=== PATIENT | male | born 1935 | race Caucasian/White ===

== ENCOUNTER 2017-01-08 14:53 | Emergency (ER) | payer MEDICARE, OTHER ==
[~2017-01-08] VITALS: Ht 185.4 cm; Wt 100.0 kg
[~2017-01-08 14:53] MED LIST: ASPI-99 PO; ATOR80TA41; BRIM.2%O EACH EYE; CLOP75 PO; CORE6.25 PO; DORZO2%O EACH EYE; FIORTAB4 PO; LISI-357 PO; MULTTAB23 PO; OMEP20TA PO; SYNT25TA PO; VITA500S3 PO; [UNRECOGNIZED DRUG - OTHER] EACH EYE
[2017-01-08 14:56] VITALS: BP 135/63; PULSE 64; RESP 22; TEMP 98.4; O2SAT 97
--- NOTE | 2017-01-08 15:42 | PD ---
HPI Chief Complaint: Back/ Neck Pain or Injury Time Seen by Provider: 15:42 Travel History International Travel<30 days: No Contact w/Intl Traveler<30days: No Traveled to known affect area: No History of Present Illness HPI 81-year-old male presents to the ED for evaluation of 2 day history of cramping back pain. Gradual onset. Worsened by certain movements. Patient thinks this may be due to sleeping in a friend's bed. States that he flew from [place] 2 days ago and is here to evaluate assisted living facilities. He ambulates with a walker. 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 He denies fever, chills, dysuria, loss of control of his bowels. No treatment at home. PFSH Past Medical History Arthritis: Yes Asthma: No Blood Disorders: No Cancer: Yes (PROSTATE) Cardiovascular Problems: No High Cholesterol: Yes Chemotherapy: No Chest Pain: No Congestive Heart Failure: No COPD: No Cerebrovascular Accident: Yes Endocrine: No Gastrointestinal Disorders: Yes GERD: No Glaucoma: Yes Genitourinary: Yes Headaches: Yes Hepatitis: No Hiatal Hernia: No Hypertension: No Immune Disorder: No Implanted Vascular Access Dvce: No Kidney Stones: Yes Musculoskeletal: No Neurologic: Yes (SDH 07/26/10) Psychiatric: No Reproductive: No Respiratory: Yes Migraines: No Myocardial Infarction: No Radiation Therapy: No Seizures: Yes Sleep Apnea: Yes (WHERES CPAP AT HOME AT NIGHT) Ulcer: Yes (HX OF ESOPHAGEAL ULCERS) Past Surgical History Abdominal Surgery: No AICD: No Appendectomy: No Cardiac Surgery: No Cholecystectomy: No Ear Surgery: No Endocrine Surgery: No Eye Surgery: Yes (RIGHT EYE CATARACT SX) Genitourinary Surgery: Yes (RADICAL PROSTATECTOMY) Gynecologic Surgery: No Joint Replacement: No Neurologic Surgery: Yes (BRAIN SURGERY SHUNT IN 1966 R/T MENINGITITIS PER PT) Oral Surgery: Yes Pacemaker: No Prostatectomy: Yes Thoracic Surgery: No Social History Alcohol Use: No Tobacco Use: No Substance Use: No Allergies-Medications (Allergen,Severity, Reaction): Coded Allergies: Voltaren (Verified Allergy, Severe, Edema, 01/02/13) Reported Meds & Prescriptions Reported Meds & Active Scripts Active Tramadol (Tramadol HCl) 50 Mg Tab 50 Mg PO Q6H PRN Robaxin (Methocarbamol) 500 Mg Tab 1,000 Mg PO TID Reported Lipitor 80 Mg Tab (Atorvastatin) 80 Mg Tab 80 Mg .XX DAILY Coreg (Carvedilol) 6.25 Mg Tab 6.25 Mg PO BID Plavix (Clopidogrel Bisulfate) 75 Mg Tab 75 Mg PO DAILY Aspirin 81 Mg Tab 81 Mg PO DAILY Lisinopril 5 mg (Lisinopril) 5 Mg Tab 5 Mg PO DAILY Esgic Tab (Acetaminophen/Butalbital/Caffeine) 1 Tab Tab 1 Tab PO Q6HPRN FOR PAIN Vitamin B-12 (Cyanocobalamin) 500 Mcg Marcelina 500 Mcg PO DAILY Multi For Him 50+ (Multiple Vitamins W/ Minerals) For Him Tab 1 Tab PO DAILY Omeprazole 20 mg (Omeprazole) 20 Mg Tab 20 Mg PO DAILY Pilocarpine Hcl 1 % Divya 1 Drop EACH EYE BID Trusopt 2% Opht Soln (Dorzolamide HCl) 200 Drop/10 Ml Soln 1 Drop EACH EYE BID Synthroid (Levothyroxine Sodium) 25 Mcg Tab 50 Mcg PO DAILY Alphagan 0.2% (Brimonidine Tartrate) 5 Ml Soln 1 Drop EACH EYE BID Review of Systems Except as stated in HPI: all other systems reviewed are Neg Physical Exam Narrative GENERAL: Well-nourished, well-developed white male in no acute distress. SKIN: Focused skin assessment warm/dry. HEAD: Normocephalic. EYES: No scleral icterus. No injection or drainage. NECK: Supple, trachea midline. No JVD or lymphadenopathy. CARDIOVASCULAR: Regular rate and rhythm without murmurs, gallops, or rubs. RESPIRATORY: Breath sounds clear and equal bilaterally. No accessory muscle use. GASTROINTESTINAL: Abdomen soft, non-tender, nondistended. MUSCULOSKELETAL: No cyanosis, or edema. 5/5 strength in bilateral lower extremities. BACK: No obvious deformity. No CVA tenderness. ++midline TTP in the midlumbar region. Palpable spasm of the paraspinal musculature in the lumbar region. Data Data Last Documented VS Vital Signs Date Time Temp Pulse Resp B/P Pulse Ox O2 Delivery O2 Flow Rate FiO2 01/08/17 14:56 98.4 64 22 135/63 97 Room Air Orders Spine, Lumbar - Ltd (Ap & Lat) (01/08/17 15:57) Methocarbamol Inj (Robaxin Inj) (01/08/17 16:00) Tramadol (Ultram) (01/08/17 16:00) [facility] Medical Decision Making Medical Screen Exam Complete: Yes Emergency Medical Condition: Yes Differential Diagnosis Acute on chronic back pain versus muscle spasm versus low back pain versus muscle strain versus musculoskeletal pain versus other. Narrative Course 81-year-old male presents to the ED for evaluation of 2 day history of cramping back pain. Gradual onset. Worsened by certain movements. Patient thinks this may be due to sleeping in a friend's bed. States that he flew from [place] 2 days ago and is here to evaluate assisted living facilities. He ambulates with a walker. 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 He denies fever, chills, dysuria, loss of control of his bowels. Patient states his narcotic pain medications were taken by the [employer] when he boarded his flight. Unsure of the meds he is prescribed at home. There is mild TTP of the midline and palpable spasms in the lumbar region. X-ray reveals no bony injury. Review of record reveals less than optimal kidney function. I'll avoid NSAIDS. Patient was administered by mouth Tramadol and IM Robaxin. He is prescribed a short course of tramadol and Robaxin, instructed to take medications as prescribed, return to normal, gentle activity as tolerated, follow-up with primary care provider. The patient indicated understanding of instructions and is agreeable to the care plan. He is stable and discharged home. Diagnosis Primary Impression: Muscle spasm Additional Impression: Low back pain Qualified Code: M54.5 - Acute midline low back pain without sciatica Referrals: Primary Care Physician Patient Instructions: Acute Low Back Pain (ED), General Instructions, Muscle Spasm (ED) Additional Instructions: Rest, HYDRATE. Return to normal, gentle activities as tolerated. A mixture of rest and activity is best for back pain. Take Tylenol as directed on the label, as needed for pain. Take muscle relaxants as prescribed for continued muscle spasm. Tramadol as needed for pain greater than 6. [address] while taking tramadol or muscle relaxants. Follow up with your primary care provider. Return to the ED for any urgent or emergent medical condition. Scripts Tramadol 50 Mg Tab50 Mg PO Q6H PRN (PAIN GREATER THAN 6) #6 TAB Ref 0 Prov:Gumaro Fisher MD 01/08/17 Methocarbamol (Robaxin)500 Mg Tab1,000 Mg PO TID #12 TAB Ref 0 Prov:Gumaro Fisher MD 01/08/17 Disposition: 01 DISCHARGE HOME Condition: Stable Maria Luisa Fry Jan 08, 2017 15:42
[2017-01-08] MEDS ORDERED: METHOCARBAMOL 1000 MG/10 ML VIAL IM ONE (16:00)
[2017-01-08] MEDS ORDERED: traMADol HCL 50 MG TAB PO ONE (16:00)
[2017-01-08] MEDS ORDERED: TRAM50TA PO (16:16)
[2017-01-08] MEDS ORDERED: ROBA500T PO (16:16)
--- NOTE | 2017-01-08 17:01 | RADRPT ---
EXAM DATE/TIME: 01/08/2017 16:31 [facility] COMPARISON: No previous studies available for comparison. INDICATIONS : Lumbar spine pain, stiffness, and muscle spasms. MEDICAL HISTORY : None. SURGICAL HISTORY : Prostate. ENCOUNTER: Initial ACUITY: 1 day PAIN SCORE: 10/10 LOCATION: lumbar FINDINGS: Two view examination was performed. There are five non-rib bearing vertebral bodies. The vertebral bodies are in normal alignment without evidence of subluxation or scoliosis. Degenerative disease ran ging from mild to mass is noted. There is evidence of disc space narrowing with endplate sclerosis. T he most advanced changes are identified at L2-3 and L5-S1. Significant facet arthropathy is identifie d in the lower lumbar spine at L4-5 and L5-S1.. The pedicles are intact. Bony mineralization is nor mal. No fracture is identified. CONCLUSION: Degenerative disc disease and facet arthropathy. No evidence of acute bony abnormality. Gabriel Guerrero MD on January 08, 2017 at 16:57 Board Certified Radiologist. This report was verified electronically.
--- NOTE | 2017-01-08 17:04 | PD ---
Data Data Last Documented VS Vital Signs Date Time Temp Pulse Resp B/P Pulse Ox O2 Delivery O2 Flow Rate FiO2 01/08/17 14:56 98.4 64 22 135/63 97 Room Air Orders Spine, Lumbar - Ltd (Ap & Lat) (01/08/17 15:57) Methocarbamol Inj (Robaxin Inj) (01/08/17 16:00) Tramadol (Ultram) (01/08/17 16:00) MDM Supervised Visit with COLEMAN: Yes Narrative Course The history, exam, and medical decision-making in the associated mid-level provider note were completed with my assistance. I reviewed and agree with the findings presented. I attest that I had a [id number] encounter with the patient on the same day, and personally performed and documented my assessment and findings in the medical record. *My assessment and Findings: 81-year-old man, low back pain, nontraumatic. Somebody give a history of same. He recently flew down here. He relates to the 1 number his medicines on the airplane. He looks overall well. He has some chronic kidney disease and shouldn't take NSAIDs. We'll recommend outpatient follow-up. Diagnosis Primary Impression: Muscle spasm Additional Impression: Low back pain Qualified Code: M54.5 - Acute midline low back pain without sciatica Referrals: Primary Care Physician Patient Instructions: General Instructions, Acute Low Back Pain (ED), Muscle Spasm (ED) Additional Instruction: Rest, HYDRATE. Return to normal, gentle activities as tolerated. A mixture of rest and activity is best for back pain. Take Tylenol as directed on the label, as needed for pain. Take muscle relaxants as prescribed for continued muscle spasm. Tramadol as needed for pain greater than 6. [address] while taking tramadol or muscle relaxants. Follow up with your primary care provider. Return to the ED for any urgent or emergent medical condition. Scripts Tramadol 50 Mg Tab50 Mg PO Q6H PRN (PAIN GREATER THAN 6) #6 TAB Ref 0 Prov:Gumaro Fisher MD 01/08/17 Methocarbamol (Robaxin)500 Mg Tab1,000 Mg PO TID #12 TAB Ref 0 Prov:Gumaro Fisher MD 01/08/17 Disposition: 01 DISCHARGE HOME Condition: Stable Gumaro Fisher MD Jan 08, 2017 17:04
== END 2017-01-08 19:48 | disposition home or self-care (01) ==
LOC: NEPD 14:53
DX: M62.838 Other muscle spasm (principal); M54.5 Low back pain; N18.9 Chronic kidney disease, unspecified; M13.80 Other specified arthritis, unspecified site; E78.00 Pure hypercholesterolemia, unspecified; H40.9 Unspecified glaucoma; Z87.442 Personal history of urinary calculi; Z79.02 Long term (current) use of antithrombotics/antiplatelets; Z86.73 Personal history of transient ischemic attack (TIA), and cerebral infarction without residual deficits; Z79.82 Long term (current) use of aspirin
CPT/HCPCS: 72100; 96372; 99284; J2800

== ENCOUNTER 2017-03-08 19:16 | Inpatient (IN) | payer OTHER, MEDICARE ==
[~2017-03-08] VITALS: Ht 175.3 cm; Wt 94.6 kg
[~2017-03-08 19:16] MED LIST changes: +ROBA500T PO; +TRAM50TA PO
[2017-03-08 19:35] VITALS: BP 156/67; PULSE 57; RESP 18; TEMP 98.3; O2SAT 100
[2017-03-08] MEDS ORDERED: SODIUM CHLORIDE 0.9% FLUSH 10 ML FLUSH IV FLUSH PRN ×2 (19:45→22:45)
[2017-03-08] MEDS ORDERED: SODIUM CHLORID 0.9% 500 ML INJ 500 ML IV ONE (19:45)
[2017-03-08] MEDS ORDERED: ONDANSETRON HCL 4 MG/2 ML VIAL IVP ONE (19:45)
[2017-03-08] MEDS ORDERED: MORPHINE SULFATE 8 MG/ML INJ IV PUSH ONE (19:45)
[2017-03-08 20:04] LABS: BASOPHIL # 0.1 TH/MM3 (0-0.2); BASOPHIL % 0.5 % (0.0-2.0); EOSINOPHIL # 0.1 TH/MM3 (0-0.4); EOSINOPHIL % 1.1 % (0.0-4.0); HEMATOCRIT 35.9 % (39.0-51.0); HEMO FLAGS DIFF FINAL; LYMPH % 13.3 % (9.0-44.0); LYMPHOCYTE # 1.7 TH/MM3 (1.0-4.8); MEAN CELL VOLUME 87.4 FL (80.0-100.0); MEAN CORPUSCULAR HEMOGLOBIN 30.4 PG (27.0-34.0); MEAN CORPUSCULAR HGB CONC 34.8 % (32.0-36.0); NEUT % 77.1 % (16.0-70.0); PLATELET COUNT 208 TH/MM3 (150-450); RED CELL DISTRIBUTION WIDTH 14.5 % (11.6-17.2); WHITE BLOOD COUNT 12.9 TH/MM3 (4.0-11.0)
[2017-03-08 20:05] LABS: BLOOD, URINE TRACE (NEG); COMMENT (UR) CULT NOT INDICATED; CULTURE IF INDICATED CULT NOT INDICATED; GLUCOSE,URINE NEG (NEG); HYALINE CAST, URINE 19 /lpf (RARE); KETONE, URINE NEG (NEG); MUCUS URINE FEW /lpf (OCC); NITRITE,URINE NEG (NEG); PH, URINE 5.5 (5.0-8.5); SQUAMOUS EPITHELIAL CELL URINE 1 /hpf (0-5); URINE COLOR YELLOW (YELLW/STRAW)
[2017-03-08 20:10] VITALS: O2SAT 98
[2017-03-08] MEDS ORDERED: BACL10TA PO (20:35)
[2017-03-08] MEDS ORDERED: PLAV75TA29 PO (20:35)
[2017-03-08] MEDS ORDERED: GABA100C4 PO (20:35)
[2017-03-08] MEDS ORDERED: ASPI81TA11 PO (20:35)
[2017-03-08] MEDS ORDERED: OMEP20TA PO (20:35)
[2017-03-08] MEDS ORDERED: DONE5TAB7 PO (20:35)
[2017-03-08] MEDS ORDERED: CARV3.12 PO (20:35)
[2017-03-08] MEDS ORDERED: EFFE25TA PO (20:35)
[2017-03-08] MEDS ORDERED: FURO40TA PO (20:35)
[2017-03-08] MEDS ORDERED: SERT-129 PO (20:35)
[2017-03-08 20:37] LABS: ALKALINE PHOSPHATASE 83 U/L (45-117); ALT (GPT) 31 U/L (12-78); ANION GAP 15 MEQ/L (5-15); AST (GOT) 73 U/L (15-37); BICARBONATE 28.3 MEQ/L (21.0-32.0); BLOOD UREA NITROGEN 69 MG/DL (7-18); CHLORIDE 89 MEQ/L (98-107); GLOMERULAR FILTRATION RATE 20 ML/MIN (>89); SODIUM (NA) 132 MEQ/L (136-145)
[2017-03-08 20:39] LABS: POTASSIUM 2.8 MEQ/L (3.5-5.1)
[2017-03-08] MEDS ORDERED: POTASSIUM CHLORIDE 20 MEQ CONTROLLED RELEASE TAB PO ONE (20:45)
--- NOTE | 2017-03-08 21:59 | PD ---
HPI Chief Complaint: Flank/Kidney Pain Time Seen by Provider: 19:41 Travel History International Travel<30 days: No Contact w/Intl Traveler<30days: No Traveled to known affect area: No History of Present Illness HPI 81-year-old male came to the emergency room with history of severe back pain radiating to the anterior abdominal area that's been going on since yesterday. Patient was brought in by the EMS and as per the paramedics patient had gone to the [facility] yesterday with similar complaint and was told that he had kidney stones. Patient appeared to be in significant discomfort. He was hyperventilating and unable to give any good history because of the pain. Vital signs were stable. Patient had the discharge instructions from [facility] which said mostly back pain and patient seemed to have been discharged home on baclofen. [facility] Past Medical History Narrative Medical List of his past medical, surgical, social and family history is reviewed from the nursing note. Arthritis: Yes Asthma: No Blood Disorders: No Cancer: Yes (PROSTATE) Cardiovascular Problems: No High Cholesterol: Yes Chemotherapy: No Chest Pain: No Congestive Heart Failure: No COPD: No Cerebrovascular Accident: Yes Endocrine: No Gastrointestinal Disorders: Yes GERD: No Glaucoma: Yes Genitourinary: Yes Headaches: Yes Hepatitis: No Hiatal Hernia: No Hypertension: No Immune Disorder: No Implanted Vascular Access Dvce: No Kidney Stones: Yes Musculoskeletal: No Neurologic: Yes (SDH 07/26/10) Psychiatric: No Reproductive: No Respiratory: Yes Migraines: No Myocardial Infarction: No Radiation Therapy: No Seizures: Yes Sleep Apnea: Yes (WHERES CPAP AT HOME AT NIGHT) Ulcer: Yes (HX OF ESOPHAGEAL ULCERS) Tetanus Vaccination: < 5 Years Influenza Vaccination: Yes Past Surgical History Abdominal Surgery: No AICD: No Appendectomy: No Cardiac Surgery: No Cholecystectomy: No Ear Surgery: No Endocrine Surgery: No Eye Surgery: Yes (RIGHT EYE CATARACT SX) Genitourinary Surgery: Yes (RADICAL PROSTATECTOMY) Gynecologic Surgery: No Joint Replacement: No Neurologic Surgery: Yes (BRAIN SURGERY SHUNT IN 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 Reported Meds & Prescriptions Reported Meds & Active Scripts Active Reported Allopurinol 100 Mg Tab 100 Mg PO DAILY Isosorbide Mononitrate ER (Isosorbide Mononitrate) 60 Mg Tab 60 Mg PO DAILY Levothyroxine (Levothyroxine Sodium) 75 Mcg Tab 75 Mcg PO DAILY Atorvastatin (Atorvastatin Calcium) 80 Mg Tab 80 Mg PO HS Pilocarpine Opth 4% (Pilocarpine HCl) 4 % Soln 1 Drop EACH EYE BID Dorzolamide Opth Drops (Dorzolamide HCl) 2% Soln 1 Drop EACH EYE TID Omeprazole 20 Mg Tab 20 Mg PO DAILY Donepezil 5 Mg Tab 5 Mg PO HS Gabapentin 100 Mg Cap 100 Mg PO BID Baclofen 10 Mg Tab 10 Mg PO TID Furosemide 40 Mg Tab 40 Mg PO BID TAKE 40 MG AM AND 20 MG PM Carvedilol 3.125 Mg Tab 3.125 Mg PO BID Plavix (Clopidogrel Bisulfate) 75 Mg Tab 75 Mg PO DAILY Aspirin EC (Aspirin) 81 Mg Tabdr 81 Mg PO DAILY Effer-K (Potassium Bicarbonate) 25 Meq Tab 1 Tab PO BID TAKE FOR 5 DAYS STARTING 03/02/17 Sertraline (Sertraline HCl) 100 Mg Tab 100 Mg PO DAILY Narrative Medication List of his home medications reviewed from the nursing note. Review of Systems Except as stated in HPI: all other systems reviewed are Neg Physical Exam Narrative GENERAL: Awake, alert, elderly, anxious and significant distress SKIN: Focused skin assessment warm/dry. HEAD: Atraumatic. Normocephalic. EYES: Pupils equal and round. No scleral icterus. No injection or drainage. ENT: No nasal bleeding or discharge. Mucous membranes pink and moist. NECK: Trachea midline. No JVD. CARDIOVASCULAR: Regular rate and rhythm. No murmur appreciated. RESPIRATORY: No accessory muscle use. Clear to auscultation. Breath sounds equal bilaterally. GASTROINTESTINAL: Abdomen soft, generalized tenderness, distended. Hepatic and splenic margins not palpable. MUSCULOSKELETAL: No obvious deformities. No clubbing. No cyanosis. No edema. NEUROLOGICAL: Awake and alert. No obvious cranial nerve deficits. Motor grossly within normal limits. Normal speech. PSYCHIATRIC: Appropriate mood and affect; insight and judgment normal. Data Data Last Documented VS Vital Signs Date Time Temp Pulse Resp B/P (MAP) Pulse Ox O2 Delivery O2 Flow Rate FiO2 03/08/17 20:10 98 Room Air 03/08/17 19:39 91 18 03/08/17 19:35 98.3 156/67 (96) Orders Orders Complete Blood Count With Diff (03/08/17 19:41) Comprehensive Metabolic Panel (03/08/17 19:41) Lipase (03/08/17 19:41) Urinalysis - C+S If Indicated (03/08/17 19:41) Iv Access Insert/Monitor (03/08/17 19:41) Ecg Monitoring (03/08/17 19:41) Oximetry (03/08/17 19:41) Ondansetron Inj (Zofran Inj) (03/08/17 19:45) Sodium Chloride 0.9% Flush (Ns Flush) (03/08/17 19:45) Morphine Inj (Morphine Inj) (03/08/17 19:45) Sodium Chlorid 0.9% 500 Ml Inj (Ns 500 M (03/08/17 19:45) Potassium Chloride (Kcl) (03/08/17 20:45) Urinary Catheter Insert/Apply (03/08/17 21:24) Ct Abd/Pel W/O Iv Contrast (03/08/17 19:41) Admit To Inpatient (03/08/17 ) Vital Signs (Adult) Q4H (03/08/17 22:32) Activity Oob With Assistance (03/08/17 22:32) Intake + Output DIANE.QSHIFT (03/08/17 22:32) Diet Regular Basic (03/09/17 Breakfast) Sodium Chlor 0.9% 1000 Ml Inj (Ns 1000 M (03/08/17 22:32) Sodium Chloride 0.9% Flush (Ns Flush) (03/08/17 22:45) Sodium Chloride 0.9% Flush (Ns Flush) (03/09/17 09:00) Ondansetron Inj (Zofran Inj) (03/08/17 22:45) Comprehensive Metabolic Panel (03/09/17 06:00) Complete Blood Count With Diff (03/09/17 06:00) Acetaminophen (Tylenol) (03/08/17 22:45) Acetamin-Hydrocod 325-5 Mg ([place] 5-325 (03/08/17 22:45) Hydromorphone Pf Inj (Dilaudid Pf Inj) (03/08/17 22:45) Docusate Sodium-Senna (Jojo-Colace) (03/09/17 09:00) Magnesium Hydroxide Liq (Milk Of Magnesi (03/08/17 22:45) Sennosides (Senokot) (03/08/17 22:45) Bisacodyl Supp (Dulcolax Supp) (03/08/17 22:45) Lactulose Liq (Lactulose Liq) (03/08/17 22:45) Inpatient Certification (03/08/17 ) Scd&Teds Bilateral/Knee High DIANE.QSHIFT (03/08/17 22:32) Baclofen (Lioresal) (03/09/17 09:00) Carvedilol (Coreg) (03/09/17 09:00) Donepezil (Aricept) (03/09/17 21:00) Sertraline (Zoloft) (03/09/17 09:00) Us Kidney/Renal/Bladder (03/08/17 ) Admit Order (Ed Use Only) (03/08/17 23:06) Labs Laboratory Tests Test 03/08/17 19:52 White Blood Count 12.9 TH/MM3 Red Blood Count 4.10 MIL/MM3 Hemoglobin 12.5 GM/DL Hematocrit 35.9 % Mean Corpuscular Volume 87.4 FL Mean Corpuscular Hemoglobin 30.4 PG Mean Corpuscular Hemoglobin Concent 34.8 % Red Cell Distribution Width 14.5 % Platelet Count 208 TH/MM3 Mean Platelet Volume 7.8 FL Neutrophils (%) (Auto) 77.1 % Lymphocytes (%) (Auto) 13.3 % Monocytes (%) (Auto) 8.0 % Eosinophils (%) (Auto) 1.1 % Basophils (%) (Auto) 0.5 % Neutrophils # (Auto) 10.0 TH/MM3 Lymphocytes # (Auto) 1.7 TH/MM3 Monocytes # (Auto) 1.0 TH/MM3 Eosinophils # (Auto) 0.1 TH/MM3 Basophils # (Auto) 0.1 TH/MM3 CBC Comment DIFF FINAL Differential Comment Urine Color YELLOW Urine Turbidity HAZY Urine pH 5.5 Urine Specific [place] 1.019 Urine Protein 30 mg/dL Urine Glucose (UA) NEG mg/dL Urine Ketones NEG mg/dL Urine Occult Blood TRACE Urine Nitrite NEG Urine Bilirubin NEG Urine Urobilinogen 2.0 MG/DL Urine Leukocyte Esterase NEG Urine RBC 1 /hpf Urine WBC 6 /hpf Urine Squamous Epithelial Cells 1 /hpf Urine Hyaline Casts 19 /lpf Urine Mucus FEW /lpf Microscopic Urinalysis Comment CULT NOT INDICATED Blood Urea Nitrogen 69 MG/DL Creatinine 3.03 MG/DL Random Glucose 153 MG/DL Total Protein 8.5 GM/DL Albumin 3.0 GM/DL Calcium Level 8.4 MG/DL Alkaline Phosphatase 83 U/L Aspartate Amino Transf (AST/SGOT) 73 U/L Alanine Aminotransferase (ALT/SGPT) 31 U/L Total Bilirubin 1.0 MG/DL Sodium Level 132 MEQ/L Potassium Level 2.8 MEQ/L Chloride Level 89 MEQ/L Carbon Dioxide Level 28.3 MEQ/L Anion Gap 15 MEQ/L Estimat Glomerular Filtration Rate 20 ML/MIN Lipase 167 U/L [facility] Medical Decision Making Medical Screen Exam Complete: Yes Emergency Medical Condition: Yes Medical Record Reviewed: Yes Differential Diagnosis AAA rupture, ureteral colic, peritonitis, perforated viscus Narrative Course 11:15 PM blood test results are back. Patient has hyperkalemia as well as acute renal failure. Compared to his blood test from 2013 from here these are new findings. All the test results were faxed from [facility]. Patient's last blood test there was January 22 of this year. His creatinine was 1.68 at that time. Also based on their report patient has had persistent hypokalemia probably from being on Lasix 40 mg twice a day. He does have potassium supplementation in his list of medications. I ordered Nelson catheter just to make sure there is no outlet obstruction. He had a CT scan of his abdomen and pelvis done yesterday which showed nephrolithiasis, gallstones without any acute disease and scoliosis with DJD. I've given the patient 1 L of IV fluid bolus. He was given morphine initially when he came in which has caused the pain to subside. The CT scan report came back and it was essentially negative for any acute changes. I have admitted the patient to the hospitalist for acute renal failure and intractable pain. Procedures EKG Prior to Arrival: No Diagnosis Primary Impression: Acute renal failure Qualified Codes: N17.9 - Acute kidney failure, unspecified Additional Impressions: Dehydration Intractable back pain Hypokalemia Admitting Information Admitting Physician Requests: Admit Aria Rainey MD Mar 08, 2017 21:59
--- NOTE | 2017-03-08 22:38 | HHI.HP ---
[facility] No Primary Care Physician Admission Diagnosis Diagnoses: (1) Intractable back pain Diagnosis: Principal (2) Renal stone Diagnosis: Principal (3) Hypokalemia Diagnosis: Principal (4) EVANGELISTA (acute kidney injury) Diagnosis: Principal Travel History International Travel<30 Days: No Contact w/Intl Traveler <30 Da: No Traveled to Known Affected Are: No History of Present Illness This is an 81-year-old male with a PMH of Prostate CA, h/o CVA, HTN, Renal Stones and Sleep Apnea who was brought to the ER by EMS secondary to complaints of severe back pain. Difficult to obtain history from patient secondary to severity of symptoms. Denies recent injury/trauma. No fever, chills, weakness or incontinence. Seen at [facility] for similar complaints on 03/08/17, s/p CT Abd/Pelvis w/ nonobstructing right renal calculous w/o hydronephrosis, large partially calcified gallstone w/ no evidence of cholecystitis and lumbar spondylosis w/ multilevel disk disease worse at L5-S1 w/ severe leftward neural foraminal narrowing. Was Rx Baclofen and d/c'd home. States pain became unbearable tonight. No h/o similar symptoms. Reports back pain bilateral flank , no radicular pain. On arrival, BP 156/67, HR 57, O2 sat 100% on RA, Afebrile. WBC 12.9. K+ 2.8, creatinine 3.03, previously 1.35 on 01/06/13. UA negative. CT Abd/Pelvis w/ 3cm calcified gallstone, 2.5cm low density lesion left lobe liver, recommendation for outpatient MRI, non-obstructing right renal calculi, multi-level spinal stenosis. S/p Morphine/Zofran in ER w/ minimal improvement in pain complaints. Review of Systems Except as stated in HPI: all other systems reviewed are Neg ROS: 14 point review of systems otherwise negative. Past Family Social History Past Medical History PMH: Prostate CA, h/o CVA, HTN, Renal Stones and Sleep Apnea Past Surgical History PAST SURGICAL HISTORY: Cataract Surgery, Radical Prostatectomy, Brain Surgery Allergies: Coded Allergies: diclofenac (Unverified Allergy, Severe, Edema, 03/08/17) povidone-iodine (Verified Allergy, Severe, 03/08/17) soap (Verified Allergy, Severe, 03/08/17) Family History PAST FAMILY HISTORY: Reviewed. No h/o DM or CAD Social History PAST SOCIAL HISTORY: Negative for alcohol, tobacco or drugs. Physical Exam Vital Signs Vital Signs Date Time Temp Pulse Resp B/P (MAP) Pulse Ox O2 Delivery O2 Flow Rate FiO2 03/08/17 20:10 98 Room Air 03/08/17 19:39 91 18 03/08/17 19:35 98.3 57 18 156/67 (96) 100 Physical Exam PE: GENERAL: Elderly white male in significant distress secondary to pain HEENT: PERRLA, EOMI. No scleral icterus or conjunctival pallor. No lid lag or facial droop. CARDIOVASCULAR: Regular rate and rhythm. No obvious murmurs to auscultation. No chest tenderness to palpation. RESPIRATORY: No obvious rhonchi or wheezing. Clear to auscultation. Breath sounds equal bilaterally. GASTROINTESTINAL: Abdomen soft, non-tender, +mild distention. BS normal. Nelson in place MUSCULOSKELETAL: Extremities without clubbing, cyanosis, or edema. No obvious deformities. Bilateral flank tenderness to palpation, worse on right. NEUROLOGICAL: Awake, alert and oriented x4. No focal neurologic deficits. Moving both upper and lower extremities spontaneously. Laboratory Laboratory Tests Test 03/08/17 19:52 White Blood Count 12.9 Red Blood Count 4.10 Hemoglobin 12.5 Hematocrit 35.9 Mean Corpuscular Volume 87.4 Mean Corpuscular Hemoglobin 30.4 Mean Corpuscular Hemoglobin Concent 34.8 Red Cell Distribution Width 14.5 Platelet Count 208 Mean Platelet Volume 7.8 Neutrophils (%) (Auto) 77.1 Lymphocytes (%) (Auto) 13.3 Monocytes (%) (Auto) 8.0 Eosinophils (%) (Auto) 1.1 Basophils (%) (Auto) 0.5 Neutrophils # (Auto) 10.0 Lymphocytes # (Auto) 1.7 Monocytes # (Auto) 1.0 Eosinophils # (Auto) 0.1 Basophils # (Auto) 0.1 CBC Comment DIFF FINAL Differential Comment Urine Color YELLOW Urine Turbidity HAZY Urine pH 5.5 Urine Specific [place] 1.019 Urine Protein 30 Urine Glucose (UA) NEG Urine Ketones NEG Urine Occult Blood TRACE Urine Nitrite NEG Urine Bilirubin NEG Urine Urobilinogen 2.0 Urine Leukocyte Esterase NEG Urine RBC 1 Urine WBC 6 Urine Squamous Epithelial Cells 1 Urine Hyaline Casts 19 Urine Mucus FEW Microscopic Urinalysis Comment CULT NOT INDICATED Blood Urea Nitrogen 69 Creatinine 3.03 Random Glucose 153 Total Protein 8.5 Albumin 3.0 Calcium Level 8.4 Alkaline Phosphatase 83 Aspartate Amino Transf (AST/SGOT) 73 Alanine Aminotransferase (ALT/SGPT) 31 Total Bilirubin 1.0 Sodium Level 132 Potassium Level 2.8 Chloride Level 89 Carbon Dioxide Level 28.3 Anion Gap 15 Estimat Glomerular Filtration Rate 20 Lipase 167 Result Diagram: 03/08/17195103/08/171951 Caprini VTE Risk Assessment Darini VTE Risk Assessment: Mod/High Risk (score >= 2) Caprini Risk Assessment Model Point Value = 1 Point Value = 2 Point Value = 3 Point Value = 5 Age 41-60 Minor surgery BMI > 25 kg/m2 Swollen legs Varicose veins or History of unexplained or recurrent spontaneous Oral contraceptives or hormone replacement Sepsis (< 1 month) Serious lung disease, including pneumonia (< 1 month) Abnormal pulmonary function Acute myocardial infarction Congestive heart failure (< 1 month) History of inflammatory bowel disease Medical patient at bed rest Age 61-74 Arthroscopic surgery Major open surgery (> 45 min) Laparoscopic surgery (> 45 min) Malignancy Confined to bed (> 72 hours) Immobilizing plaster cast Central venous access Age >= 75 History of VTE Family history of VTE Factor V Leiden Prothrombin [id number] Lupus anticoagulant Anticardiolipin antibodies Elevated serum homocysteine Heparin-induced thrombocytopenia Other congenital or acquired thrombophilia Stroke (< 1 month) Elective arthroplasty Hip, pelvis, or leg fracture Acute spinal cord injury (< 1 month) Prophylaxis Regimen Total Risk Factor Score Risk Level Prophylaxis Regimen 0-1 Low Early ambulation 2 Moderate Order ONE of the following: *Sequential Compression Device (SCD) *Heparin 5000 units SQ BID 3-4 Higher Order ONE of the following medications: *Heparin 5000 units SQ TID *Enoxaparin/Lovenox 40 mg SQ daily (WT < 150 kg, CrCl > 30 mL/min) *Enoxaparin/Lovenox 30 mg SQ daily (WT < 150 kg, CrCl > 10-29 mL/min) *Enoxaparin/Lovenox 30 mg SQ BID (WT < 150 kg, CrCl > 30 mL/min) AND/OR *Sequential Compression Device (SCD) 5 or more Highest Order ONE of the following medications: *Heparin 5000 units SQ TID (Preferred with Epidurals) *Enoxaparin/Lovenox 40 mg SQ daily (WT < 150 kg, CrCl > 30 mL/min) *Enoxaparin/Lovenox 30 mg SQ daily (WT < 150 kg, CrCl > 10-29 mL/min) *Enoxaparin/Lovenox 30 mg SQ BID (WT < 150 kg, CrCl > 30 mL/min) AND *Sequential Compression Device (SCD) Assessment and Plan Problem List: (1) Intractable back pain ICD Code: M54.9 - Dorsalgia, unspecified (2) Hypokalemia ICD Code: E87.6 - Hypokalemia (3) EVANGELISTA (acute kidney injury) ICD Code: N17.9 - Acute kidney failure, unspecified (4) Renal stone ICD Code: N20.0 - Calculus of kidney (5) Dehydration ICD Code: E86.0 - Dehydration Status: Acute Assessment and Plan A/P: 1. Intractable Back Pain: severe back pain, bilateral, no injury/trauma reported. CT Abd/Pelvis w/ multi-level degenerative disease w/ spinal stenosis , no incontinence/weakness. Presented to [facility] 03/08/17 for similar complaints, CT Abd/Pelvis w/ similar findings, report in chart, s/p Baclofen w/ no improvement. Continue analgesics/antiemetics. S/p Morphine in ER w/ little improvement, pt reports ALLERGY to Dilaudid, however cannot recall reaction, will continue w/ Morphine, Valium prn, Solu-Medrol. Pt for eval/tx. 2. Hypokalemia: K+ 2.8, on Lasix at home, s/p replacement in ER, will recheck and replace as needed. 3. EVANGELISTA: Acute on Chronic. Creatinine 3.03, previously 1.35 on 01/06/13, U/a negative, Nelson inserted in ER, monitor I/O closely. IVF for hydration. Check Renal US. Repeat labs in am. 4. Renal Stone: CT Abd/Pelvis w/ non-obstructing 3mm right renal stone, no evidence of hydronephrosis, images reviewed by me. 5. Dehydration: GFR 20, BUN/Creat elevated as above, IVF for hydration, repeat labs in am. 6. DVT Prophylaxis: Heparin sq 7. Social work for d/c planning as needed. 8. Case discussed w/ ER physician at length Physician Certification 2 Midnight Certification Type: Admission for Inpatient Services Order for Inpatient Services The services are ordered in accordance with Medicare regulations or non- Medicare payer requirements, as applicable. In the case of services not specified as inpatient-only, they are appropriately provided as inpatient services in accordance with the 2-midnight benchmark. Estimated LOS (days): 2 days is the estimated time the patient will need to remain in the hospital, assuming treatment plan goals are met and no additional complications. Post-Hospital Plan: Not yet determined Arlen Ordonez MD Mar 08, 2017 22:38
[2017-03-08] MEDS ORDERED: LACTULOSE SYRUP 20 GM/30 ML CUP PO PRN (22:45)
[2017-03-08] MEDS ORDERED: HYDROmorphone HCL PF 1 MG/ML VIAL IV PRN (22:45)
[2017-03-08] MEDS ORDERED: MAGNESIUM HYDROXIDE SUSP 30 ML CUP PO PRN (22:45)
[2017-03-08] MEDS ORDERED: ONDANSETRON HCL 4 MG/2 ML VIAL IVP PRN (22:45)
[2017-03-08] MEDS ORDERED: ACETAMINOPHEN 325 MG TAB PO PRN (22:45)
[2017-03-08] MEDS ORDERED: SENNOSIDES 8.6 MG TAB PO PRN (22:45)
[2017-03-08] MEDS ORDERED: BISACODYL 10 MG SUPP RECTAL PRN (22:45)
[2017-03-08] MEDS ORDERED: PILO4SOL EACH EYE (22:48)
[2017-03-08] MEDS ORDERED: DORZ2SOL EACH EYE (22:48)
[2017-03-08] MEDS ORDERED: ATOR1TAB18 PO (22:48)
[2017-03-08] MEDS ORDERED: ISOS60TA PO (22:48)
[2017-03-08] MEDS ORDERED: LEVO75TA3 PO (22:48)
[2017-03-08] MEDS ORDERED: ALLO100T PO (22:48)
--- NOTE | 2017-03-08 22:52 | RADRPT ---
EXAM DATE/TIME: 03/08/2017 22:08 [facility] COMPARISON: No previous studies available for comparison. INDICATIONS : Severe lower abdomen/back pain. ORAL CONTRAST: No oral contrast ingested. RADIATION DOSE: 16.97 CTDIvol (mGy) MEDICAL HISTORY : Carcinoma, prostate. Cerebrovascular disease. SURGICAL HISTORY : Prostatectomy. ENCOUNTER: Initial ACUITY: 1 day PAIN SCALE: 9/10 LOCATION: Bilateral lower back TECHNIQUE: Volumetric scanning of the abdomen and pelvis was performed. Using automated exposure control and ad justment of the mA and/or kV according to patient size, radiation dose was kept as low as reasonably achievable to obtain optimal diagnostic quality images. DICOM format image data is available electro nically for review and comparison. FINDINGS: There is a large calcified gallstone within the gallbladder lumen measuring 3 cm. The gallbladder is distended but it demonstrates no wall thickening or pericholecystic fluid. There is 2.5 cm low dens ity lesion within the left lobe of the liver in the dome which is indeterminate on this unenhanced ex amination. No biliary ductal dilatation is noted. The spleen is normal. There are two tiny calcifi ed non-obstructing right renal calculi with the larger of the two measuring 3 mm. No acute obstructi ve uropathy is noted. The abdominal aorta is calcified but is not aneurysmally dilated. The inferio r vena cava is normal.. There is no paraaortic hemorrhage or mesenteric lymphadenopathy. The pancrea s is normal. The adrenal glands are normal. The urinary bladder is unremarkable. Uncomplicated sig moid diverticulosis is noted. There is no acute diverticulitis. Calcified granulomas are noted with in the lung bases bilaterally. Degenerative changes and multi-level spinal stenoses are noted within the lumbar spine. CONCLUSION: 1. 3 cm calcified gallstone. 2. 2.5 cm low density lesion within the left lobe of the liver near the dome which is indeterminate o n this unenhanced examination. MRI of the abdomen with contrast as an outpatient could be performed for further evaluation of this finding if clinically indicated. 3. Uncomplicated sigmoid diverticulosis. 4. Calcified non-obstructing right renal calculi with the larger of the two measuring 3 mm. 5. 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 Jason Spencer MD on March 08, 2017 at 22:32 Board Certified Radiologist. This report was verified electronically.
[2017-03-08] MEDS ORDERED: methylPREDNISolone SOD SUCC 125 MG/2 ML VIAL IV PUSH ONE (23:15)
--- NOTE | 2017-03-08 23:24 | RADRPT ---
EXAM DATE/TIME: 03/08/2017 22:47 [facility] COMPARISON: CT ABDOMEN & PELVIS W/O CONTRAST, March 08, 2017, 22:08. INDICATIONS : Increased BUN and Creatinine. MEDICAL HISTORY : Hypercholesterolemia. Carcinoma, prostate. Glaucoma. Cerebrovascular accident. Seizures. Head traum a. Sleep apnea. Esophageal ulcer. Renal calculi. Arthritis. Meningitis. Subdural hematoma. SURGICAL HISTORY : Prostatectomy. Cataract and shunt surgery. ENCOUNTER: Initial ACUITY: 1 day PAIN SCORE: 9/10 LOCATION: Bilateral flank MEASUREMENTS: RIGHT KIDNEY: 9.8 x 5.4 x 5.0 cm LEFT KIDNEY: 11.5 x 4.7 x 5.4 cm FINDINGS: RIGHT KIDNEY: Renal cortex is normal in thickness and echotexture. No hydronephrosis, stone, or mass. LEFT KIDNEY: Renal cortex is normal in thickness and echotexture. No hydronephrosis, stone, or mass. BLADDER: Decompressed with Nelson catheter present. CONCLUSION: 1. Right kidney is slightly smaller than the left but otherwise no significant abnormality is identif ied. There is no hydronephrosis. 2. There is a single stone within the gallbladder. Juanito Le MD on March 08, 2017 at 23:19 Board Certified Radiologist. This report was verified electronically.
[2017-03-08] MEDS: MORPHINE SULFATE 4 MG/ML INJ IV PUSH PRN (23:44)
[2017-03-08] MEDS: SODIUM CHLOR 0.9% 1000 ML INJ 1,000 ML IV SCH (23:44)
[2017-03-09] VITALS (10 sets, daily range): BP systolic 113–140; BP diastolic 56–64; PULSE 49–58; RESP 16–20; TEMP 95.2–98.7; O2SAT 98–100
[2017-03-09] MEDS: DIAZEPAM 10 MG TAB PO PRN (01:02)
[2017-03-09 07:39] LABS: AUTOMATED NEUTROPHIL # 10.1 TH/MM3 (1.8-7.7); EOSINOPHIL % 0.1 % (0.0-4.0); HEMATOCRIT 36.9 % (39.0-51.0); HEMO FLAGS DIFF FINAL; LYMPH % 4.2 % (9.0-44.0); LYMPHOCYTE # 0.5 TH/MM3 (1.0-4.8); MEAN CELL VOLUME 88.7 FL (80.0-100.0); MEAN CORPUSCULAR HEMOGLOBIN 30.7 PG (27.0-34.0); MEAN CORPUSCULAR HGB CONC 34.6 % (32.0-36.0); MONO % 1.2 % (0.0-8.0); NEUT % 94.5 % (16.0-70.0); PLATELET COUNT 174 TH/MM3 (150-450); RED BLOOD COUNT 4.16 MIL/MM3 (4.50-5.90); RED CELL DISTRIBUTION WIDTH 14.2 % (11.6-17.2); WHITE BLOOD COUNT 10.7 TH/MM3 (4.0-11.0)
[2017-03-09 08:15] LABS: ALKALINE PHOSPHATASE 83 U/L (45-117); ALT (GPT) 31 U/L (12-78); ANION GAP 11 MEQ/L (5-15); AST (GOT) 53 U/L (15-37); BICARBONATE 29.4 MEQ/L (21.0-32.0); BLOOD UREA NITROGEN 62 MG/DL (7-18); CHLORIDE 94 MEQ/L (98-107); GLOMERULAR FILTRATION RATE 26 ML/MIN (>89); SODIUM (NA) 134 MEQ/L (136-145); TOTAL BILIRUBIN ADULT 0.6 MG/DL (0.2-1.0)
[2017-03-09] MEDS: SODIUM CHLOR 0.9% 1000 ML INJ 1,000 ML IV SCH ×2 (08:32→18:25)
[2017-03-09] MEDS: DOCUSATE SODIUM 50 MG/SENNA 8.6 MG TAB PO SCH ×2 (09:00→22:57)
[2017-03-09] MEDS: SODIUM CHLORIDE 0.9% FLUSH 10 ML FLUSH IV FLUSH SCH ×2 (09:00→21:00)
[2017-03-09] MEDS ORDERED: POTASSIUM CHLORIDE 10 MEQ CONTROLLED RELEASE TAB PO ONE ×2 (09:30→18:15)
[2017-03-09] MEDS: BACLOFEN 10 MG TAB PO SCH ×3 (09:50→18:00)
[2017-03-09] MEDS: HEPARIN SODIUM - SQ 10,000 UNITS/ML VIAL SQ SCH ×2 (09:50→22:57)
[2017-03-09] MEDS: DORZOLAMIDE 2% OPTH SOLN 200 DROP/10 ML BTLO EACH EYE SCH ×3 (09:50→18:00)
[2017-03-09] MEDS: CARVEDILOL 3.125 MG TAB PO SCH ×2 (09:50→22:57)
[2017-03-09] MEDS: SERTRALINE HCL 100 MG TAB PO SCH (09:50)
[2017-03-09] MEDS: ACETAMINOPHEN/HYDROcodone 325 MG/5 MG TAB PO PRN ×2 (09:50→22:57)
[2017-03-09] MEDS: PILOCARPINE HCL 4% EACH EYE SCH ×2 (09:51→22:58)
--- NOTE | 2017-03-09 14:06 | HHI.PR ---
Subjective Remarks Back pain is improved. Potassium levels are not improved. His potassium actually dropped to 2.0 from 2.8 previous day. Replacements have been provided and a afternoon lab draw is pending. Objective Vital Signs Date Time Temp Pulse Resp B/P (MAP) Pulse Ox O2 Delivery O2 Flow Rate FiO2 03/09/17 11:48 95.4 50 18 114/56 (75) 100 03/09/17 07:15 95.3 52 18 120/59 (79) 100 03/09/17 04:15 97.0 58 17 116/56 (76) 98 03/09/17 00:50 100 Nasal Cannula 2.00 03/09/17 00:39 96.9 52 17 130/62 (84) 100 03/09/17 00:04 16 03/09/17 00:02 98.1 49 16 140/64 (89) 98 Nasal Cannula 2.00 03/08/17 20:10 98 Room Air 03/08/17 19:39 91 18 03/08/17 19:35 98.3 57 18 156/67 (96) 100 I/O 03/08/17 03/08/17 03/08/17 03/09/17 03/09/17 03/09/17 07:00 15:00 23:00 07:00 15:00 23:00 Intake Total 500 ml 535 ml Output Total 300 ml Balance 500 ml 235 ml Intake Oral 0 ml IV Total 500 ml 535 ml Output Urine Total 300 ml # Bowel Movements 0 Result Diagram: 03/09/17 0649 03/09/17 0649 Objective Remarks GENERAL: NAD, A&Ox3 HEAD: Normocephalic. NECK: Supple, trachea midline. No lymphadenopathy. EYES: No scleral icterus. No injection or drainage. CARDIOVASCULAR: Regular rate and rhythm without murmurs, gallops, or rubs. RESPIRATORY: Breath sounds equal bilaterally. No accessory muscle use. GASTROINTESTINAL: Abdomen soft, non-tender, nondistended. MUSCULOSKELETAL: No cyanosis, or edema. SKIN: Warm and dry. NEURO: No focal neurological deficitis. A/P Problem List: (1) EVANGELISTA (acute kidney injury) ICD Code: N17.9 - Acute kidney failure, unspecified (2) Renal stone ICD Code: N20.0 - Calculus of kidney (3) Intractable back pain ICD Code: M54.9 - Dorsalgia, unspecified (4) Hypokalemia ICD Code: E87.6 - Hypokalemia Assessment and Plan Assessment and Plan 81-year-old male admitted secondary to hypokalemia and back pain Severe Hypokalemia Worsened compared to time of admit Replacement provided Follow potassium level closely Replace potassium as needed Telemetry Irretractable back pain Improved today Likely secondary to hypokalemia When necessary pain treatments As needed Valium Solu-Medrol Acute kidney injury Dehydration Interval improvement Follow renal function Renal ultrasound pending IV hydration Nephrolith Asymptomatic and nonobstructing Follow clinically DVT prophylaxis Jarret Manley MD Mar 09, 2017 14:06
[2017-03-09 15:05] LABS: POTASSIUM 2.5 MEQ/L (3.5-5.1)
[2017-03-09] MEDS: levETIRAcetam INJ 500 MG in SODIUM CHLORIDE 0.9% INJ 100 ML IV SCH (18:00)
[2017-03-09] MEDS ORDERED: LORazepam 2 MG/ML VIAL IV PUSH ONE ×2 (18:15)
[2017-03-09 18:20] LABS: BICARBONATE 24.1 MEQ/L (21.0-32.0)
[2017-03-09 18:26] LABS: POTASSIUM 2.5 MEQ/L (3.5-5.1)
--- NOTE | 2017-03-09 18:42 | PD.CONS ---
HPI Service Critical Care Medicine Consult Requested By Primary Care Physician No Primary Care Physician History of Present Illness 81-year-old male with a history of Prostate cancer, history of CVA, hypertension , Renal Stones and Sleep Apnea who was admitted secondary to complaints of severe back pain. The patient denies recent injury/trauma. No fever, chills, weakness or incontinence. Seen at [facility] for similar complaints on 03/08/17, he completed CT Abd/Pelvis with finding of nonobstructing right renal calculous without hydronephrosis, large partially calcified gallstone and no evidence of cholecystitis and lumbar spondylosis w/ multilevel disk disease worse at L5-S1 w/ severe leftward neural foraminal narrowing. Was Rx Baclofen and d/c'd home. States pain became unbearable tonight. No h/o similar symptoms. Reports back pain bilateral flank, no radicular pain. On arrival, BP 156/67, HR 57, O2 sat 100% on RA, Afebrile. WBC 12.9. K+ 2.8, creatinine 3.03, previously 1.35 on 01/06/13. UA negative. CT Abd/Pelvis w/ 3cm calcified gallstone, 2.5cm low density lesion left lobe liver, recommendation for outpatient MRI, non-obstructing right renal calculi, multi-level spinal stenosis. S/p Morphine/Zofran in ER w/ minimal improvement in pain complaints. Patient sent to the Critical Care unit this afternoon secondary to seizure vs. seizure-like activity. Recurrent episodes of bilateral full body shakes/tremors. Patient is not loosing consciousness during these episodes, but can not voluntarily stop shaking. Review of Systems Constitutional: DENIES: Diaphoretic episodes, Fatigue, Fever, Weight gain, Weight loss, Chills, Dizziness, Change in appetite, Night Sweats Endocrine: DENIES: Heat/cold intolerance, Polydipsia, Polyuria, Polyphagia Eyes: DENIES: Blurred vision, Diplopia, Eye inflammation, Eye pain, Vision loss , Photosensitivity, Double Vision Ears, nose, mouth, throat: DENIES: Tinnitus, Hearing loss, Vertigo, Nasal discharge, Oral lesions, Throat pain, Hoarseness, Ear Pain, Running Nose, Epistaxis, Sinus Pain, Toothache, Odynophagia Respiratory: DENIES: Apneas, Cough, Snoring, Wheezing, Hemoptysis, Sputum production, Shortness of breath Cardiovascular: DENIES: Chest pain, Palpitations, Syncope, Dyspnea on Exertion , PND, Lower Extremity Edema, Orthopnea, Claudication Gastrointestinal: DENIES: Abdominal pain, Black stools, Bloody stools, Constipation, Diarrhea, Nausea, Vomiting, Difficulty Swallowing, Anorexia Genitourinary: DENIES: Sexual dysfunction, Urinary frequency, Urinary incontinence, Urgency, Hematuria, Dysuria, Nocturia, Penile Discharge, Testicular Pain, Testicular Swelling Musculoskeletal: DENIES: Joint pain, Muscle aches, Stiffness, Joint Swelling, Back pain, Neck pain Integumentary: DENIES: Abnormal pigmentation, Nail changes, Pruritus, Rash Hematologic/lymphatic: DENIES: Bruising, Lymphadenopathy Immunologic/allergic: DENIES: Eczema, Urticaria Neurologic: DENIES: Abnormal gait, Headache, Localized weakness, Paresthesias, Seizures, Speech Problems, Tremor, Poor Balance Psychiatric: DENIES: Anxiety, Confusion, Mood changes, Depression, Hallucinations, Agitation, Suicidal Ideation, Homicidal Ideation, Delusions Past Family Social History Allergies: Coded Allergies: diclofenac (Unverified Allergy, Severe, Edema, 03/08/17) povidone-iodine (Verified Allergy, Severe, 03/08/17) soap (Verified Allergy, Severe, 03/08/17) hydromorphone (Verified Allergy, Unknown, 03/09/17) Past Medical History Prostate cancer History of CVA Hypertension Sleep apnea Renal stones Past Surgical History Cataract Surgery Radical Prostatectomy Brain Surgery Reported Medications Reported Meds & Active Scripts Active Reported Allopurinol 100 Mg Tab 100 Mg PO DAILY Isosorbide Mononitrate ER (Isosorbide Mononitrate) 60 Mg Tab 60 Mg PO DAILY Levothyroxine (Levothyroxine Sodium) 75 Mcg Tab 75 Mcg PO DAILY Atorvastatin (Atorvastatin Calcium) 80 Mg Tab 80 Mg PO HS Pilocarpine Opth 4% (Pilocarpine HCl) 4 % Soln 1 Drop EACH EYE BID Dorzolamide Opth Drops (Dorzolamide HCl) 2% Soln 1 Drop EACH EYE TID Omeprazole 20 Mg Tab 20 Mg PO DAILY Donepezil 5 Mg Tab 5 Mg PO HS Gabapentin 100 Mg Cap 100 Mg PO BID Baclofen 10 Mg Tab 10 Mg PO TID Furosemide 40 Mg Tab 40 Mg PO BID TAKE 40 MG AM AND 20 MG PM Carvedilol 3.125 Mg Tab 3.125 Mg PO BID Plavix (Clopidogrel Bisulfate) 75 Mg Tab 75 Mg PO DAILY Aspirin EC (Aspirin) 81 Mg Tabdr 81 Mg PO DAILY Effer-K (Potassium Bicarbonate) 25 Meq Tab 1 Tab PO BID TAKE FOR 5 DAYS STARTING 03/02/17 Sertraline (Sertraline HCl) 100 Mg Tab 100 Mg PO DAILY Active Ordered Medications Current Medications Medications (Trade) Dose Ordered Sig/Severino Route PRN Reason Start Time Stop Time Status Last Admin Dose Admin Sodium Chloride (NS Flush) 2 ml UNSCH PRN IV FLUSH FLUSH AFTER USING IV ACCESS 03/08/17 19:45 03/08/17 21:37 Sodium Chloride 1,000 ml @ 100 mls/hr Q10H IV 03/08/17 22:32 03/09/17 08:32 Sodium Chloride (NS Flush) 2 ml UNSCH PRN IV FLUSH FLUSH AFTER USING IV ACCESS 03/08/17 22:45 Sodium Chloride (NS Flush) 2 ml BID IV FLUSH 03/09/17 09:00 Ondansetron HCl (Zofran Inj) 4 mg Q6H PRN IVP NAUSEA OR VOMITING 03/08/17 22:45 Acetaminophen (Tylenol) 650 mg Q6H PRN PO FEVER/PAIN SCALE 1 TO 2 03/08/17 22:45 Acetaminophen/ Hydrocodone Bitart ([place] 5-325 Mg) 1 tab Q4H PRN PO PAIN SCALE 3 TO 5 03/08/17 22:45 03/09/17 09:50 Senna/Docusate Sodium (Jojo-Colace) 1 tab BID PO 03/09/17 09:00 03/09/17 09:00 Magnesium Hydroxide (Milk Of Magnesia Liq) 30 ml Q12H PRN PO MILD - MODERATE CONSTIPATION 03/08/17 22:45 Sennosides (Senokot) 17.2 mg Q12H PRN PO MODERATE - SEVERE CONSTIPATION 03/08/17 22:45 Bisacodyl (Dulcolax Supp) 10 mg DAILY PRN RECTAL SEVERE CONSITIPATION 03/08/17 22:45 Lactulose (Lactulose Liq) 30 ml DAILY PRN PO SEVERE CONSITIPATION 03/08/17 22:45 Baclofen (Lioresal) 10 mg TID PO 03/09/17 09:00 03/09/17 18:00 Carvedilol (Coreg) 3.125 mg BID PO 03/09/17 09:00 03/09/17 09:50 Donepezil HCl (Aricept) 5 mg HS PO 03/09/17 21:00 Sertraline HCl (Zoloft) 100 mg DAILY PO 03/09/17 09:00 03/09/17 09:50 Morphine Sulfate (Morphine Inj) 2 mg Q3H PRN IV PUSH PAIN 6-10 03/08/17 23:15 03/08/17 23:44 Diazepam (Valium) 10 mg Q8H PRN PO MUSCLE SPASM 03/08/17 23:15 03/09/17 01:02 Heparin Sodium (Porcine) (Heparin Inj) 5,000 units Q12HR SQ 03/09/17 09:00 03/09/17 09:50 Atorvastatin Calcium (Lipitor) 80 mg HS PO 03/09/17 21:00 Dorzolamide HCl (Trusopt 2% Opth Soln) 1 drop TID EACH EYE 03/09/17 09:00 03/09/17 09:50 Pilocarpine HCl (Pilocar 4% Opth Soln) 1 drop BID EACH EYE 03/09/17 09:00 03/09/17 09:51 Levetriacetam 500 mg/Sodium Chloride 105 ml @ 420 mls/hr Q12H IV 03/09/17 18:00 03/09/17 18:00 Family History No family history of early coronary artery disease or malignancy Social History Negative for tobacco or alcohol or illicit drug abuse Physical Exam Vital Signs Vital Signs Date Time Temp Pulse Resp B/P (MAP) Pulse Ox O2 Delivery O2 Flow Rate FiO2 03/09/17 15:50 95.2 50 17 122/58 (79) 100 03/09/17 11:48 95.4 50 18 114/56 (75) 100 03/09/17 07:15 95.3 52 18 120/59 (79) 100 03/09/17 04:15 97.0 58 17 116/56 (76) 98 03/09/17 00:50 100 Nasal Cannula 2.00 03/09/17 00:39 96.9 52 17 130/62 (84) 100 03/09/17 00:04 16 03/09/17 00:02 98.1 49 16 140/64 (89) 98 Nasal Cannula 2.00 03/08/17 20:10 98 Room Air 03/08/17 19:39 91 18 03/08/17 19:35 98.3 57 18 156/67 (96) 100 Laboratory Laboratory Tests Test 03/08/17 19:52 03/09/17 06:49 03/09/17 14:16 03/09/17 17:38 White Blood Count 12.9 10.7 Red Blood Count 4.10 4.16 Hemoglobin 12.5 12.8 Hematocrit 35.9 36.9 Mean Corpuscular Volume 87.4 88.7 Mean Corpuscular Hemoglobin 30.4 30.7 Mean Corpuscular Hemoglobin Concent 34.8 34.6 Red Cell Distribution Width 14.5 14.2 Platelet Count 208 174 Mean Platelet Volume 7.8 7.6 Neutrophils (%) (Auto) 77.1 94.5 Lymphocytes (%) (Auto) 13.3 4.2 Monocytes (%) (Auto) 8.0 1.2 Eosinophils (%) (Auto) 1.1 0.1 Basophils (%) (Auto) 0.5 0.0 Neutrophils # (Auto) 10.0 10.1 Lymphocytes # (Auto) 1.7 0.5 Monocytes # (Auto) 1.0 0.1 Eosinophils # (Auto) 0.1 0.0 Basophils # (Auto) 0.1 0.0 CBC Comment DIFF FINAL DIFF FINAL Differential Comment Urine Color YELLOW Urine Turbidity HAZY Urine pH 5.5 Urine Specific [place] 1.019 Urine Protein 30 Urine Glucose (UA) NEG Urine Ketones NEG Urine Occult Blood TRACE Urine Nitrite NEG Urine Bilirubin NEG Urine Urobilinogen 2.0 Urine Leukocyte Esterase NEG Urine RBC 1 Urine WBC 6 Urine Squamous Epithelial Cells 1 Urine Hyaline Casts 19 Urine Mucus FEW Microscopic Urinalysis Comment CULT NOT INDICATED Blood Urea Nitrogen 69 62 59 Creatinine 3.03 2.39 2.19 Random Glucose 153 209 207 Total Protein 8.5 7.4 Albumin 3.0 2.6 Calcium Level 8.4 8.1 8.0 Alkaline Phosphatase 83 83 Aspartate Amino Transf (AST/SGOT) 73 53 Alanine Aminotransferase (ALT/SGPT) 31 31 Total Bilirubin 1.0 0.6 Sodium Level 132 134 136 Potassium Level 2.8 2.0 2.5 2.5 Chloride Level 89 94 98 Carbon Dioxide Level 28.3 29.4 24.1 Anion Gap 15 11 14 Estimat Glomerular Filtration Rate 20 26 29 Lipase 167 Magnesium Level 2.0 Result Diagram: 03/09/17 0649 03/09/17 1738 Assessment and Plan Assessment and Plan Seizure/pseudoseizure/tremor - Keppra - EEG pending - Management per neurology Hypokalemia - IV and by mouth replacement - Monitor trend Irretractable back pain - Improving - Pain management when necessary Acute kidney injury - Due to Dehydration - Strict I's and O - Monitor trend of creatinine - Electrolytes - IV hydration DVT GI prophylaxis - Teds SCDs, subcutaneous heparin, early aggressive mobilizations - Pepcid Critical Care: The total critical care time was 35 minutes. Time to perform other separately billable procedures was not included in the critical care time. Az Watson MD Mar 09, 2017 18:42
[2017-03-09] MEDS ORDERED: POTASSIUM CHLORIDE 20 MEQ CONTROLLED RELEASE TAB PO ONE (19:00)
[2017-03-09] MEDS: DONEPEZIL HCL 5 MG TAB PO SCH (22:57)
[2017-03-09] MEDS: ATORVASTATIN 80 MG TAB PO SCH (22:57)
[2017-03-09] MEDS ORDERED: CHLORHEXIDINE GLUCONATE 2 % 1 PACK (2 CLOTHS)(extra cloths) TOPICAL PRN (23:45)
[2017-03-10] VITALS (8 sets, daily range): BP systolic 113–158; BP diastolic 56–96; PULSE 48–92; RESP 15–22; TEMP 97.5–98.3; O2SAT 93–100
[2017-03-10] MEDS: CHLORHEXIDINE GLUCONATE 2 % 1 PACK (2 CLOTHS)(taper/protocol) TOPICAL SCH (04:00)
[2017-03-10] MEDS: SODIUM CHLOR 0.9% 1000 ML INJ 1,000 ML IV SCH ×2 (04:32→09:01)
[2017-03-10] MEDS: levETIRAcetam INJ 500 MG in SODIUM CHLORIDE 0.9% INJ 100 ML IV SCH ×2 (05:30→16:34)
--- NOTE | 2017-03-10 08:43 | PD.CONS ---
History of Present Illness Service Neurology Consult Requested By [facility] Reason for Consult shaking Primary Care Physician No Primary Care Physician History of Present Illness 81-year-old male admitted secondary to complaints of severe back pain. The patient denies recent injury/trauma. No fever, chills, weakness or incontinence. S/p Morphine/Zofran in ER w/ minimal improvement in pain complaints. Recurrent episodes of bilateral full body shakes/tremors without loc, tx'd to icu. noted to have severe hypokalemia and worsening renal failure. pt poor hx; obtained from medical chart. denies any hx of sz. denies current villalta. Review of Systems limited 2/2 pt's mental status Past Family Social History Allergies: Coded Allergies: diclofenac (Unverified Allergy, Severe, Edema, 03/08/17) povidone-iodine (Verified Allergy, Severe, 03/08/17) soap (Verified Allergy, Severe, 03/08/17) hydromorphone (Verified Allergy, Unknown, 03/09/17) Past Medical History Prostate cancer History of CVA Hypertension Sleep apnea Renal stones Past Surgical History Cataract Surgery Radical Prostatectomy Brain Surgery Reported Medications Reported Allopurinol 100 Mg Tab 100 Mg PO DAILY Isosorbide Mononitrate ER (Isosorbide Mononitrate) 60 Mg Tab 60 Mg PO DAILY Levothyroxine (Levothyroxine Sodium) 75 Mcg Tab 75 Mcg PO DAILY Atorvastatin (Atorvastatin Calcium) 80 Mg Tab 80 Mg PO HS Pilocarpine Opth 4% (Pilocarpine HCl) 4 % Soln 1 Drop EACH EYE BID Dorzolamide Opth Drops (Dorzolamide HCl) 2% Soln 1 Drop EACH EYE TID Omeprazole 20 Mg Tab 20 Mg PO DAILY Donepezil 5 Mg Tab 5 Mg PO HS Gabapentin 100 Mg Cap 100 Mg PO BID Baclofen 10 Mg Tab 10 Mg PO TID Furosemide 40 Mg Tab 40 Mg PO BID TAKE 40 MG AM AND 20 MG PM Carvedilol 3.125 Mg Tab 3.125 Mg PO BID Plavix (Clopidogrel Bisulfate) 75 Mg Tab 75 Mg PO DAILY Aspirin EC (Aspirin) 81 Mg Tabdr 81 Mg PO DAILY Effer-K (Potassium Bicarbonate) 25 Meq Tab 1 Tab PO BID TAKE FOR 5 DAYS STARTING 03/02/17 Sertraline (Sertraline HCl) 100 Mg Tab 100 Mg PO DAILY Family History n/c Social History Negative for tobacco or alcohol or illicit drug abuse Review of Systems All other ROS: ROS reviewed as documented in chart Past Family Social History Allergies: Coded Allergies: diclofenac (Unverified Allergy, Severe, Edema, 03/08/17) povidone-iodine (Verified Allergy, Severe, 03/08/17) soap (Verified Allergy, Severe, 03/08/17) hydromorphone (Verified Allergy, Unknown, 03/09/17) Active Ordered Medications Current Medications Medications (Trade) Dose Ordered Sig/Severino Route Start Time Stop Time Status Last Admin (NS Flush) 2 ml UNSCH PRN IV FLUSH 03/08/17 19:45 03/08/17 21:37 Sodium Chloride 1,000 ml @ 100 mls/hr Q10H IV 03/08/17 22:32 03/10/17 04:32 (NS Flush) 2 ml UNSCH PRN IV FLUSH 03/08/17 22:45 (NS Flush) 2 ml BID IV FLUSH 03/09/17 09:00 03/09/17 21:00 (Zofran Inj) 4 mg Q6H PRN IVP 03/08/17 22:45 (Tylenol) 650 mg Q6H PRN PO 03/08/17 22:45 ([place] 5-325 Mg) 1 tab Q4H PRN PO 03/08/17 22:45 03/09/17 22:57 (Jojo-Colace) 1 tab BID PO 03/09/17 09:00 03/09/17 22:57 (Milk Of Magnesia Liq) 30 ml Q12H PRN PO 03/08/17 22:45 (Senokot) 17.2 mg Q12H PRN PO 03/08/17 22:45 (Dulcolax Supp) 10 mg DAILY PRN RECTAL 03/08/17 22:45 (Lactulose Liq) 30 ml DAILY PRN PO 03/08/17 22:45 (Lioresal) 10 mg TID PO 03/09/17 09:00 03/09/17 18:00 (Coreg) 3.125 mg BID PO 03/09/17 09:00 03/09/17 22:57 (Aricept) 5 mg HS PO 03/09/17 21:00 03/09/17 22:57 (Zoloft) 100 mg DAILY PO 03/09/17 09:00 03/09/17 09:50 (Morphine Inj) 2 mg Q3H PRN IV PUSH 03/08/17 23:15 03/08/17 23:44 (Valium) 10 mg Q8H PRN PO 03/08/17 23:15 03/09/17 01:02 (Heparin Inj) 5,000 units Q12HR SQ 03/09/17 09:00 03/09/17 22:57 (Lipitor) 80 mg HS PO 03/09/17 21:00 03/09/17 22:57 (Trusopt 2% Opth Soln) 1 drop TID EACH EYE 03/09/17 09:00 03/09/17 09:50 (Pilocar 4% Opth Soln) 1 drop BID EACH EYE 03/09/17 09:00 03/09/17 22:58 Levetriacetam 500 mg/Sodium Chloride 105 ml @ 420 mls/hr Q12H IV 03/09/17 18:00 03/10/17 05:30 Miscellaneous Information Patient in critical care unit? Ass... [id number] .XX 03/09/17 23:45 (Chlorhexidine 2% Cloth) 3 pack DAILY@04 TOPICAL 03/10/17 04:00 03/14/17 04:01 03/10/17 04:00 (Chlorhexidine 2% Cloth) 3 pack UNSCH PRN TOPICAL 03/09/17 23:45 03/14/17 23:44 Exam I&O / VS Vital Signs Date Time Temp Pulse Resp B/P (MAP) Pulse Ox O2 Delivery O2 Flow Rate FiO2 03/10/17 08:00 48 03/10/17 08:00 97.9 48 20 134/96 (109) 99 03/10/17 08:00 99 Nasal Cannula 4.00 03/10/17 04:00 99 Nasal Cannula 4.00 03/10/17 04:00 92 03/10/17 04:00 98.2 79 22 113/58 (76) 100 03/10/17 00:00 71 03/10/17 00:00 99 Nasal Cannula 4.00 03/10/17 00:00 98.1 50 22 119/56 (77) 99 03/09/17 20:00 98.7 50 20 131/59 (83) 99 03/09/17 20:00 97 Nasal Cannula 4.00 03/09/17 20:00 50 03/09/17 19:33 100 Nasal Cannula 4.00 03/09/17 18:00 97.7 50 18 113/56 (75) 100 03/09/17 18:00 100 Nasal Cannula 4.00 03/09/17 18:00 50 03/09/17 15:50 95.2 50 17 122/58 (79) 100 03/09/17 14:57 53 03/09/17 11:48 95.4 50 18 114/56 (75) 100 Exam Comments drowsy, ox 1-2, not to exact place or date. follows intermittently drifts back to sleep and inattentive, eomi, able to name objects, resists pupillary exam, che to gravity + asterixis in daisha ue, withdraws to pin, cerebellar/gait testing limited 2/2 drowsy state Review/Management Diagnosis/Plan: (1) Acute encephalopathy ICD Codes: G93.40 - Encephalopathy, unspecified Status: Acute Plan: confusion and myoclonus etiology: uremia, hypokalemia vs serotonin syndrome recs reduce baclofen replace K eeg benzo prn severe tremors d/c zofran for now follow exam (2) Dementia ICD Codes: F03.90 - Unspecified dementia without behavioral disturbance Status: Chronic Plan: ? mci/dementia on aricept also on aspirin/plavix (3) Acute renal failure ICD Codes: N17.9 - Acute kidney failure, unspecified Status: Acute (4) Dehydration ICD Codes: E86.0 - Dehydration Status: Acute (5) Renal stone ICD Codes: N20.0 - Calculus of kidney Problem Qualifiers (1) Acute renal failure: Qualified Codes: N17.9 - Acute kidney failure, unspecified Javed Carr MD Mar 10, 2017 08:43
[2017-03-10] MEDS: HEPARIN SODIUM - SQ 10,000 UNITS/ML VIAL SQ SCH ×2 (08:48→21:54)
[2017-03-10] MEDS: DOCUSATE SODIUM 50 MG/SENNA 8.6 MG TAB PO SCH ×2 (08:48→21:00)
[2017-03-10] MEDS: SERTRALINE HCL 100 MG TAB PO SCH (08:48)
[2017-03-10] MEDS: DORZOLAMIDE 2% OPTH SOLN 200 DROP/10 ML BTLO EACH EYE SCH ×3 (08:49→16:36)
[2017-03-10] MEDS: CARVEDILOL 3.125 MG TAB PO SCH ×2 (08:49→21:56)
[2017-03-10] MEDS: SODIUM CHLORIDE 0.9% FLUSH 10 ML FLUSH IV FLUSH SCH ×2 (08:49→21:00)
[2017-03-10] MEDS: PILOCARPINE HCL 4% EACH EYE SCH ×2 (08:49→21:58)
[2017-03-10] MEDS: BACLOFEN 10 MG TAB PO SCH ×3 (08:59→16:34)
[2017-03-10] MEDS ORDERED: PILL SPLITTER OTHER PRN (09:00)
[2017-03-10 10:14] LABS: ALKALINE PHOSPHATASE 74 U/L (45-117); ALT (GPT) 28 U/L (12-78); ANION GAP 7 MEQ/L (5-15); AST (GOT) 46 U/L (15-37); BICARBONATE 30.9 MEQ/L (21.0-32.0); BLOOD UREA NITROGEN 48 MG/DL (7-18); CHLORIDE 106 MEQ/L (98-107); GLOMERULAR FILTRATION RATE 47 ML/MIN (>89); MAGNESIUM 2.1 MG/DL (1.5-2.5); SODIUM (NA) 144 MEQ/L (136-145); TOTAL BILIRUBIN ADULT 0.3 MG/DL (0.2-1.0)
[2017-03-10 10:21] LABS: POTASSIUM 2.4 MEQ/L (3.5-5.1)
[2017-03-10] MEDS ORDERED: POTASSIUM CHLORIDE 20 MEQ CONTROLLED RELEASE TAB PO ONE (11:00)
[2017-03-10 11:18] LABS: AUTOMATED NEUTROPHIL # 14.6 TH/MM3 (1.8-7.7); BASOPHIL % 0.3 % (0.0-2.0); EOSINOPHIL % 0.1 % (0.0-4.0); HEMATOCRIT 34.1 % (39.0-51.0); HEMO FLAGS DIFF FINAL; LYMPH % 4.6 % (9.0-44.0); LYMPHOCYTE # 0.7 TH/MM3 (1.0-4.8); MEAN CELL VOLUME 89.1 FL (80.0-100.0); MEAN CORPUSCULAR HEMOGLOBIN 29.8 PG (27.0-34.0); MEAN CORPUSCULAR HGB CONC 33.4 % (32.0-36.0); MONO % 4.9 % (0.0-8.0); NEUT % 90.1 % (16.0-70.0); PLATELET COUNT 195 TH/MM3 (150-450); RED BLOOD COUNT 3.83 MIL/MM3 (4.50-5.90); RED CELL DISTRIBUTION WIDTH 14.4 % (11.6-17.2); WHITE BLOOD COUNT 16.2 TH/MM3 (4.0-11.0)
--- NOTE | 2017-03-10 12:29 | HHI.CCPN ---
Subjective Remarks/Hospital Course 81-year-old male with a history of Prostate cancer, history of CVA, hypertension , Renal Stones and Sleep Apnea who was admitted secondary to complaints of severe back pain. The patient denies recent injury/trauma. No fever, chills, weakness or incontinence. Seen at [facility] for similar complaints on 03/08/17, he completed CT Abd/Pelvis with finding of nonobstructing right renal calculous without hydronephrosis, large partially calcified gallstone and no evidence of cholecystitis and lumbar spondylosis w/ multilevel disk disease worse at L5-S1 w/ severe leftward neural foraminal narrowing. Was Rx Baclofen and d/c'd home. States pain became unbearable tonight. No h/o similar symptoms. Reports back pain bilateral flank, no radicular pain. On arrival, BP 156/67, HR 57, O2 sat 100% on RA, Afebrile. WBC 12.9. K+ 2.8, creatinine 3.03, previously 1.35 on 01/06/13. UA negative. CT Abd/Pelvis w/ 3cm calcified gallstone, 2.5cm low density lesion left lobe liver, recommendation for outpatient MRI, non-obstructing right renal calculi, multi-level spinal stenosis. S/p Morphine/Zofran in ER w/ minimal improvement in pain complaints. Patient sent to the Critical Care unit this afternoon secondary to seizure vs. seizure-like activity. Recurrent episodes of bilateral full body shakes/tremors. Patient is not loosing consciousness during these episodes, but can not voluntarily stop shaking. Subjective 03/10: Awake and oriented to person only. Intermittent episodes of tremulousness possibly pain related. Patient does have his consciousness. Agree with neurology medication versus electrolyte related. Potassium currently been replaced. Objective Vital Signs Date Time Temp Pulse Resp B/P (MAP) Pulse Ox O2 Delivery O2 Flow Rate FiO2 03/10/17 08:00 48 03/10/17 08:00 97.9 20 134/96 (109) 99 03/10/17 08:00 Nasal Cannula 4.00 Intake and Output 03/10/17 03/10/17 03/11/17 08:00 16:00 00:00 Intake Total 1000 ml Balance 1000 ml Result Diagram: 03/10/17 1040 03/10/17 0925 Imaging Last Impressions Abdomen/Pelvis CT 03/08/17 1941 Signed Impressions: Service Date/Time: Wednesday, March 08, 2017 22:08 - CONCLUSION: 1. 3 cm calcified gallstone. 2. 2.5 cm low density lesion within the left lobe of the liver near the dome which is indeterminate on this unenhanced examination. MRI of the abdomen with contrast as an outpatient could be performed for further evaluation of this finding if clinically indicated. 3. Uncomplicated sigmoid diverticulosis. 4. Calcified non-obstructing right renal calculi with the larger of the two measuring 3 mm. 5. 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 Jason Spencer MD Renal Ultrasound 03/08/17 0000 Signed Impressions: Service Date/Time: Wednesday, March 08, 2017 22:47 - CONCLUSION: 1. Right kidney is slightly smaller than the left but otherwise no significant abnormality is identified. There is no hydronephrosis. 2. There is a single stone within the gallbladder. Juanito Le MD Objective Remarks GENERAL: SKIN: Warm and dry. HEAD: Atraumatic. Normocephalic. EYES: Pupils equal and round. No scleral icterus. No injection or drainage. ENT: No nasal bleeding or discharge. Mucous membranes pink and moist. NECK: Trachea midline. No JVD. CARDIOVASCULAR: Regular rate and rhythm. RESPIRATORY: No accessory muscle use. Clear to auscultation. Breath sounds equal bilaterally. GASTROINTESTINAL: Abdomen soft, non-tender, nondistended. Hepatic and splenic margins not palpable. MUSCULOSKELETAL: Extremities without clubbing, cyanosis, or edema. No obvious deformities. NEUROLOGICAL: Awake and alert. No obvious cranial nerve deficits. Motor grossly within normal limits. Five out of 5 muscle strength in the arms and legs. Normal speech. PSYCHIATRIC: Appropriate mood and affect; insight and judgment normal. A/P Assessment and Plan Neuro/Psych: 2010 History of subdural hematoma Dementia disorder NOS Tremors - medication induced morphine/Zofran rule out serotonin syndrome Right eye cataract - Keppra 500 mg IV twice a day/as needed benzodiazepine - EEG results pending. No obvious epileptiform activity. Awake official read - Management per neurology Continue pilocarpine and dorzolamide 2% eye drops Currently Flexeril 5 mg 3 times a day. Continue for now. As needed morphine for pain management Continues Zoloft 100 mg by mouth daily Continue Aricept 5 mg daily CV: Coronary disease status post stents Hypertension Dyslipidemia Chronic systolic heart failure ejection fraction 40-45% Moderate TR Pulmonary hypertension Continue Plavix 75 mg by mouth daily as indicated Continue Lipitor 80 mg by mouth daily Continue Coreg 3.2 mg by mouth twice a day Resp: ARMAND Nasal cannula to maintain saturations greater than equal to 90% Incentive spirometry while awake CPAP at night GI: Cholelithiasis Sigmoid diverticulosis : Nelson catheter if indicated Endo: Hypothyroidism Continue Levoxyl 75 mg by mouth daily Renal: Right renal calculus Acute kidney injury Creatinine 3.0 admission. Currently 1.4. Continue gentle hydration Heme: History of prostate cancer Currently stable. ID: Monitor for infection FEN: Hypokalemia Persistent hypokalemia. Check urine pH, electrolyte. Possible RTA? Nephrology consultation MSK: Spinal stenosis PT evaluate and treat Access - Utilize peripheral IV. Central line if indicated Prophylaxis - GI - famotidine - DVT - heparin subcutaneous Level II follow-up Dave Elizabeth MD Mar 10, 2017 12:29
[2017-03-10 14:23] LABS: BLOOD GAS CARBOXYHEMOGLOBIN 1.5 % (0-4); BLOOD GAS HCO3 27 mmol/L (22-26); BLOOD GAS METHEMOGLOBIN 1.1 % (0-2); BLOOD GAS O2 HGB SATURATION 96 % (90-100); BLOOD GAS OXYGEN CONTENT 17.5 Vol % (12.0-20.0); BLOOD GAS PCO2 50 mmHg (38-42); BLOOD GAS PO2 116 mmHg (61-120); BLOOD GAS TOTAL HGB 12.9 G/DL (12.0-16.0); TEMP CORR TO 98.6
[2017-03-10 14:24] LABS: CRITICAL VALUE NO; LITER FLOW 2 L/M; OXYGEN DEVICE NASAL CANNULA
[2017-03-10 14:25] LABS: DRAW SITE RT RADIAL; NUMBER OF ARTERIAL PUNCTURES 1; STAT NO; ULNAR PULSE PRESENT
--- NOTE | 2017-03-10 15:14 | EKG ---
Date Performed: 03/09/2017 Time Performed: 17:15:03 PTAGE: 81 years EKG: Sinus bradycardia, possibly with a wandering atrial pacemaker SEPTAL MYOCARDIAL INFARCTION , OF INDETERMINATE AGE Poor quality tracing that should be repeated ABNORMAL ECG PREVIOUS TRACING : 01/03/2013 03.54 Since the prior tracing, the patient has continued evolutio n of the anterior wall myocardial infarction but now appears old. The minimal lateral T-wave changes are new. The heart rate has slowed. Clinical correlation advised. DOCTOR: Allie Espinosa Interpretating Date/Time 03/10/2017 15:13:22
--- NOTE | 2017-03-10 16:28 | PD.WCN.NOT ---
Wound Consult Description: Received consult for pressure ulcer to coccyx ordered by Doctor Elizabeth Communicated with: CHINA Angeles RN [facility] and Doctor Elizabeth Recommendation: Please cleanse buttock, sacral and coccyx areas with soap and water, pat dry, and apply Calazime barrier cream BID and PRN. Please obtain [place] [employer] bed or if not available place order for K 4 rental bed from [facility]. Continue to turn and reposition patient every 2 hours and PRN for comfort Additional Information: Patient seen on 5th floor IMC for evaluation of possible pressure injury to coccyx. Patient turned to L side with moderate assistance of insurance underwriter and CHINA Whitaker [facility] . Patient does complain of pain with turning. Light purple Non blanchable area of of intact skin is noted to sacrococcygeal area and bilateral buttocks measured as one, indicating deep tissue injury. Area measures ~8 cm x ~7 cm. Small area of partial thickness skin loss is noted in center of Deep tissue injury.CHINA whitaker applied moisture barrier cream. Patient is laying on regular [facility] and being repositioned every 2 hours with pillows. CHINA whitaker to apply thick layer of calazime barrier cream when available Cassidy Drew [facility] Mar 10, 2017 16:28
[2017-03-10] MEDS ORDERED: POTASSIUM CHLORIDE 10 MEQ CONTROLLED RELEASE TAB PO ONE (17:00)
--- NOTE | 2017-03-10 17:12 | PD.CONS ---
[facility] Service Nephrology. Consult Requested By Reason for Consult EVANGELISTA and hypokalemia. Primary Care Physician No Primary Care Physician History of Present Illness patient was seen and examined in the ER. He apparently went to [facility] for back pain. CT abdomen/pelvis was obtained, he was discharged on Baclofen. He later came to this facility with similar complaints. He was noted to be in renal failure with creatinine of 3.03 and serum potassium of 2. Patient is on Lasix 40 mg PO BID at home. Blood gas analysis suggests presence of respiratory acidosis with secondary metabolic compensation. If the respiratory acidosis is acute, he may have some degree of metabolic alkalosis. If the respiratory acidosis is chronic, the compensation may be appropriate. Patient has developed frequent tremors of the extremities that appear to be involuntary. He also has become confused. He has been seen by neurology, placed on Kera. Review of Systems ROS Limitations: Altered Mental Status Past Family Social History Allergies: Coded Allergies: diclofenac (Unverified Allergy, Severe, Edema, 03/08/17) povidone-iodine (Verified Allergy, Severe, 03/08/17) soap (Verified Allergy, Severe, 03/08/17) hydromorphone (Verified Allergy, Unknown, 03/09/17) Past Medical History Prostate cancer History of CVA Hypertension Sleep apnea Renal stones Past Surgical History Cataract Surgery Radical Prostatectomy Brain Surgery Reported Medications Allopurinol 100 Mg Tab 100 Mg PO DAILY Isosorbide Mononitrate ER (Isosorbide Mononitrate) 60 Mg Tab 60 Mg PO DAILY Levothyroxine (Levothyroxine Sodium) 75 Mcg Tab 75 Mcg PO DAILY Atorvastatin (Atorvastatin Calcium) 80 Mg Tab 80 Mg PO HS Pilocarpine Opth 4% (Pilocarpine HCl) 4 % Soln 1 Drop EACH EYE BID Dorzolamide Opth Drops (Dorzolamide HCl) 2% Soln 1 Drop EACH EYE TID Omeprazole 20 Mg Tab 20 Mg PO DAILY Donepezil 5 Mg Tab 5 Mg PO HS Gabapentin 100 Mg Cap 100 Mg PO BID Baclofen 10 Mg Tab 10 Mg PO TID Furosemide 40 Mg Tab 40 Mg PO BID TAKE 40 MG AM AND 20 MG PM Carvedilol 3.125 Mg Tab 3.125 Mg PO BID Plavix (Clopidogrel Bisulfate) 75 Mg Tab 75 Mg PO DAILY Aspirin EC (Aspirin) 81 Mg Tabdr 81 Mg PO DAILY Effer-K (Potassium Bicarbonate) 25 Meq Tab 1 Tab PO BID TAKE FOR 5 DAYS STARTING 03/02/17 Sertraline (Sertraline HCl) 100 Mg Tab 100 Mg PO DAILY Active Ordered Medications Current Medications Medications (Trade) Dose Ordered Sig/Severino Route Start Time Stop Time Status Last Admin (NS Flush) 2 ml UNSCH PRN IV FLUSH 03/08/17 22:45 (NS Flush) 2 ml BID IV FLUSH 03/09/17 09:00 03/10/17 08:49 (Tylenol) 650 mg Q6H PRN PO 03/08/17 22:45 (Duncan 5-325 Mg) 1 tab Q4H PRN PO 03/08/17 22:45 03/09/17 22:57 (Jojo-Colace) 1 tab BID PO 03/09/17 09:00 03/10/17 08:48 (Milk Of Magnesia Liq) 30 ml Q12H PRN PO 03/08/17 22:45 (Senokot) 17.2 mg Q12H PRN PO 03/08/17 22:45 (Dulcolax Supp) 10 mg DAILY PRN RECTAL 03/08/17 22:45 (Lactulose Liq) 30 ml DAILY PRN PO 03/08/17 22:45 (Coreg) 3.125 mg BID PO 03/09/17 09:00 03/09/17 22:57 (Aricept) 5 mg HS PO 03/09/17 21:00 03/09/17 22:57 (Zoloft) 100 mg DAILY PO 03/09/17 09:00 03/10/17 08:48 (Morphine Inj) 2 mg Q3H PRN IV PUSH 03/08/17 23:15 03/08/17 23:44 (Valium) 10 mg Q8H PRN PO 03/08/17 23:15 03/09/17 01:02 (Heparin Inj) 5,000 units Q12HR SQ 03/09/17 09:00 03/10/17 08:48 (Lipitor) 80 mg HS PO 03/09/17 21:00 03/09/17 22:57 (Trusopt 2% Opth Soln) 1 drop TID EACH EYE 03/09/17 09:00 03/10/17 14:55 (Pilocar 4% Opth Soln) 1 drop BID EACH EYE 03/09/17 09:00 03/10/17 08:49 Levetriacetam 500 mg/Sodium Chloride 105 ml @ 420 mls/hr Q12H IV 03/09/17 18:00 03/10/17 05:30 Miscellaneous Information Patient in critical care unit? Ass... Q361D .XX 03/09/17 23:45 (Chlorhexidine 2% Cloth) 3 pack DAILY@04 TOPICAL 03/10/17 04:00 03/14/17 04:01 03/10/17 04:00 (Chlorhexidine 2% Cloth) 3 pack UNSCH PRN TOPICAL 03/09/17 23:45 03/14/17 23:44 (Lioresal) 5 mg TID PO 03/10/17 09:00 03/10/17 14:55 (Pill Splitter) 1 ea UNSCH PRN OTHER 03/10/17 09:00 (KCl) 100 meq ONCE ONCE PO 03/10/17 17:00 03/10/17 17:01 Family History unavailable. Social History Former smoker, no ETOH. Not a reliable historian. Physical Exam Vital Signs Vital Signs Date Time Temp Pulse Resp B/P (MAP) Pulse Ox O2 Delivery O2 Flow Rate FiO2 03/10/17 12:00 97.5 48 18 158/69 (98) 98 03/10/17 12:00 48 03/10/17 12:00 98 Nasal Cannula 4.00 03/10/17 08:00 48 03/10/17 08:00 97.9 48 20 134/96 (109) 99 03/10/17 08:00 99 Nasal Cannula 4.00 03/10/17 04:00 99 Nasal Cannula 4.00 03/10/17 04:00 92 03/10/17 04:00 98.2 79 22 113/58 (76) 100 03/10/17 00:00 71 03/10/17 00:00 99 Nasal Cannula 4.00 03/10/17 00:00 98.1 50 22 119/56 (77) 99 03/09/17 20:00 98.7 50 20 131/59 (83) 99 03/09/17 20:00 97 Nasal Cannula 4.00 03/09/17 20:00 50 03/09/17 19:33 100 Nasal Cannula 4.00 03/09/17 18:00 97.7 50 18 113/56 (75) 100 03/09/17 18:00 100 Nasal Cannula 4.00 03/09/17 18:00 50 Physical Exam GENERAL: he is confused, disoriented. Frequent tremors of the upper extremities. Patient is able to move his extremities. SKIN: Warm and dry. HEAD: Normocephalic. EYES: No scleral icterus. No injection or drainage. NECK: Supple, trachea midline. No JVD or lymphadenopathy. CARDIOVASCULAR: Regular rate and rhythm without murmurs, gallops, or rubs. RESPIRATORY: Breath sounds equal bilaterally. No accessory muscle use. GASTROINTESTINAL: Abdomen soft, non-tender, nondistended. MUSCULOSKELETAL: No cyanosis, or edema. BACK: Nontender without obvious deformity. Laboratory Laboratory Tests Test 03/09/17 17:38 03/09/17 18:15 03/10/17 09:25 03/10/17 10:40 Blood Urea Nitrogen 59 48 Creatinine 2.19 1.43 Random Glucose 207 158 Calcium Level 8.0 8.4 Sodium Level 136 144 Potassium Level 2.5 2.4 Chloride Level 98 106 Carbon Dioxide Level 24.1 30.9 Anion Gap 14 7 Estimat Glomerular Filtration Rate 29 47 Nasal Screen MRSA (PCR) MRSA NOT DETECTED Total Protein 7.0 Albumin 2.5 Phosphorus Level 2.5 Magnesium Level 2.1 Alkaline Phosphatase 74 Aspartate Amino Transf (AST/SGOT) 46 Alanine Aminotransferase (ALT/SGPT) 28 Total Bilirubin 0.3 White Blood Count 16.2 Red Blood Count 3.83 Hemoglobin 11.4 Hematocrit 34.1 Mean Corpuscular Volume 89.1 Mean Corpuscular Hemoglobin 29.8 Mean Corpuscular Hemoglobin Concent 33.4 Red Cell Distribution Width 14.4 Platelet Count 195 Mean Platelet Volume 7.8 Neutrophils (%) (Auto) 90.1 Lymphocytes (%) (Auto) 4.6 Monocytes (%) (Auto) 4.9 Eosinophils (%) (Auto) 0.1 Basophils (%) (Auto) 0.3 Neutrophils # (Auto) 14.6 Lymphocytes # (Auto) 0.7 Monocytes # (Auto) 0.8 Eosinophils # (Auto) 0.0 Basophils # (Auto) 0.0 CBC Comment DIFF FINAL Differential Comment Test 03/10/17 14:06 03/10/17 14:49 Blood Gas Puncture Site RT RADIAL Blood Gas Patient Temperature 98.6 Blood Gas HCO3 27 Blood Gas Base Excess 2.0 Blood Gas Oxygen Saturation 96 Arterial Blood pH 7.35 Arterial Blood Partial Pressure CO2 50 Arterial Blood Partial Pressure O2 116 Arterial Blood Oxygen Content 17.5 Arterial Blood Carboxyhemoglobin 1.5 Arterial Blood Methemoglobin 1.1 Blood Gas Hemoglobin 12.9 Oxygen Delivery Device NASAL CANNULA Blood Gas Liter Flow 2 Potassium Level 2.8 Result Diagram: 03/10/17 1040 03/10/17 1449 Assessment and Plan Problem List: (1) EVANGELISTA (acute kidney injury) ICD Codes: N17.9 - Acute kidney failure, unspecified Plan: likely due to pre-renal azotemia, it has improved with hydration. Avoid nephrotoxic agents. Continue IVF. Add potassium to IVF. Monitor urine output and renal function. (2) Hypokalemia ICD Codes: E87.6 - Hypokalemia Plan: patient was on Lasix at home, it is possible hypokalemia is due to renal losses due to diuretic use. However, it has persisted in spite of about 130 mEq of potassium given. Question of RTA is raised. It is unlikely as the patient does not appear to have metabolic acidosis. He may have Gitelman's or Bartter's , but these are less likely than diuretic induced hypokalemia. After improvement in renal function, it is possible that continued use of IVF resulted in increased distal potassium secretion, resulting in persistent hypokalemia. I will obtain 24 hour urine collection for potassium. Replace potassium and Magnesium. (3) Dehydration ICD Codes: E86.0 - Dehydration Status: Acute Plan: Improved. (4) Muscle spasm ICD Codes: M62.838 - Other muscle spasm Status: Acute Plan: Unclear etiology. (5) Acute encephalopathy ICD Codes: G93.40 - Encephalopathy, unspecified Status: Acute Plan: Neurology following. Etiology is unclear at this time. Assessment and Plan Thanks for the consult. I will follow. Timoteo Kelly MD Mar 10, 2017 17:12
[2017-03-10] MEDS: POTASSIUM CHLORIDE INJ 30 MEQ in SODIUM CHLOR 0.45% 1000 ML INJ 1,000 ML IV SCH (17:42)
--- NOTE | 2017-03-10 20:25 | MG ---
cc: SUSAN CHISHOLM MD Lab No: [id number] Date: 03/09/17 Age: 81 Sex: M Race: REFERRING PHYSICIAN Dr. Russo Awake, drowsy, asleep with photic stimulation. EEG 06/11/2007 was normal. An 81 year old man admitted with severe back pain anterior abdominal area radiation with seizure-like activity, shaking of the body, talking during the episode, history of stroke, head trauma, prostate cancer, hyperlipidemia. MEDICATIONS Current, Aricept Keppra Coreg Baclofen . Overall background shows quite a bit of talking and muscle artifact. EKG is artifactual. Some upper body shaking causing quite a bit of artifact but no epileptic activity. There is some mild slowing predominately at the 5 Hz - 6 Hz, theta frequency. Overall, mild slowing seen. Continues to talk throughout the recording, unfortunately, with movement artifact. At times, there seems to be a near 8 Hz alpha but then back to 5 Hz suggestive of upper body shaking again at epoch 51. No epileptic correlation. Photic stimulation - there is a mild driving response. IMPRESSION Abnormal EEG due to some mild background slowing, may be related to a mild encephalopathic process. Shaking episodes that are seen during the recording do not correlate with any epileptiform features. Clinical correlation. MD MILY Curry/ /8:06 PM /8:17 PM
[2017-03-10] MEDS: DONEPEZIL HCL 5 MG TAB PO SCH (21:54)
[2017-03-10] MEDS: DIAZEPAM 10 MG TAB PO PRN (21:55)
[2017-03-10] MEDS: ACETAMINOPHEN/HYDROcodone 325 MG/5 MG TAB PO PRN (21:55)
[2017-03-10] MEDS: ATORVASTATIN 80 MG TAB PO SCH (21:56)
[2017-03-11] VITALS (9 sets, daily range): BP systolic 144–188; BP diastolic 61–90; PULSE 55–70; RESP 16–23; TEMP 98–99.2; O2SAT 92–98
[2017-03-11] MEDS: ACETAMINOPHEN/HYDROcodone 325 MG/5 MG TAB PO PRN ×2 (01:43→19:55)
[2017-03-11 03:27] LABS: HEMATOCRIT 34.5 % (39.0-51.0); MEAN CELL VOLUME 89.3 FL (80.0-100.0); MEAN CORPUSCULAR HEMOGLOBIN 30.3 PG (27.0-34.0); MEAN CORPUSCULAR HGB CONC 33.9 % (32.0-36.0); PLATELET COUNT 200 TH/MM3 (150-450); RED BLOOD COUNT 3.87 MIL/MM3 (4.50-5.90); RED CELL DISTRIBUTION WIDTH 14.5 % (11.6-17.2); REVIEW FLAG FINAL; WHITE BLOOD COUNT 11.6 TH/MM3 (4.0-11.0)
[2017-03-11] MEDS: CHLORHEXIDINE GLUCONATE 2 % 1 PACK (2 CLOTHS)(taper/protocol) TOPICAL SCH (04:00)
--- NOTE | 2017-03-11 06:55 | HHI.PR ---
Review/Management Diagnosis/Plan: (1) Acute encephalopathy ICD Codes: G93.40 - Encephalopathy, unspecified Status: Acute Plan: confusion and myoclonus etiology: uremia, hypokalemia vs serotonin syndrome recs neuro improved eeg- no sz activity mri brain- pending d/c keppra ok to tx to 5th floor [facility] with tele benzo prn severe tremors d/w pt/rn/ccm follow exam (2) Dementia ICD Codes: F03.90 - Unspecified dementia without behavioral disturbance Status: Chronic Plan: ? mci/dementia on aricept also on aspirin/plavix (3) Acute renal failure ICD Codes: N17.9 - Acute kidney failure, unspecified Status: Acute Plan: renal team following (4) Dehydration ICD Codes: E86.0 - Dehydration Status: Acute Plan: hydration (5) Renal stone ICD Codes: N20.0 - Calculus of kidney Subjective Subjective Comments No acute events reported No headache No chest pain No dyspnea Active Medications Current Medications Medications (Trade) Dose Ordered Sig/Severino Route Start Time Stop Time Status Last Admin (NS Flush) 2 ml UNSCH PRN IV FLUSH 03/08/17 22:45 (NS Flush) 2 ml BID IV FLUSH 03/09/17 09:00 03/10/17 08:49 (Tylenol) 650 mg Q6H PRN PO 03/08/17 22:45 ([place] 5-325 Mg) 1 tab Q4H PRN PO 03/08/17 22:45 03/11/17 01:43 (Jojo-Colace) 1 tab BID PO 03/09/17 09:00 03/10/17 21:00 (Milk Of Magnesia Liq) 30 ml Q12H PRN PO 03/08/17 22:45 (Senokot) 17.2 mg Q12H PRN PO 03/08/17 22:45 (Dulcolax Supp) 10 mg DAILY PRN RECTAL 03/08/17 22:45 (Lactulose Liq) 30 ml DAILY PRN PO 03/08/17 22:45 (Coreg) 3.125 mg BID PO 03/09/17 09:00 03/10/17 21:56 (Aricept) 5 mg HS PO 03/09/17 21:00 03/10/17 21:54 (Zoloft) 100 mg DAILY PO 03/09/17 09:00 03/10/17 08:48 (Morphine Inj) 2 mg Q3H PRN IV PUSH 03/08/17 23:15 03/08/17 23:44 (Valium) 10 mg Q8H PRN PO 03/08/17 23:15 03/10/17 21:55 (Heparin Inj) 5,000 units Q12HR SQ 03/09/17 09:00 03/10/17 21:54 (Lipitor) 80 mg HS PO 03/09/17 21:00 03/10/17 21:56 (Trusopt 2% Opth Soln) 1 drop TID EACH EYE 03/09/17 09:00 03/10/17 16:36 (Pilocar 4% Opth Soln) 1 drop BID EACH EYE 03/09/17 09:00 03/10/17 21:58 Levetriacetam 500 mg/Sodium Chloride 105 ml @ 420 mls/hr Q12H IV 03/09/17 18:00 03/10/17 16:34 Miscellaneous Information Patient in critical care unit? Ass... Q361D .XX 03/09/17 23:45 (Chlorhexidine 2% Cloth) 3 pack DAILY@04 TOPICAL 03/10/17 04:00 03/14/17 04:01 03/10/17 04:00 (Chlorhexidine 2% Cloth) 3 pack UNSCH PRN TOPICAL 03/09/17 23:45 03/14/17 23:44 (Lioresal) 5 mg TID PO 03/10/17 09:00 03/10/17 16:34 (Pill Splitter) 1 ea UNSCH PRN OTHER 03/10/17 09:00 Potassium Chloride 30 meq/ Sodium Chloride 1,015 ml @ 75 mls/hr [id number] IV 03/10/17 18:00 03/10/17 17:42 Allergies Allergies Coded Allergies diclofenac (Unverified Allergy, Severe, Edema, 03/08/17) povidone-iodine (Verified Allergy, Severe, 03/08/17) soap (Verified Allergy, Severe, 03/08/17) hydromorphone (Verified Allergy, Unknown, 03/09/17) Review of Systems All other ROS: ROS reviewed as documented in chart Exam I&O / VS Vital Signs Date Time Temp Pulse Resp B/P (MAP) Pulse Ox O2 Delivery O2 Flow Rate FiO2 03/11/17 04:00 94 Nasal Cannula 4.00 03/11/17 04:00 98.4 59 22 148/61 (90) 92 03/11/17 04:00 66 03/11/17 02:00 58 03/11/17 00:00 94 Nasal Cannula 4.00 03/11/17 00:00 98.0 57 16 144/62 (89) 92 03/11/17 00:00 57 03/10/17 22:00 53 03/10/17 21:16 93 21 03/10/17 20:00 73 03/10/17 20:00 98.3 63 15 144/63 (90) 95 03/10/17 20:00 95 Nasal Cannula 4.00 03/10/17 16:00 51 03/10/17 16:00 98.0 51 20 142/64 (90) 100 03/10/17 16:00 100 03/10/17 12:00 97.5 48 18 158/69 (98) 98 03/10/17 12:00 48 03/10/17 12:00 98 Nasal Cannula 4.00 03/10/17 08:00 48 03/10/17 08:00 97.9 48 20 134/96 (109) 99 03/10/17 08:00 99 Nasal Cannula 4.00 Exam Comments alert, speech more clear, mild inattention, ox 2, not to exact date, follows, eomi, able to name objects, resists pupillary exam, che to gravity, no asterixis in daisha ue, withdraws to pin, cerebellar/gait testing limited 2/2fall risk Objective Micro and Labs Laboratory Tests Test 03/10/17 09:25 03/10/17 10:40 03/10/17 12:45 03/10/17 14:06 Blood Urea Nitrogen 48 Creatinine 1.43 Random Glucose 158 Total Protein 7.0 Albumin 2.5 Calcium Level 8.4 Phosphorus Level 2.5 Magnesium Level 2.1 Alkaline Phosphatase 74 Aspartate Amino Transf (AST/SGOT) 46 Alanine Aminotransferase (ALT/SGPT) 28 Total Bilirubin 0.3 Sodium Level 144 Potassium Level 2.4 Chloride Level 106 Carbon Dioxide Level 30.9 Anion Gap 7 Estimat Glomerular Filtration Rate 47 White Blood Count 16.2 Red Blood Count 3.83 Hemoglobin 11.4 Hematocrit 34.1 Mean Corpuscular Volume 89.1 Mean Corpuscular Hemoglobin 29.8 Mean Corpuscular Hemoglobin Concent 33.4 Red Cell Distribution Width 14.4 Platelet Count 195 Mean Platelet Volume 7.8 Neutrophils (%) (Auto) 90.1 Lymphocytes (%) (Auto) 4.6 Monocytes (%) (Auto) 4.9 Eosinophils (%) (Auto) 0.1 Basophils (%) (Auto) 0.3 Neutrophils # (Auto) 14.6 Lymphocytes # (Auto) 0.7 Monocytes # (Auto) 0.8 Eosinophils # (Auto) 0.0 Basophils # (Auto) 0.0 CBC Comment DIFF FINAL Differential Comment Urine pH 6.0 Urine Random Sodium 46 Urine Random Potassium 6 Urine Random Chloride 56 Blood Gas Puncture Site RT RADIAL Blood Gas Patient Temperature 98.6 Blood Gas HCO3 27 Blood Gas Base Excess 2.0 Blood Gas Oxygen Saturation 96 Arterial Blood pH 7.35 Arterial Blood Partial Pressure CO2 50 Arterial Blood Partial Pressure O2 116 Arterial Blood Oxygen Content 17.5 Arterial Blood Carboxyhemoglobin 1.5 Arterial Blood Methemoglobin 1.1 Blood Gas Hemoglobin 12.9 Oxygen Delivery Device NASAL CANNULA Blood Gas Liter Flow 2 Test 03/10/17 14:49 03/11/17 02:36 Potassium Level 2.8 3.4 White Blood Count 11.6 Red Blood Count 3.87 Hemoglobin 11.7 Hematocrit 34.5 Mean Corpuscular Volume 89.3 Mean Corpuscular Hemoglobin 30.3 Mean Corpuscular Hemoglobin Concent 33.9 Red Cell Distribution Width 14.5 Platelet Count 200 Mean Platelet Volume 7.8 Problem Qualifiers (1) Acute renal failure: Qualified Codes: N17.9 - Acute kidney failure, unspecified Javed Carr MD Mar 11, 2017 06:55
[2017-03-11] MEDS: POTASSIUM CHLORIDE INJ 30 MEQ in SODIUM CHLOR 0.45% 1000 ML INJ 1,000 ML IV SCH ×2 (07:32→19:57)
[2017-03-11] MEDS: SERTRALINE HCL 100 MG TAB PO SCH (08:24)
[2017-03-11] MEDS: DOCUSATE SODIUM 50 MG/SENNA 8.6 MG TAB PO SCH ×2 (08:24→19:56)
[2017-03-11] MEDS: HEPARIN SODIUM - SQ 10,000 UNITS/ML VIAL SQ SCH ×2 (08:24→19:56)
[2017-03-11] MEDS: CARVEDILOL 3.125 MG TAB PO SCH ×2 (08:24→19:56)
[2017-03-11] MEDS: BACLOFEN 10 MG TAB PO SCH ×3 (08:24→16:58)
[2017-03-11] MEDS: SODIUM CHLORIDE 0.9% FLUSH 10 ML FLUSH IV FLUSH SCH ×2 (08:25→19:57)
[2017-03-11] MEDS: DORZOLAMIDE 2% OPTH SOLN 200 DROP/10 ML BTLO EACH EYE SCH ×3 (08:25→16:58)
[2017-03-11] MEDS: PILOCARPINE HCL 4% EACH EYE SCH ×2 (08:26→15:00)
--- NOTE | 2017-03-11 11:30 | HHI.NPPN ---
Subjective Renal Failure: Acute Interval History He remains confused. Potassium has improved. Awaiting BMP results. (Alexandria Alvarado) Review of Systems General General Remarks difficult to obtain, appears uncomfortable (Alexandria Alvarado) Objective Data Data Vital Signs Date Time Temp Pulse Resp B/P (MAP) Pulse Ox O2 Delivery O2 Flow Rate FiO2 03/11/17 08:56 96 03/11/17 08:00 55 03/11/17 08:00 100 Room Air 03/11/17 08:00 99.2 55 20 185/80 (115) 98 03/11/17 04:00 94 Nasal Cannula 4.00 03/11/17 04:00 98.4 59 22 148/61 (90) 92 03/11/17 04:00 66 03/11/17 02:00 58 03/11/17 00:00 94 Nasal Cannula 4.00 03/11/17 00:00 98.0 57 16 144/62 (89) 92 03/11/17 00:00 57 03/10/17 22:00 53 03/10/17 21:16 93 21 03/10/17 20:00 73 03/10/17 20:00 98.3 63 15 144/63 (90) 95 03/10/17 20:00 95 Nasal Cannula 4.00 03/10/17 16:00 51 03/10/17 16:00 98.0 51 20 142/64 (90) 100 03/10/17 16:00 100 03/10/17 12:00 97.5 48 18 158/69 (98) 98 03/10/17 12:00 48 03/10/17 12:00 98 Nasal Cannula 4.00 (Alexandria Alvarado) -: 03/11/17 0236 03/11/17 0236 Imaging Last 72 hours Impressions Abdomen/Pelvis CT 03/08/17 194 Signed Impressions: Service Date/Time: Wednesday, March 08, 2017 22:08 - CONCLUSION: 1. 3 cm calcified gallstone. 2. 2.5 cm low density lesion within the left lobe of the liver near the dome which is indeterminate on this unenhanced examination. MRI of the abdomen with contrast as an outpatient could be performed for further evaluation of this finding if clinically indicated. 3. Uncomplicated sigmoid diverticulosis. 4. Calcified non-obstructing right renal calculi with the larger of the two measuring 3 mm. 5. 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 Jason Spencer MD Tubes & Lines: Gastelum (Christiano,Alexandria B. LVN) Physical Exam General Appearance: Well Developed, Malnourished Appearance Remarks disheveled, anxious (Christiano,Alexandria B. LVN) Eyes Eye Exam: Pupils Equal (Christiano,Alexandria B. LVN) Throat Throat Exam: Oral Mucosa [place] & Moist (Christiano,Alexandria B. LVN) Pulmonary Resp Exam: Clear Bilaterally, Breath Sounds Equal (Christiano,Alexandria B. LVN) Cardiology CV Exam: Regular, Good Perfusion (Christiano,Alexandria B. LVN) Gastrointestinal/Abdomen GI Exam: Soft, Non-Tender (Christiano,Alexandria B. LVN) Genitourinary Exam: Flank Non-Tender (Christiano,Alexandria B. LVN) Musculoskeletal MS Exam: Joints Intact, Normal Tone, Unable to Ambulate (Christiano,Alexandria B. LVN) Integumentary Skin Exam: Warm, Dry (Christiano,Alexandria B. LVN) Extremeties Extremities Exam: No Edema, Pedal Pulses Palpable (Christiano,Alexandria B. LVN) Neurologic Neuro Exam: Awake, Moving All Extremities, Combative (Christiano,Alexandria B. LVN) Assessment/Plan Assessment Summary: EVANGELISTA/Acute Renal Failure Electrolyte Assessment: Hypokalemia Problem List: (1) EVANGELISTA (acute kidney injury) ICD Codes: N17.9 - Acute kidney failure, unspecified Plan: EVANGELISTA from pre-renal azotemia, was improving, awaiting repeat labs continue IVF replace potassium avoid nephrotoxic substances monitor urine output, has gastelum, is non oliguric (2) Hypokalemia ICD Codes: E87.6 - Hypokalemia Plan: Possibly from renal losses due to diuretic use. currently improving continue to replace awaiting 24 hour urine collection for potassium. (3) Dehydration ICD Codes: E86.0 - Dehydration Status: Acute Plan: Improved. (4) Muscle spasm ICD Codes: M62.838 - Other muscle spasm Status: Acute Plan: Unclear etiology. Not seizure activity per EEG (5) Acute encephalopathy ICD Codes: G93.40 - Encephalopathy, unspecified Status: Acute Plan: Neurology following. EEG negative for seizures; Etiology is unclear at this time. (Alexandria Alvarado) Plan patient was seen and examined. Agree with above assessment and plan. Serum potassium has improved. Potassium added to IVF. (Timoteo Kelly MD) Alexandria Alvarado Mar 11, 2017 11:30 Timoteo Kelly MD Mar 11, 2017 17:15
--- NOTE | 2017-03-11 17:04 | HHI.CCPN ---
Subjective Remarks/Hospital Course 81-year-old male with a history of Prostate cancer, history of CVA, hypertension , Renal Stones and Sleep Apnea who was admitted secondary to complaints of severe back pain. The patient denies recent injury/trauma. No fever, chills, weakness or incontinence. Seen at [facility] for similar complaints on 03/08/17, he completed CT Abd/Pelvis with finding of nonobstructing right renal calculous without hydronephrosis, large partially calcified gallstone and no evidence of cholecystitis and lumbar spondylosis w/ multilevel disk disease worse at L5-S1 w/ severe leftward neural foraminal narrowing. Was Rx Baclofen and d/c'd home. States pain became unbearable tonight. No h/o similar symptoms. Reports back pain bilateral flank, no radicular pain. On arrival, BP 156/67, HR 57, O2 sat 100% on RA, Afebrile. WBC 12.9. K+ 2.8, creatinine 3.03, previously 1.35 on 01/06/13. UA negative. CT Abd/Pelvis w/ 3cm calcified gallstone, 2.5cm low density lesion left lobe liver, recommendation for outpatient MRI, non-obstructing right renal calculi, multi-level spinal stenosis. S/p Morphine/Zofran in ER w/ minimal improvement in pain complaints. Patient sent to the Critical Care unit this afternoon secondary to seizure vs. seizure-like activity. Recurrent episodes of bilateral full body shakes/tremors. Patient is not loosing consciousness during these episodes, but can not voluntarily stop shaking. 03/10: Awake and oriented to person only. Intermittent episodes of tremulousness possibly pain related. Patient does have his consciousness. Agree with neurology medication versus electrolyte related. Potassium currently been replaced. Subjective 03/11: Tmax 99.2. Currently afebrile. 6 bowel movements. Potassium is normalized. Plan for MRI brain. EEG revealed no seizure activity. Objective Vital Signs Date Time Temp Pulse Resp B/P (MAP) Pulse Ox O2 Delivery O2 Flow Rate FiO2 03/11/17 16:00 94 Room Air 03/11/17 16:00 63 03/11/17 12:00 98.0 22 150/67 (94) 03/11/17 04:00 4.00 03/10/17 21:16 21 Intake and Output 03/11/17 03/11/17 03/12/17 08:00 16:00 00:00 Output Total 1100 ml Balance -1100 ml Result Diagram: 03/11/17 0236 03/11/17 1140 Imaging Last Impressions Abdomen/Pelvis CT 03/08/17 1941 Signed Impressions: Service Date/Time: Wednesday, March 08, 2017 22:08 - CONCLUSION: 1. 3 cm calcified gallstone. 2. 2.5 cm low density lesion within the left lobe of the liver near the dome which is indeterminate on this unenhanced examination. MRI of the abdomen with contrast as an outpatient could be performed for further evaluation of this finding if clinically indicated. 3. Uncomplicated sigmoid diverticulosis. 4. Calcified non-obstructing right renal calculi with the larger of the two measuring 3 mm. 5. 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 Jason Spencer MD Renal Ultrasound 03/08/17 0000 Signed Impressions: Service Date/Time: Wednesday, March 08, 2017 22:47 - CONCLUSION: 1. Right kidney is slightly smaller than the left but otherwise no significant abnormality is identified. There is no hydronephrosis. 2. There is a single stone within the gallbladder. Juanito Le MD Objective Remarks GENERAL: 81 year old male, resting in bed in no acute distress SKIN: Warm and dry. HEAD: Atraumatic. Normocephalic. EYES: Pupils equal and round. No scleral icterus. No injection or drainage. ENT: No nasal bleeding or discharge. Mucous membranes pink and moist. NECK: Trachea midline. No JVD. CARDIOVASCULAR: Regular rate and rhythm. S1, S2 no S4. RESPIRATORY: No accessory muscle use. Clear to auscultation. Breath sounds equal bilaterally. GASTROINTESTINAL: Abdomen soft, non-tender, nondistended. Hepatic and splenic margins not palpable. MUSCULOSKELETAL: Extremities without clubbing, cyanosis, or edema. No obvious deformities. NEUROLOGICAL: Awake and alert. More focal and awake today. Fine tremor/ asterixis. No pronator drift. Strength appears equal symmetric. A/P Assessment and Plan Neuro/Psych: 2010 History of subdural hematoma Dementia disorder NOS Tremors - medication induced morphine/Zofran rule out serotonin syndrome Right eye cataract - Keppra 500 mg IV twice a day/as needed benzodiazepine - EEG results revealed no obvious epileptiform activity. - Management per neurology Continue pilocarpine and dorzolamide 2% eye drops Currently Flexeril 5 mg 3 times a day. Continue for now. As needed morphine for pain management Continues Zoloft 100 mg by mouth daily Continue Aricept 5 mg daily MRI brain ordered CV: Coronary disease status post stents Hypertension Dyslipidemia Chronic systolic heart failure ejection fraction 40-45% Moderate TR Pulmonary hypertension Continue Plavix 75 mg by mouth daily as indicated Continue Lipitor 80 mg by mouth daily Continue Coreg 3.2 mg by mouth twice a day Resp: ARMAND Nasal cannula to maintain saturations greater than equal to 90% Incentive spirometry while awake CPAP at night GI: Cholelithiasis Sigmoid diverticulosis Diarrhea Advance diet as tolerated : Nelson catheter if indicated Endo: Hypothyroidism Continue Levoxyl 75 mg by mouth daily Renal: Right renal calculus Acute kidney injury Creatinine 3.0 admission. Currently 1.4. Continue gentle hydration Appreciate nephrology consult Heme: History of prostate cancer Currently stable. ID: Monitor for infection FEN: Hypokalemia Persistent hypokalemia. Check urine pH, electrolyte. Possible RTA? Nephrology consultation MSK: Spinal stenosis PT evaluate and treat Access - Utilize peripheral IV. Central line if indicated Prophylaxis - GI - famotidine - DVT - heparin subcutaneous Level II follow-up. Stable from my standpoint. Assign care to hospitalist in a.m. 03/12 Dave Elizabeth MD Mar 11, 2017 17:04
[2017-03-11 19:46] LABS: BICARBONATE 30.2 MEQ/L (21.0-32.0); MAGNESIUM 1.8 MG/DL (1.5-2.5); POTASSIUM 3.4 MEQ/L (3.5-5.1)
[2017-03-11] MEDS: ATORVASTATIN 80 MG TAB PO SCH (19:54)
[2017-03-11] MEDS: DIAZEPAM 10 MG TAB PO PRN (19:56)
[2017-03-11] MEDS: DONEPEZIL HCL 5 MG TAB PO SCH (19:56)
[2017-03-11 23:19] LABS: BICARBONATE 27.6 MEQ/L (21.0-32.0); MAGNESIUM 1.7 MG/DL (1.5-2.5); POTASSIUM 3.1 MEQ/L (3.5-5.1)
[2017-03-12] VITALS (13 sets, daily range): BP systolic 134–165; BP diastolic 59–81; PULSE 50–90; RESP 18–20; TEMP 97.7–99.2; O2SAT 93–99
[2017-03-12] MEDS ORDERED: POTASSIUM CHLORIDE 20 MEQ CONTROLLED RELEASE TAB PO ONE (00:45)
[2017-03-12] MEDS: CHLORHEXIDINE GLUCONATE 2 % 1 PACK (2 CLOTHS)(taper/protocol) TOPICAL SCH (04:00)
[2017-03-12] MEDS: DIAZEPAM 10 MG TAB PO PRN (05:45)
[2017-03-12] MEDS: ACETAMINOPHEN/HYDROcodone 325 MG/5 MG TAB PO PRN (05:46)
[2017-03-12 06:23] LABS: HEMATOCRIT 37.8 % (39.0-51.0); MEAN CELL VOLUME 90.7 FL (80.0-100.0); MEAN CORPUSCULAR HEMOGLOBIN 29.8 PG (27.0-34.0); MEAN CORPUSCULAR HGB CONC 32.9 % (32.0-36.0); PLATELET COUNT 212 TH/MM3 (150-450); RED BLOOD COUNT 4.17 MIL/MM3 (4.50-5.90); RED CELL DISTRIBUTION WIDTH 14.7 % (11.6-17.2); REVIEW FLAG FINAL; WHITE BLOOD COUNT 11.9 TH/MM3 (4.0-11.0)
[2017-03-12 06:45] LABS: POTASSIUM 3.3 MEQ/L (3.5-5.1)
[2017-03-12 06:50] LABS: CHLORIDE - TIMED URINE 96 MEQ/L; POTASSIUM 24 HOUR URINE 35 MEQ/24HR (40-80); POTASSIUM TIMED URINE 15 MEQ/L; SODIUM - TIMED URINE 73 MEQ/L; SODIUM 24 HOUR URINE 170 MEQ/24HR (80-180)
[2017-03-12] MEDS: CARVEDILOL 3.125 MG TAB PO SCH ×3 (09:00→20:31)
[2017-03-12] MEDS: SODIUM CHLORIDE 0.9% FLUSH 10 ML FLUSH IV FLUSH SCH ×2 (09:00→20:31)
[2017-03-12] MEDS: DORZOLAMIDE 2% OPTH SOLN 200 DROP/10 ML BTLO EACH EYE SCH ×3 (09:13→17:24)
--- NOTE | 2017-03-12 09:13 | HHI.PR ---
Review/Management Diagnosis/Plan: (1) Acute encephalopathy ICD Codes: G93.40 - Encephalopathy, unspecified Status: Acute Plan: confusion and myoclonus etiology: uremia, hypokalemia vs serotonin syndrome myoclonus resolved recs neuro continues to improve mri brain- pending ok to tx to 5th floor michelle calebcheyanne with tele/ d/c planning outpatient f/u with me in 2-3 weeks no driving follow exam (2) Dementia ICD Codes: F03.90 - Unspecified dementia without behavioral disturbance Status: Chronic Plan: ? mci/dementia on aricept also on aspirin/plavix (3) Acute renal failure ICD Codes: N17.9 - Acute kidney failure, unspecified Status: Acute Plan: renal team following (4) Dehydration ICD Codes: E86.0 - Dehydration Status: Acute Plan: hydration (5) Renal stone ICD Codes: N20.0 - Calculus of kidney Subjective Subjective Comments No acute events reported No headache No chest pain No dyspnea Active Medications Current Medications Medications (Trade) Dose Ordered Sig/Severino Route Start Time Stop Time Status Last Admin (NS Flush) 2 ml UNSCH PRN IV FLUSH 03/08/17 22:45 (NS Flush) 2 ml BID IV FLUSH 03/09/17 09:00 03/11/17 19:57 (Tylenol) 650 mg Q6H PRN PO 03/08/17 22:45 ([place] 5-325 Mg) 1 tab Q4H PRN PO 03/08/17 22:45 03/12/17 05:46 (Jojo-Colace) 1 tab BID PO 03/09/17 09:00 03/11/17 08:24 (Milk Of Magnesia Liq) 30 ml Q12H PRN PO 03/08/17 22:45 (Senokot) 17.2 mg Q12H PRN PO 03/08/17 22:45 (Dulcolax Supp) 10 mg DAILY PRN RECTAL 03/08/17 22:45 (Lactulose Liq) 30 ml DAILY PRN PO 03/08/17 22:45 (Coreg) 3.125 mg BID PO 03/09/17 09:00 03/11/17 19:56 (Aricept) 5 mg HS PO 03/09/17 21:00 03/11/17 19:56 (Zoloft) 100 mg DAILY PO 03/09/17 09:00 03/11/17 08:24 (Morphine Inj) 2 mg Q3H PRN IV PUSH 03/08/17 23:15 03/08/17 23:44 (Valium) 10 mg Q8H PRN PO 03/08/17 23:15 03/12/17 05:45 (Heparin Inj) 5,000 units Q12HR SQ 03/09/17 09:00 03/11/17 19:56 (Lipitor) 80 mg HS PO 03/09/17 21:00 03/11/17 19:54 (Trusopt 2% Opth Soln) 1 drop TID EACH EYE 03/09/17 09:00 03/11/17 15:00 (Pilocar 4% Opth Soln) 1 drop BID EACH EYE 03/09/17 09:00 03/11/17 15:00 Miscellaneous Information Patient in critical care unit? Ass... [id number] .XX 03/09/17 23:45 (Chlorhexidine 2% Cloth) 3 pack DAILY@04 TOPICAL 03/10/17 04:00 03/14/17 04:01 03/12/17 04:00 (Chlorhexidine 2% Cloth) 3 pack UNSCH PRN TOPICAL 03/09/17 23:45 03/14/17 23:44 (Lioresal) 5 mg TID PO 03/10/17 09:00 03/11/17 14:59 (Pill Splitter) 1 ea UNSCH PRN OTHER 03/10/17 09:00 Potassium Chloride 30 meq/ Sodium Chloride 1,015 ml @ 75 mls/hr [id number] IV 03/10/17 18:00 03/11/17 19:57 Allergies Allergies Coded Allergies diclofenac (Unverified Allergy, Severe, Edema, 03/08/17) povidone-iodine (Verified Allergy, Severe, 03/08/17) soap (Verified Allergy, Severe, 03/08/17) hydromorphone (Verified Allergy, Unknown, 03/09/17) Review of Systems All other ROS: ROS reviewed as documented in chart Exam I&O / VS Vital Signs Date Time Temp Pulse Resp B/P (MAP) Pulse Ox O2 Delivery O2 Flow Rate FiO2 03/12/17 04:00 99.2 58 20 148/67 (94) 94 03/12/17 04:00 60 03/12/17 04:00 94 Room Air 03/12/17 00:00 55 03/12/17 00:00 96 Nasal Cannula 4.00 03/12/17 00:00 99.2 55 137/59 (85) 94 03/11/17 20:00 95 Nasal Cannula 4.00 03/11/17 20:00 98.3 70 160/90 (113) 93 03/11/17 20:00 70 03/11/17 19:16 94 03/11/17 16:00 94 Room Air 03/11/17 16:00 63 03/11/17 16:00 99.0 63 23 188/74 (112) 94 03/11/17 12:00 62 03/11/17 12:00 100 Room Air 03/11/17 12:00 98.0 62 22 150/67 (94) 95 Exam Comments alert, speech more clear, better attention, ox 2, not to exact date, follows, eomi, vff, che to gravity, no asterixis in daisha ue, withdraws to pin, cerebellar/ gait testing limited 2/2 fall risk Objective Micro and Labs Laboratory Tests Test 03/11/17 10:50 03/11/17 11:40 03/11/17 17:42 03/11/17 19:00 Potassium Level 3.8 3.5 3.4 Blood Urea Nitrogen 25 Creatinine 1.12 Random Glucose 151 Calcium Level 8.8 Magnesium Level 1.8 Sodium Level 147 Chloride Level 111 Carbon Dioxide Level 30.2 Anion Gap 6 Estimat Glomerular Filtration Rate 63 Urine Total Volume 24 Hours 2325 Urine Creatinine 24 Hour 1.32 Urine Sodium 24 Hour 170 Urine Potassium 24 Hour 35 Urine Chloride 24 Hour 223 Test 03/11/17 22:38 03/12/17 05:55 Blood Urea Nitrogen 22 18 Creatinine 1.07 1.04 Random Glucose 173 133 Albumin 2.2 Calcium Level 8.4 8.9 Phosphorus Level 1.0 1.2 Magnesium Level 1.7 Sodium Level 146 146 Potassium Level 3.1 3.3 Chloride Level 111 110 Carbon Dioxide Level 27.6 29.0 Anion Gap 7 7 Estimat Glomerular Filtration Rate 66 68 White Blood Count 11.9 Red Blood Count 4.17 Hemoglobin 12.4 Hematocrit 37.8 Mean Corpuscular Volume 90.7 Mean Corpuscular Hemoglobin 29.8 Mean Corpuscular Hemoglobin Concent 32.9 Red Cell Distribution Width 14.7 Platelet Count 212 Mean Platelet Volume 7.4 Problem Qualifiers (1) Acute renal failure: Qualified Codes: N17.9 - Acute kidney failure, unspecified Javed Carr MD Mar 12, 2017 09:13
[2017-03-12] MEDS: PILOCARPINE HCL 4% EACH EYE SCH ×2 (09:14→20:30)
[2017-03-12] MEDS: BACLOFEN 10 MG TAB PO SCH ×3 (09:14→17:24)
[2017-03-12] MEDS: SERTRALINE HCL 100 MG TAB PO SCH (09:14)
[2017-03-12] MEDS: DOCUSATE SODIUM 50 MG/SENNA 8.6 MG TAB PO SCH ×2 (09:14→20:31)
[2017-03-12] MEDS: MORPHINE SULFATE 4 MG/ML INJ IV PUSH PRN (09:15)
[2017-03-12] MEDS: HEPARIN SODIUM - SQ 10,000 UNITS/ML VIAL SQ SCH ×2 (09:16→20:31)
--- NOTE | 2017-03-12 10:27 | HHI.PR ---
Subjective Remarks No seizures reported overnight by nursing. Patient has been stable overnight. MRI has been delayed due to being understaffed. RN also reports multiple small BMs that are liquid. When asked about his abdominal pain, he says eating does not worsen it Objective Vital Signs Date Time Temp Pulse Resp B/P (MAP) Pulse Ox O2 Delivery O2 Flow Rate FiO2 03/12/17 09:20 96 21 03/12/17 09:01 60 165/69 (101) 96 03/12/17 09:00 63 96 03/12/17 08:00 Room Air 03/12/17 08:00 50 134/81 (98) 93 03/12/17 08:00 97.7 03/12/17 04:00 99.2 58 20 148/67 (94) 94 03/12/17 04:00 60 03/12/17 04:00 94 Room Air 03/12/17 00:00 55 03/12/17 00:00 96 Nasal Cannula 4.00 03/12/17 00:00 99.2 55 137/59 (85) 94 03/11/17 20:00 95 Nasal Cannula 4.00 03/11/17 20:00 98.3 70 160/90 (113) 93 03/11/17 20:00 70 03/11/17 19:16 94 03/11/17 16:00 94 Room Air 03/11/17 16:00 63 03/11/17 16:00 99.0 63 23 188/74 (112) 94 03/11/17 12:00 62 03/11/17 12:00 100 Room Air 03/11/17 12:00 98.0 62 22 150/67 (94) 95 I/O 03/11/17 03/11/17 03/11/17 03/12/17 03/12/17 03/12/17 07:00 15:00 23:00 07:00 15:00 23:00 Intake Total 2057 ml 433 ml Output Total 1100 ml 950 ml 650 ml Balance -1100 ml 1107 ml -217 ml Intake Oral 1500 ml IV Total 557 ml 433 ml Output Urine Total 1100 ml 950 ml 650 ml # Bowel Movements 1 3 0 Result Diagram: 03/12/17 0555 03/12/17 0555 Imaging Last Impressions Abdomen/Pelvis CT 03/08/171940 Signed Impressions: Service Date/Time: Wednesday, March 08, 2017 22:08 - CONCLUSION: 1. 3 cm calcified gallstone. 2. 2.5 cm low density lesion within the left lobe of the liver near the dome which is indeterminate on this unenhanced examination. MRI of the abdomen with contrast as an outpatient could be performed for further evaluation of this finding if clinically indicated. 3. Uncomplicated sigmoid diverticulosis. 4. Calcified non-obstructing right renal calculi with the larger of the two measuring 3 mm. 5. 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 Jason Spencer MD Renal Ultrasound 03/08/17 0000 Signed Impressions: Service Date/Time: Wednesday, March 08, 2017 22:47 - CONCLUSION: 1. Right kidney is slightly smaller than the left but otherwise no significant abnormality is identified. There is no hydronephrosis. 2. There is a single stone within the gallbladder. Juanito Le MD Objective Remarks GENERAL: Lying in bed, no acute distress CARDIOVASCULAR: Muffled heart sounds RESPIRATORY: Coarse scattered breath sounds bilaterally, unlabored breathing GASTROINTESTINAL: Moderate tenderness to palpation in epigastrium, no palpable masses otherwise in context of obese abdomen Neuro: No facial droop noted, alert and oriented 3 A/P Problem List: (1) Low back pain ICD Code: M54.5 - Low back pain Status: Acute (2) Hypokalemia ICD Code: E87.6 - Hypokalemia (3) Intractable back pain ICD Code: M54.9 - Dorsalgia, unspecified (4) Renal stone ICD Code: N20.0 - Calculus of kidney (5) Acute encephalopathy ICD Code: G93.40 - Encephalopathy, unspecified Status: Acute (6) Muscle spasm ICD Code: M62.838 - Other muscle spasm Status: Acute Assessment and Plan 2010 History of subdural hematoma Tremors - medication induced morphine/Zofran rule out serotonin syndrome New onset seizures - Keppra 500 mg IV twice a day/as needed benzodiazepine - EEG results revealed no obvious epileptiform activity. - Management per neurology, awaiting brain MRI to be performed Back pain and muscle spasms -Currently Flexeril 5 mg 3 times a day. Continue for now. -As needed morphine for pain management Abd tenderness - ordering Hepatic and GB US and CMP, may need CT w/ contrast given indeterminate lesion - given diarrhea, will order C.diff - possibly 2/2 chronic diverticulosis Dementia -Continues Zoloft 100 mg by mouth daily -Continue Aricept 5 mg daily CV: CAD/Dyslipidemia -Continue Plavix 75 mg by mouth daily as indicated -Continue Lipitor 80 mg by mouth daily CHFrEF 40-45%/HTN -Continue Coreg 3.2 mg by mouth twice a day -starting lisinopril ARMAND CPAP at night : Nelson catheter if indicated Endo: Hypothyroidism Continue Levoxyl 75 mg by mouth daily History of prostate cancer Hypokalemia will recheck in AM, replace Spinal stenosis PT treating Prophylaxis - GI - famotidine - DVT - heparin subcutaneous Berlin Luna MD Mar 12, 2017 10:27
--- NOTE | 2017-03-12 11:01 | RADRPT ---
EXAM DATE/TIME: 03/12/2017 10:26 [facility] COMPARISON: No previous studies available for comparison. INDICATIONS : CVA. Tremors. Altered mental status. MEDICAL HISTORY : Carcinoma, prostate. Cerebrovascular disease. Hypertension. Renal calculi. SURGICAL HISTORY : Prostatectomy. Coronary artery stent. Evacuation of subdural hematoma. ENCOUNTER: Subsequent ACUITY: 4-6 days PAIN SCORE: 0/10 LOCATION: head. TECHNIQUE: Multiplanar, multisequence MRI of the brain was performed without contrast. FINDINGS: CEREBRUM: Atrophy. The ventricles are prominent and slightly out of proportion to the sulcal pattern. No evide nce of midline shift, mass lesion, hemorrhage or acute infarction. No extraaxial fluid collections a re seen. The pituitary gland and suprasellar cistern are normal in configuration. WHITE MATTER: Mild scattered high flair signal involving the periventricular white matter post renal hemispheres. N o involvement of the corpus callosum or michael. POSTERIOR FOSSA: The cerebellum and brainstem are intact. The 4th ventricle is midline. The cerebellopontine angle is unremarkable. The cerebellar tonsils are normal in position. DIFFUSION IMAGING: No focal areas of restricted diffusion are seen. No evidence of acute infarction. EXTRACRANIAL: The visualized portions of the orbits and paranasal sinuses are unremarkable. CONCLUSION: 1. No acute intracranial abnormality. 2. Atrophy. 3. Ventriculomegaly. This could relate to more centralized forms of atrophy but normal pressure hydro cephaly can have a similar appearance. Ramsey Guzman Jr., MD on March 12, 2017 at 10:54 Board Certified Radiologist. This report was verified electronically.
[2017-03-12 12:49] LABS: TOTAL BILIRUBIN ADULT 0.4 MG/DL (0.2-1.0)
[2017-03-12 13:04] LABS: INDIRECT BILIRUBIN 0.3 MG/DL (0.0-0.8)
[2017-03-12] MEDS: POTASSIUM CHLORIDE INJ 30 MEQ in SODIUM CHLOR 0.45% 1000 ML INJ 1,000 ML IV SCH (13:09)
[2017-03-12] MEDS: POTASSIUM CHLORIDE INJ 20 MEQ, SODIUM CHLORIDE 23.4% INJ 38.5 MEQ in WATER STERILE FOR ... IV SCH (14:11)
--- NOTE | 2017-03-12 14:25 | HHI.NPPN ---
Subjective Renal Failure: Acute Interval History He is more alert today. Renal function is better. Potassium improved as well. (Alexandria Alvarado) Review of Systems Ears, Nose, & Throat ENT Remarks reporting thirst (Alexandria Alvarado) Objective Data Data 03/12/17 03/13/17 19:00 07:00 Intake Total 1067 ml Balance 1067 ml IV Total 1067 ml Vital Signs Date Time Temp Pulse Resp B/P (MAP) Pulse Ox O2 Delivery O2 Flow Rate FiO2 03/12/17 14:00 60 03/12/17 13:07 58 140/63 (88) 97 03/12/17 13:07 58 03/12/17 12:01 55 03/12/17 12:01 55 136/61 (86) 99 03/12/17 12:00 Room Air 03/12/17 12:00 56 97 03/12/17 12:00 97.9 03/12/17 12:00 56 03/12/17 09:20 96 21 03/12/17 09:20 20 03/12/17 09:01 60 165/69 (101) 96 03/12/17 09:00 63 96 03/12/17 08:00 Room Air 03/12/17 08:00 90 03/12/17 08:00 50 134/81 (98) 93 03/12/17 08:00 97.7 03/12/17 04:00 99.2 58 20 148/67 (94) 94 03/12/17 04:00 60 03/12/17 04:00 94 Room Air 03/12/17 00:00 55 03/12/17 00:00 96 Nasal Cannula 4.00 03/12/17 00:00 99.2 55 137/59 (85) 94 03/11/17 20:00 95 Nasal Cannula 4.00 03/11/17 20:00 98.3 70 160/90 (113) 93 03/11/17 20:00 70 03/11/17 19:16 94 03/11/17 16:00 94 Room Air 03/11/17 16:00 63 03/11/17 16:00 99.0 63 23 188/74 (112) 94 (Alexandria Alvaraod) -: 03/12/17 0555 03/12/17 0555 Imaging Last 72 hours Impressions Brain MRI 03/12/17 0000 Signed Impressions: Service Date/Time: February 10:26 - CONCLUSION: 1. No acute intracranial abnormality. 2. Atrophy. 3. Ventriculomegaly. This could relate to more centralized forms of atrophy but normal pressure hydrocephaly can have a similar appearance. Ramsey Guzman Jr., MD Tubes & Lines: Gastelum (ChristianoAlexandria B. WEARING APPAREL FOLDER) Physical Exam General Appearance: Well Developed, No Acute Distress, Comfortable, Sleeping, Malnourished (Christiano,Alexandria B. WEARING [employer]PAR[employer] F[employer]DER) Eyes Eye Exam: Pupils Equal (Christiano,Alexandria B. WEARING [employer]PAR[employer]OLDER) Throat Throat Exam: Oral Mucosa [place] & Moist (Christiano,Alexandria B. WEARING [employer]PAR[employer]DER) Neck Neck Exam: Neck Supple (Christiano,Alexandria B. WEARING [employer]PAR[employer]DER) Pulmonary Resp Exam: Clear Bilaterally, Breath Sounds Equal (Christiano,Alexandria B. WEARING [employer]PAR[employer]DER) Cardiology CV Exam: Regular, Good Perfusion (Christiano,Alexandria B. WEARING [employer]PAR[employer] FOLDER) Gastrointestinal/Abdomen GI Exam: Soft, Non-Tender, Bowel Sounds Present (Christiano,Alexandria B. WEARING [employer]PAR[employer]DER) Genitourinary Exam: Flank Non-Tender (Christiano,Alexandria B. WEARING [employer]PAR[employer]DER) Musculoskeletal MS Exam: Joints Intact, Normal Tone, Unable to Ambulate (Christiano,Alexandria B. WEARING [employer]PAR[employer]DER) Integumentary Skin Exam: Clear, Warm, Dry, Intact (Christiano,Alexandria B. WEARING [employer]PAR[employer]DER) Extremeties Extremities Exam: No Edema, Pedal Pulses Palpable (Christiano,Alexandria B. WEARING [employer]DER) Neurologic Neuro Exam: Alert, Awake, Oriented, Speech Clear, Moving All Extremities (Christiano,Alexandria B. WEARING [employer]PAR[employer] F[employer]DER) Psychiatric Psych Exam: Appropriate Responses (Christiano,Alexandria B. WEARING [employer]PAR[employer]DER) Assessment/Plan Discussed Condition With: Patient Assessment Summary: EVANGELISTA/Acute Renal Failure Electrolyte Assessment: Hypokalemia Problem List: (1) EVANGELISTA (acute kidney injury) ICD Codes: N17.9 - Acute kidney failure, unspecified Plan: EVANGELISTA from pre-renal azotemia due to dehydration renal funciton is improving adequate urine output remove gastelum when able continue IVF; changed to 1/4 NS with 30 KCL @ 75 cc/hr follow fluid status; encourage oral hydration replace potassium as needed avoid nephrotoxic substances, and repeat labs in am (2) Hypokalemia ICD Codes: E87.6 - Hypokalemia Plan: Possibly from renal losses due to diuretic use. currently improving, continue to replace 24 hour urine for potassium is not high, suggesting no renal K wasting (3) Dehydration ICD Codes: E86.0 - Dehydration Status: Acute Plan: Improving (4) Muscle spasm ICD Codes: M62.838 - Other muscle spasm Status: Acute Plan: Unclear etiology. Not seizure activity per EEG (5) Acute encephalopathy ICD Codes: G93.40 - Encephalopathy, unspecified Status: Acute Plan: Neurology following. EEG negative for seizures; Etiology is unclear at this time. he is on Aricept and Zoloft; also on muscle relaxers that may cause altered mental status; he is sleepy today (Alexandria Alvarado) Plan patient was seen and examined. Sleepy. Renal function is better. Continue to replace potassium. No evidence of renal wasting of potassium. (Timoteo Kelly MD) Alexandria Alvarado Mar 12, 2017 14:25 Timoteo Kelly MD Mar 12, 2017 16:18
--- NOTE | 2017-03-12 19:08 | RADRPT ---
EXAM DATE/TIME: 03/12/2017 17:01 [facility] COMPARISON: CT ABDOMEN & PELVIS W/O CONTRAST, March 08, 2017, 22:08. INDICATIONS : Abdominal pain. MEDICAL HISTORY : Myocardial infarction. Congestive heart failure. Hypercholesterolemia. Cataracts. Glaucome. Dementia. CVA. Respiratory. Ulcer. Kidney stones. Prostate cancer. SURGICAL HISTORY : Eye surgery. Oral surgery. Brain shunt. Heart stents. Prostatectomy. ENCOUNTER: Initial ACUITY: 1 day PAIN SCORE: 7/10 LOCATION: Abdomen. MEASUREMENTS: LIVER: 16.4 cm length COMMON DUCT: 5 mm RIGHT KIDNEY: 11.3 x 4.3 x 5.1 cm LEFT KIDNEY: 10.9 x 4.4 x 5.4 cm SPLEEN: 12.8 cm length AORTA: 1.9cm maximal FINDINGS: LIVER: There is a 2 cm minimally complex cyst seen at the left lobe. The liver is slightly echogenic. COMMON DUCT: No intraluminal mass or stone visualized. GALLBLADDER: There is a 2.4 cm gallstone present. The gallbladder wall is not thickened. PANCREAS: The visualized portions are within normal limits. RIGHT KIDNEY: No hydronephrosis, stone or mass. LEFT KIDNEY: No hydronephrosis, stone or mass. SPLEEN: No focal lesion. The spleen is upper limits of normal for size. AORTA: Non aneurysmal. IVC: Within normal limits. CONCLUSION: 1. Gallstone 2. Minimally complex 2 cm cyst in the left lobe of the liver. Juanito Calero MD on March 12, 2017 at 19:03 Board Certified Radiologist. This report was verified electronically.
[2017-03-12] MEDS: DONEPEZIL HCL 5 MG TAB PO SCH (20:31)
[2017-03-12] MEDS: ATORVASTATIN 80 MG TAB PO SCH (20:31)
[2017-03-13] VITALS (13 sets, daily range): BP systolic 114–159; BP diastolic 58–70; PULSE 56–100; RESP 16–29; TEMP 97.9–99; O2SAT 91–97
[2017-03-13] MEDS: ACETAMINOPHEN/HYDROcodone 325 MG/5 MG TAB PO PRN (02:43)
[2017-03-13] MEDS: CHLORHEXIDINE GLUCONATE 2 % 1 PACK (2 CLOTHS)(taper/protocol) TOPICAL SCH (04:00)
[2017-03-13 06:06] LABS: C. DIFF EPI 027 PRESUMPTIVE NEGATIVE (NEGATIVE)
[2017-03-13] MEDS: PILOCARPINE HCL 4% EACH EYE SCH ×2 (08:51→20:56)
[2017-03-13] MEDS: SODIUM CHLORIDE 0.9% FLUSH 10 ML FLUSH IV FLUSH SCH ×2 (08:51→20:56)
[2017-03-13] MEDS: DORZOLAMIDE 2% OPTH SOLN 200 DROP/10 ML BTLO EACH EYE SCH ×3 (08:51→17:45)
[2017-03-13] MEDS: CARVEDILOL 3.125 MG TAB PO SCH ×2 (08:53→20:56)
[2017-03-13] MEDS: BACLOFEN 10 MG TAB PO SCH ×3 (08:54→17:45)
[2017-03-13] MEDS: DOCUSATE SODIUM 50 MG/SENNA 8.6 MG TAB PO SCH ×2 (08:54→20:57)
[2017-03-13] MEDS: SERTRALINE HCL 100 MG TAB PO SCH (08:54)
[2017-03-13] MEDS: HEPARIN SODIUM - SQ 10,000 UNITS/ML VIAL SQ SCH (08:54)
--- NOTE | 2017-03-13 12:12 | HHI.NPPN ---
Subjective Renal Failure: Acute Interval History He is more alert. Eating better. AM labs not available as of yet. (Alexandria Alvarado) Review of Systems Ears, Nose, & Throat ENT Remarks reporting thirst (Alexandria Alvarado) Objective Data Data Vital Signs Date Time Temp Pulse Resp B/P (MAP) Pulse Ox O2 Delivery O2 Flow Rate FiO2 03/13/17 10:00 66 25 96 03/13/17 09:00 62 23 97 03/13/17 08:58 97 03/13/17 08:00 Room Air 03/13/17 08:00 98.5 03/13/17 08:00 100 03/13/17 08:00 56 21 145/68 (93) 03/13/17 04:00 Room Air 91 03/13/17 04:00 59 03/13/17 04:00 97.9 59 18 133/63 (86) 91 03/13/17 03:43 16 03/13/17 00:00 64 03/13/17 00:00 Room Air 95 03/13/17 00:00 98.7 64 16 114/58 (76) 95 03/12/17 20:00 61 03/12/17 20:00 98.4 61 18 158/65 (96) 97 03/12/17 20:00 Room Air 97 03/12/17 19:28 95 03/12/17 16:00 55 03/12/17 16:00 98.7 55 20 154/68 (96) 96 03/12/17 16:00 Room Air 96 03/12/17 14:00 60 03/12/17 13:07 58 140/63 (88) 97 03/12/17 13:07 58 (Alexandria Alvarado) -: 03/12/17 0555 03/12/17 0555 Imaging Last 72 hours Impressions Brain MRI 03/12/17 0000 Signed Impressions: Service Date/Time: February 10:26 - CONCLUSION: 1. No acute intracranial abnormality. 2. Atrophy. 3. Ventriculomegaly. This could relate to more centralized forms of atrophy but normal pressure hydrocephaly can have a similar appearance. Ramsey Guzman Jr., MD Abdomen Ultrasound 03/12/17 0000 Signed Impressions: Service Date/Time: February 17:01 - CONCLUSION: 1. Gallstone 2. Minimally complex 2 cm cyst in the left lobe of the liver. Juanito Calero MD Tubes & Lines: Gastelum (Alexandria Alvarado [employer]) Physical Exam General Appearance: Well Developed, No Acute Distress, Comfortable, Malnourished (Christiano,Alexandria [employer]) Eyes Eye Exam: Pupils Equal (Christiano,Alexandria [employer]) Throat Throat Exam: Oral Mucosa [place] & Moist (Christiano,Alexandria [employer]) Neck Neck Exam: Neck Supple (Christiano,Alexandria [employer]) Pulmonary Resp Exam: Clear Bilaterally, Breath Sounds Equal (Christiano,Alexandria [employer]) Cardiology CV Exam: Regular, Good Perfusion (Christiano,Alexandria [employer]) Gastrointestinal/Abdomen GI Exam: Soft, Non-Tender, Bowel Sounds Present (Christiano,Alexandria [employer]) Genitourinary Exam: Flank Non-Tender (ChristianoAlexandria [employer]) Musculoskeletal MS Exam: Joints Intact, Normal Tone, Unable to Ambulate (Christiano,Alexandria [employer]) Integumentary Skin Exam: Clear, Warm, Dry, Intact (ChristianoAlexandria B[employer]) Extremeties Extremities Exam: No Edema, Pedal Pulses Palpable (ChristianoAlexandria B. [employer]) Neurologic Neuro Exam: Alert, Awake, Oriented, Speech Clear, Moving All Extremities (Christiano,Alexandria [employer]) Psychiatric Psych Exam: Appropriate Responses (ChristianoAlexandria B[employer]) Assessment/Plan Discussed Condition With: Patient Assessment Summary: EVANGELISTA/Acute Renal Failure Electrolyte Assessment: Hypokalemia Problem List: (1) EVANGELISTA (acute kidney injury) ICD Codes: N17.9 - Acute kidney failure, unspecified Plan: EVANGELISTA from pre-renal azotemia due to dehydration renal function improved, good urine output okay to remove gastelum catheter awaiting repeat BMP to evaluate hypokalemia he is on iVF, / NS with 30 KCL @ 75 cc/hr follow fluid status; encourage oral hydration replace potassium as needed avoid nephrotoxic substances, (2) Hypokalemia ICD Codes: E87.6 - Hypokalemia Plan: Possibly from renal losses due to diuretic use. currently improving, continue to replace 24 hour urine for potassium is not high, suggesting no renal K wasting (3) Dehydration ICD Codes: E86.0 - Dehydration Status: Acute Plan: Improving (4) Muscle spasm ICD Codes: M62.838 - Other muscle spasm Status: Acute Plan: Unclear etiology. Not seizure activity per EEG (5) Acute encephalopathy ICD Codes: G93.40 - Encephalopathy, unspecified Status: Acute Plan: Neurology following. EEG negative for seizures; Etiology is unclear at this time. he is on Aricept and Zoloft; also on muscle relaxers that may cause altered mental status; he is sleepy today (Alexandria Alvarado) Plan patient was seen and examined. Potassium and creatinine have improved. We will sign off at this time. (Timoteo Kelly MD) Alexandria Alvarado Mar 13, 2017 12:12 Timoteo Kelly MD Mar 13, 2017 15:22
[2017-03-13 13:21] LABS: BICARBONATE 26.3 MEQ/L (21.0-32.0); POTASSIUM 3.9 MEQ/L (3.5-5.1)
[2017-03-13] MEDS: POTASSIUM CHLORIDE INJ 20 MEQ, SODIUM CHLORIDE 23.4% INJ 38.5 MEQ in WATER STERILE FOR ... IV SCH (14:03)
[2017-03-13] MEDS: metroNIDAZOLE 500 MG TAB PO SCH ×2 (17:44→18:00)
--- NOTE | 2017-03-13 20:16 | HHI.PR ---
Subjective Remarks No acute reports from nursing. Patient himself says he has burning with urination while he has a catheter in him. When asked about his abdominal pain, says it is unchanged, says he is having lots of diarrhea. Also says that his buttocks hurts when he has diarrhea, but isn't clarified that it is his pressure ulcer which hurts C. difficile returned positive. MRI also returned which showed some ventriculomegaly, neurology concluded for the patient to be monitored for this outpatient. When the patient is asked about rehabilitation options, he says he is willing to go to an inpatient facility. Objective Vital Signs Date Time Temp Pulse Resp B/P (MAP) Pulse Ox O2 Delivery O2 Flow Rate FiO2 03/13/17 18:00 63 29 159/70 (99) 95 03/13/17 17:00 63 03/13/17 17:00 63 27 94 03/13/17 16:01 64 03/13/17 16:01 64 29 149/67 (94) 95 03/13/17 16:00 Room Air 03/13/17 16:00 63 03/13/17 16:00 63 26 94 03/13/17 16:00 98.6 03/13/17 13:00 64 26 95 03/13/17 13:00 64 03/13/17 12:00 Room Air 03/13/17 12:00 59 22 131/68 (89) 93 03/13/17 12:00 59 03/13/17 12:00 99.0 03/13/17 10:00 66 25 96 03/13/17 09:00 62 23 97 03/13/17 08:58 97 03/13/17 08:00 Room Air 03/13/17 08:00 98.5 03/13/17 08:00 100 03/13/17 08:00 56 21 145/68 (93) 03/13/17 04:00 Room Air 91 03/13/17 04:00 59 03/13/17 04:00 97.9 59 18 133/63 (86) 91 03/13/17 03:43 16 03/13/17 00:00 64 03/13/17 00:00 Room Air 95 03/13/17 00:00 98.7 64 16 114/58 (76) 95 I/O 8/31/17 803/12/17 03/13/17 03/13/17 03/13/17 07:00 15:00 23:00 07:00 15:00 23:00 Intake Total 433 ml 1067 ml 980 ml 240 ml 500 ml 1200 ml Output Total 650 ml 600 ml 700 ml 850 ml Balance -217 ml 1067 ml 380 ml -460 ml 500 ml 350 ml Intake Oral 980 ml 240 ml 1200 ml IV Total 433 ml 1067 ml 500 ml Output Urine Total 650 ml 600 ml 700 ml 850 ml # Bowel Movements 0 3 6 6 Result Diagram: 03/12/17 0555 03/13/17 1150 Objective Remarks GENERAL: Lying in bed, no acute distress, awake CARDIOVASCULAR: Muffled heart sounds GASTROINTESTINAL: Moderate tenderness to palpation in epigastrium, nondistended , soft Neuro: No facial droop noted, alert and oriented 3 A/P Problem List: (1) Low back pain ICD Code: M54.5 - Low back pain Status: Acute (2) Hypokalemia ICD Code: E87.6 - Hypokalemia (3) Intractable back pain ICD Code: M54.9 - Dorsalgia, unspecified (4) Renal stone ICD Code: N20.0 - Calculus of kidney (5) Acute encephalopathy ICD Code: G93.40 - Encephalopathy, unspecified Status: Acute (6) Muscle spasm ICD Code: M62.838 - Other muscle spasm Status: Acute Assessment and Plan 2010 History of subdural hematoma Tremors - medication induced morphine/Zofran rule out serotonin syndrome New onset seizures - Keppra 500 mg IV twice a day/as needed benzodiazepine -EEG negative, brain MRI shows ventriculomegaly, follow-up with neurology outpatient, currently seizure free Back pain and muscle spasms -Currently Flexeril 5 mg 3 times a day. Continue for now. -Discontinuing morphine, only oral pain medications Abd tenderness -Gallbladder ultrasound hepatic ultrasound are unremarkable, C. 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
[2017-03-13] MEDS: ATORVASTATIN 80 MG TAB PO SCH (20:57)
[2017-03-13] MEDS: DONEPEZIL HCL 5 MG TAB PO SCH (20:57)
[2017-03-14] VITALS (8 sets, daily range): BP systolic 115–162; BP diastolic 57–79; PULSE 59–78; RESP 16–20; TEMP 97.5–99.2; O2SAT 95–96
[2017-03-14] MEDS: ACETAMINOPHEN/HYDROcodone 325 MG/5 MG TAB PO PRN ×3 (01:04→16:40)
[2017-03-14] MEDS: SODIUM CHLORIDE 0.9% FLUSH 10 ML FLUSH IV FLUSH SCH ×2 (08:29→21:00)
[2017-03-14] MEDS: ENOXAPARIN SODIUM 40 MG/0.4 ML SYRINGE SQ SCH (08:29)
[2017-03-14] MEDS: SERTRALINE HCL 100 MG TAB PO SCH (08:29)
[2017-03-14] MEDS: BACLOFEN 10 MG TAB PO SCH ×3 (08:29→16:40)
[2017-03-14] MEDS: metroNIDAZOLE 500 MG TAB PO SCH ×3 (08:29→16:40)
[2017-03-14] MEDS: DOCUSATE SODIUM 50 MG/SENNA 8.6 MG TAB PO SCH ×2 (08:29→21:00)
[2017-03-14] MEDS: CARVEDILOL 3.125 MG TAB PO SCH ×3 (08:29→22:21)
[2017-03-14] MEDS: PILOCARPINE HCL 4% EACH EYE SCH ×2 (08:30→22:22)
[2017-03-14] MEDS: DORZOLAMIDE 2% OPTH SOLN 200 DROP/10 ML BTLO EACH EYE SCH ×3 (08:30→16:41)
[2017-03-14 14:41] LABS: BACTERIA, URINE RARE /hpf; BLOOD, URINE TRACE (NEG); COMMENT (UR) CATH-CULTURE IND; CULTURE IF INDICATED CATH CULTURE IND; GLUCOSE,URINE NEG (NEG); KETONE, URINE TRACE mg/dL (NEG); MUCUS URINE FEW /lpf (OCC); NITRITE,URINE NEG (NEG); PH, URINE 7.5 (5.0-8.5); SQUAMOUS EPITHELIAL CELL URINE <1 /hpf (0-5); URINE COLOR YELLOW (YELLW/STRAW)
--- NOTE | 2017-03-14 14:54 | HHI.PR ---
Subjective Remarks No acute reports from nursing. For no clear reason, UA was not collected yesterday despite orders, however Nelson catheter was discontinued as requested . . But he also states that he has a new cough and his feet hurt from his gout , denies fevers. He does clarify that for long-term living he would like to go back with his family friends but he is willing to undergo rehabilitation prior to that after hospital discharge. Objective Vital Signs Date Time Temp Pulse Resp B/P (MAP) Pulse Ox O2 Delivery O2 Flow Rate FiO2 03/14/17 12:01 Room Air 03/14/17 12:00 99.2 67 16 125/79 (94) 96 03/14/17 10:24 60 03/14/17 08:20 Room Air 03/14/17 08:00 98.6 59 18 142/63 (89) 96 03/14/17 05:57 99.2 63 20 136/60 (85) 96 03/14/17 00:00 99.1 64 20 162/71 (101) 95 03/13/17 20:00 65 03/13/17 20:00 97.9 65 20 159/70 (99) 95 03/13/17 20:00 Room Air 95 03/13/17 18:00 63 29 159/70 (99) 95 03/13/17 17:00 63 03/13/17 17:00 63 27 94 03/13/17 16:01 64 03/13/17 16:01 64 29 149/67 (94) 95 03/13/17 16:00 Room Air 03/13/17 16:00 63 03/13/17 16:00 63 26 94 03/13/17 16:00 98.6 I/O 03/13/17 03/13/17 03/13/17 03/14/17 03/14/17 03/14/17 07:00 15:00 23:00 07:00 15:00 23:00 Intake Total 240 ml 500 ml 1200 ml 120 ml Output Total 700 ml 850 ml Balance -460 ml 500 ml 350 ml 120 ml Intake Oral 240 ml 1200 ml 120 ml IV Total 500 ml Output Urine Total 700 ml 850 ml # Voids 3 # Bowel Movements 6 6 2 Result Diagram: 03/12/17 0555 03/13/17 1150 Objective Remarks GENERAL: Lying in bed, no acute distress, awake CARDIOVASCULAR: Muffled heart sounds Resp: course breath sounds BL GASTROINTESTINAL: improved tenderness to palpation in epigastrium, nondistended , soft Neuro: No facial droop noted, alert and oriented 3 MSK: no erick erythema noted but TTP on base of first MTP on right foot A/P Problem List: (1) Low back pain ICD Code: M54.5 - Low back pain Status: Acute (2) Hypokalemia ICD Code: E87.6 - Hypokalemia (3) Intractable back pain ICD Code: M54.9 - Dorsalgia, unspecified (4) Renal stone ICD Code: N20.0 - Calculus of kidney (5) Acute encephalopathy ICD Code: G93.40 - Encephalopathy, unspecified Status: Acute (6) Muscle spasm ICD Code: M62.838 - Other muscle spasm Status: Acute Assessment and Plan 2010 History of subdural hematoma New onset seizures - Keppra 500 mg IV twice a day/as needed benzodiazepine -EEG negative, brain MRI shows ventriculomegaly, follow-up with neurology outpatient, currently seizure free Back pain and muscle spasms -Currently Flexeril 5 mg 3 times a day. Continue for now. -oral pain medications Abd tenderness -Gallbladder ultrasound hepatic ultrasound are unremarkable, -C.diff positive C. 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%/HTN -Continue Coreg 3.2 mg by mouth twice a day -lisinopril ARMAND CPAP at night dysuria RN today has sent down UA, UA reviewed, no culture indicated but has RBC, will consider after speaking w/ pt tomorrow on 03/15 gout starting allopurinol given pt's hx of this, get uric acid level Hypothyroidism Continue Levoxyl 75 mg by mouth daily History of prostate cancer Spinal stenosis PT assessment still pending, OT deems that the patient needs to be at a rehabilitation facility upon discharge Prophylaxis - GI - famotidine - DVT - Lovenox D/C towards rehab placement when stable Berlin Luna MD Mar 14, 2017 14:54
--- NOTE | 2017-03-14 16:27 | RADRPT ---
EXAM DATE/TIME: 03/14/2017 16:11 [facility] COMPARISON: No previous studies available for comparison. INDICATIONS : Cough MEDICAL HISTORY : Myocardial infarction. Congestive heart failure. Hypercholesterolemia. CataractsGlaucome. Dementia. C VA. Respiratory. Ulcer. Kidney stones. Prostate cancer. SURGICAL HISTORY : Eye surgery. Oral surgery. Brain shunt. Heart stents. Prostatectomy. ENCOUNTER: Initial ACUITY: 4 - 6 days PAIN SCORE: 0/10 LOCATION: Bilateral chest FINDINGS: PA and lateral views of the chest demonstrate the lungs to be symmetrically aerated without evidence of mass, infiltrate or effusion. The cardiomediastinal contours are unremarkable. Osseous structure s are intact. CONCLUSION: No acute disease. Emery Hector MD FACR on March 14, 2017 at 16:25 Board Certified Radiologist. This report was verified electronically.
[2017-03-14] MEDS: ALLOPURINOL 100 MG TAB PO SCH (16:40)
[2017-03-14] MEDS: ATORVASTATIN 80 MG TAB PO SCH (22:20)
[2017-03-14] MEDS: DONEPEZIL HCL 5 MG TAB PO SCH (22:21)
[2017-03-15] MEDS: POTASSIUM CHLORIDE INJ 20 MEQ, SODIUM CHLORIDE 23.4% INJ 38.5 MEQ in WATER STERILE FOR ... IV SCH ×2 (00:41→18:02)
[2017-03-15 01:19] VITALS: BP 115/65; PULSE 69; RESP 17; TEMP 97.9; O2SAT 98
[2017-03-15 04:33] VITALS: BP 168/70; PULSE 65; RESP 19; TEMP 98.6; O2SAT 96
[2017-03-15 07:33] VITALS: BP 163/72; PULSE 72; RESP 20; TEMP 98.5; O2SAT 96
[2017-03-15] MEDS: DOCUSATE SODIUM 50 MG/SENNA 8.6 MG TAB PO SCH ×2 (09:00→21:00)
[2017-03-15] MEDS: SODIUM CHLORIDE 0.9% FLUSH 10 ML FLUSH IV FLUSH SCH ×2 (09:00→21:00)
[2017-03-15] MEDS: metroNIDAZOLE 500 MG TAB PO SCH ×3 (09:29→18:02)
[2017-03-15] MEDS: SERTRALINE HCL 100 MG TAB PO SCH (09:29)
[2017-03-15] MEDS: ALLOPURINOL 100 MG TAB PO SCH (09:29)
[2017-03-15] MEDS: CARVEDILOL 3.125 MG TAB PO SCH ×2 (09:29→21:53)
[2017-03-15] MEDS: BACLOFEN 10 MG TAB PO SCH ×3 (09:30→18:02)
[2017-03-15] MEDS: ENOXAPARIN SODIUM 40 MG/0.4 ML SYRINGE SQ SCH (09:31)
[2017-03-15] MEDS: PILOCARPINE HCL 4% EACH EYE SCH ×2 (09:32→21:55)
[2017-03-15] MEDS: DORZOLAMIDE 2% OPTH SOLN 200 DROP/10 ML BTLO EACH EYE SCH ×3 (09:32→18:02)
[2017-03-15 12:27] VITALS: BP 128/62; PULSE 64; RESP 20; TEMP 98.3; O2SAT 96
[2017-03-15] MEDS: ACETAMINOPHEN/HYDROcodone 325 MG/5 MG TAB PO PRN ×2 (13:12→21:53)
[2017-03-15] MEDS ORDERED: AMPICILLIN 500 MG CAP PO SCH (19:45)
--- NOTE | 2017-03-15 20:15 | HHI.PR ---
Subjective Remarks Patient says his diarrhea continues to improve. Still has dysuria. Says his back pain is somewhat improved since admission. Denies any fevers or chills, denies any nausea. I reviewed the UA which shows that he is growing enterococcus. Sensitivities are pending still. My independent review of the chest x-ray that I ordered yesterday for the patient's cough shows no acute active disease Objective Vital Signs Date Time Temp Pulse Resp B/P (MAP) Pulse Ox O2 Delivery O2 Flow Rate FiO2 03/15/17 16:00 Room Air 03/15/17 12:27 98.3 64 20 128/62 (84) 96 03/15/17 08:00 Room Air 03/15/17 07:33 98.5 72 20 163/72 (102) 96 03/15/17 04:33 98.6 65 19 168/70 (102) 96 03/15/17 01:19 97.9 69 17 115/65 (82) 98 03/14/17 22:40 Room Air 03/14/17 20:53 97.5 64 18 115/57 (76) 96 I/O 03/14/17 03/14/17 03/14/17 03/15/17 03/15/17 03/15/17 06:59 14:59 22:59 06:59 14:59 22:59 Intake Total 120 ml Balance 120 ml Intake Oral 120 ml # Voids 3 # Bowel Movements 2 2 1 Result Diagram: 03/12/17 0555 03/13/17 1150 Objective Remarks GENERAL: Lying in bed, no acute distress, awake CARDIOVASCULAR: Muffled heart sounds Resp: course breath sounds BL GASTROINTESTINAL: Minimal tenderness to palpation diffusely over her abdomen, otherwise soft and nontender, no rebound no guarding A/P Problem List: (1) Low back pain ICD Code: M54.5 - Low back pain Status: Acute (2) Hypokalemia ICD Code: E87.6 - Hypokalemia (3) Intractable back pain ICD Code: M54.9 - Dorsalgia, unspecified (4) Renal stone ICD Code: N20.0 - Calculus of kidney (5) Acute encephalopathy ICD Code: G93.40 - Encephalopathy, unspecified Status: Acute (6) Muscle spasm ICD Code: M62.838 - Other muscle spasm Status: Acute Assessment and Plan 2010 History of subdural hematoma New onset seizures - Keppra 500 mg IV twice a day/as needed benzodiazepine -EEG negative, brain MRI shows ventriculomegaly, follow-up with neurology outpatient, currently seizure free Back pain and muscle spasms -Currently Flexeril 5 mg 3 times a day. Continue for now. -oral pain medications Abd tenderness -Gallbladder ultrasound hepatic ultrasound are unremarkable, -C.diff positive -Enterococcal bacteriuria C. difficile returned positive -Flagyl day 09/23 Enterococcal bacteriuria - Despite the patient's back pain, with him being afebrile all this time (on only metronidazole for the C. 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%/HTN -Continue Coreg 3.2 mg by mouth twice a day -lisinopril ARMAND CPAP at night dysuria RN today has sent down UA, UA reviewed, no culture indicated but has RBC, will consider after speaking w/ pt tomorrow on 03/15 gout allopurinol given pt's hx of this, get uric acid level Hypothyroidism Continue Levoxyl 75 mg by mouth daily History of prostate cancer Spinal stenosis PT assessment still pending, OT deems that the patient needs to be at a rehabilitation facility upon discharge Prophylaxis - GI - famotidine - DVT - Lovenox D/C towards rehab placement hopefully tomorrow if diarrhea is well controlled Beriln Luna MD Mar 15, 2017 20:15
[2017-03-15 21:15] VITALS: BP 158/67; PULSE 63; RESP 20; TEMP 98; O2SAT 96
[2017-03-15] MEDS: AMOXICILLIN (TRIHYDRATE) 500 MG CAP PO SCH (21:52)
[2017-03-15] MEDS: ATORVASTATIN 80 MG TAB PO SCH (21:53)
[2017-03-15] MEDS: DONEPEZIL HCL 5 MG TAB PO SCH (21:53)
[2017-03-16] VITALS (7 sets, daily range): BP systolic 119–145; BP diastolic 58–65; PULSE 66–74; RESP 19–20; TEMP 97.8–98.6; O2SAT 95–98
[2017-03-16] MEDS: AMOXICILLIN (TRIHYDRATE) 500 MG CAP PO SCH ×3 (05:42→22:57)
[2017-03-16] MEDS: DOCUSATE SODIUM 50 MG/SENNA 8.6 MG TAB PO SCH ×2 (09:00→21:00)
[2017-03-16] MEDS: SODIUM CHLORIDE 0.9% FLUSH 10 ML FLUSH IV FLUSH SCH ×2 (09:19→21:00)
[2017-03-16] MEDS: DORZOLAMIDE 2% OPTH SOLN 200 DROP/10 ML BTLO EACH EYE SCH ×3 (09:19→17:09)
[2017-03-16] MEDS: PILOCARPINE HCL 4% EACH EYE SCH ×2 (09:19→22:58)
[2017-03-16] MEDS: metroNIDAZOLE 500 MG TAB PO SCH ×3 (09:20→17:09)
[2017-03-16] MEDS: SERTRALINE HCL 100 MG TAB PO SCH (09:20)
[2017-03-16] MEDS: CARVEDILOL 3.125 MG TAB PO SCH ×2 (09:20→22:57)
[2017-03-16] MEDS: ENOXAPARIN SODIUM 40 MG/0.4 ML SYRINGE SQ SCH (09:20)
[2017-03-16] MEDS: BACLOFEN 10 MG TAB PO SCH ×3 (09:20→17:09)
[2017-03-16] MEDS: ALLOPURINOL 100 MG TAB PO SCH (09:20)
--- NOTE | 2017-03-16 12:50 | HHI.PR ---
Subjective Remarks When asked about his diarrhea, patient says he still has it, says that the nurses told him his stool appeared more formed. One asked nursing, they say it looks loose but she says this is the first day she is on. Apparently the patient had 6 bowel movements yesterday, has had about 2-3 this morning before noon. He shouldn't says his dysuria still persists. Also nursing reported that patient was itching is back with apparent red spots noted there. Patient says he hasn't gotten out of bed with therapy and days, therapy states that for some reason the order for therapy did not carry through since patient was transferred to this floor. Objective Vital Signs Date Time Temp Pulse Resp B/P (MAP) Pulse Ox O2 Delivery O2 Flow Rate FiO2 03/16/17 12:15 97.9 66 20 121/58 (79) 98 03/16/17 08:00 67 03/16/17 05:11 97.8 67 20 119/59 (79) 96 03/16/17 00:59 98.5 67 20 145/65 (91) 96 03/16/17 00:30 Room Air 03/15/17 21:15 98.0 63 20 158/67 (97) 96 03/15/17 16:00 Room Air I/O 03/15/17 03/15/17 03/15/17 03/16/17 03/16/17 03/16/17 07:00 15:00 23:00 07:00 15:00 23:00 Output Total 100 ml Balance -100 ml Output Urine Total 100 ml # Voids 3 # Bowel Movements 1 4 Result Diagram: 03/12/17 0555 03/13/17 1150 Objective Remarks GENERAL: Lying in bed, no acute distress, awake Resp: course breath sounds BL GASTROINTESTINAL: No tenderness to palpation over abdomen, soft, nondistended A/P Problem List: (1) Low back pain ICD Code: M54.5 - Low back pain Status: Acute (2) Hypokalemia ICD Code: E87.6 - Hypokalemia (3) Intractable back pain ICD Code: M54.9 - Dorsalgia, unspecified (4) Renal stone ICD Code: N20.0 - Calculus of kidney (5) Acute encephalopathy ICD Code: G93.40 - Encephalopathy, unspecified Status: Acute (6) Muscle spasm ICD Code: M62.838 - Other muscle spasm Status: Acute Assessment and Plan 2010 History of subdural hematoma Encephalopathy - resolved -EEG negative, dc'd off of Keppra by neuorlogy, brain MRI shows ventriculomegaly , follow-up with neurology outpatient, currently mentation intact Back pain and muscle spasms -Currently Flexeril 5 mg 3 times a day. Continue for now. -oral pain medications Abd tenderness - improved -C.diff positive -Enterococcal bacteriuria C. difficile returned positive -Flagyl day 10/24 Enterococcal bacteriuria - Despite the patient's back pain, with him being afebrile all this time (on only metronidazole for the C. difficile) with no systemic symptoms of nausea or vomiting, I feel that this is simply enterococcal cystitis and not pyelonephritis, ampicillin started empirically yesterday, still awaiting sensitivities. 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 OT deems that the patient needs to be at a rehabilitation facility upon discharge Prophylaxis - GI - famotidine - DVT - Lovenox D/C towards rehab placement hopefully tomorrow given insurance companies are close today with holiday, hopeful discharge tomorrow pending symptom stability and sensitivities returning for patient's enterococcal cystitis. Berlin Luna MD Mar 16, 2017 12:50
[2017-03-16 13:41] LABS: POTASSIUM 4.7 MEQ/L (3.5-5.1)
[2017-03-16] MEDS: POTASSIUM CHLORIDE INJ 20 MEQ, SODIUM CHLORIDE 23.4% INJ 38.5 MEQ in WATER STERILE FOR ... IV SCH (13:51)
[2017-03-16] MEDS: ACETAMINOPHEN/HYDROcodone 325 MG/5 MG TAB PO PRN ×2 (18:37→22:57)
[2017-03-16] MEDS: ATORVASTATIN 80 MG TAB PO SCH (22:58)
[2017-03-16] MEDS: DONEPEZIL HCL 5 MG TAB PO SCH (22:58)
[2017-03-17] VITALS (8 sets, daily range): BP systolic 115–134; BP diastolic 51–66; PULSE 62–83; RESP 17–22; TEMP 97.4–98.8; O2SAT 95–99
[2017-03-17] MEDS: AMOXICILLIN (TRIHYDRATE) 500 MG CAP PO SCH ×2 (05:06→12:27)
--- NOTE | 2017-03-17 08:12 | HHI.PR ---
Review/Management Diagnosis/Plan: (1) Acute encephalopathy ICD Codes: G93.40 - Encephalopathy, unspecified Status: Acute Plan: confusion and myoclonus etiology: uremia, hypokalemia vs serotonin syndrome myoclonus resolved recs neuro significantly improved no driving d/c planning- home with p.t. f/u outpatient with us in 2 weeks [phone] (2) Dementia ICD Codes: F03.90 - Unspecified dementia without behavioral disturbance Status: Chronic Plan: possible [facility]ci on aricept also on aspirin/plavix (3) Acute renal failure ICD Codes: N17.9 - Acute kidney failure, unspecified Status: Acute Plan: renal team following (4) Dehydration ICD Codes: E86.0 - Dehydration Status: Acute Plan: hydration (5) Renal stone ICD Codes: N20.0 - Calculus of kidney Subjective Subjective Comments No acute events reported No headache No chest pain No dyspnea Active Medications Current Medications Medications (Trade) Dose Ordered Sig/[place] Route Start Time Stop Time Status Last Admin (NS Flush) 2 ml UNSCH PRN IV FLUSH 03/08/17 22:45 (NS Flush) 2 ml BID IV FLUSH 03/09/17 09:00 03/16/17 09:19 (Tylenol) 650 mg Q6H PRN PO 03/08/17 22:45 (Silverpeak 5-325 Mg) 1 tab Q4H PRN PO 03/08/17 22:45 03/16/17 22:57 (Jojo-Colace) 1 tab BID PO 03/09/17 09:00 03/12/17 20:31 (Milk Of Magnesia Liq) 30 ml Q12H PRN PO 03/08/17 22:45 (Senokot) 17.2 mg Q12H PRN PO 03/08/17 22:45 (Dulcolax Supp) 10 mg DAILY PRN RECTAL 03/08/17 22:45 (Lactulose Liq) 30 ml DAILY PRN PO 03/08/17 22:45 (Coreg) 3.125 mg BID PO 03/09/17 09:00 03/16/17 22:57 (Aricept) 5 mg HS PO 03/09/17 21:00 03/16/17 22:58 (Zoloft) 100 mg DAILY PO 03/09/17 09:00 03/16/17 09:20 (Valium) 10 mg Q8H PRN PO 03/08/17 23:15 03/12/17 05:45 (Lipitor) 80 mg HS PO 03/09/17 21:00 03/16/17 22:58 (Trusopt 2% Opth Soln) 1 drop TID EACH EYE 03/09/17 09:00 03/16/17 17:09 (Pilocar 4% Opth Soln) 1 drop BID EACH EYE 03/09/17 09:00 03/16/17 22:58 Miscellaneous Information Patient in critical care unit? Ass... [id number] .XX 03/09/17 23:45 (Lioresal) 5 mg TID PO 03/10/17 09:00 03/16/17 17:09 (Pill Splitter) 1 ea UNSCH PRN OTHER 03/10/17 09:00 Potassium Chloride 20 meq/ Sodium Chloride 38.5 meq/Sterile Water 1,019.625 ml @ 42 mls/hr Q24H IV 03/12/17 14:00 03/15/17 18:02 (Flagyl) 500 mg TID PO 03/13/17 15:00 03/27/17 14:59 03/16/17 17:09 (Lovenox Inj) 40 mg Q24H SQ 03/14/17 09:00 03/16/17 09:20 (Zyloprim) 100 mg DAILY PO 03/14/17 15:00 03/16/17 09:20 (Trimox) 500 mg Q8HR PO 03/15/17 22:00 03/17/17 05:06 Allergies Allergies Coded Allergies diclofenac (Unverified Allergy, Severe, Edema, 03/08/17) povidone-iodine (Verified Allergy, Severe, 03/08/17) soap (Verified Allergy, Severe, 03/08/17) hydromorphone (Verified Allergy, Unknown, 03/09/17) Review of Systems All other ROS: ROS reviewed as documented in chart Exam I&O / VS Vital Signs Date Time Temp Pulse Resp B/P (MAP) Pulse Ox O2 Delivery O2 Flow Rate FiO2 03/17/17 04:30 98.8 68 22 130/66 (87) 95 03/17/17 00:30 Room Air 03/17/17 00:00 98.1 67 18 129/64 (85) 96 03/16/17 20:30 98.6 74 19 131/62 (85) 95 03/16/17 18:00 72 03/16/17 16:30 98.6 72 20 132/60 (84) 97 03/16/17 12:15 97.9 66 20 121/58 (79) 98 General: Alert and Oriented Eye: EOMI Respiratory: Non-labored respirations Cardiology: Normal rate Neurologic: Normal sensory, Normal motor, No focal defects, CN II-XII intact Exam Comments alert, better attention, ox 3, humorous, sitting up, eating breakfast, follows, eomi, vff, che to gravity, no asterixis in daisha ue, cerebellar/gait testing limited 2/2 fall risk Objective Micro and Labs Laboratory Tests Test 03/16/17 08:47 Blood Urea Nitrogen 16 Creatinine 0.85 Random Glucose 102 Calcium Level 8.6 Sodium Level 139 Potassium Level 4.7 Chloride Level 109 Carbon Dioxide Level 21.0 Anion Gap 9 Estimat Glomerular Filtration Rate 86 Uric Acid 4.0 Date/Time Source Procedure Growth Status 03/14/17 13:45 Urine Clean Catch Urine Culture - Final Enterococcus Faecalis Complete Problem Qualifiers (1) Acute renal failure: Qualified Codes: N17.9 - Acute kidney failure, unspecified Javed Carr MD Mar 17, 2017 08:12
[2017-03-17] MEDS: SERTRALINE HCL 100 MG TAB PO SCH (09:39)
[2017-03-17] MEDS: ALLOPURINOL 100 MG TAB PO SCH (09:39)
[2017-03-17] MEDS: metroNIDAZOLE 500 MG TAB PO SCH ×2 (09:39→12:27)
[2017-03-17] MEDS: CARVEDILOL 3.125 MG TAB PO SCH ×2 (09:39→21:22)
[2017-03-17] MEDS: DOCUSATE SODIUM 50 MG/SENNA 8.6 MG TAB PO SCH ×2 (09:40→21:00)
[2017-03-17] MEDS: SODIUM CHLORIDE 0.9% FLUSH 10 ML FLUSH IV FLUSH SCH ×2 (09:40→21:23)
[2017-03-17] MEDS: BACLOFEN 10 MG TAB PO SCH ×3 (09:40→17:00)
[2017-03-17] MEDS: ENOXAPARIN SODIUM 40 MG/0.4 ML SYRINGE SQ SCH (09:40)
[2017-03-17] MEDS: DORZOLAMIDE 2% OPTH SOLN 200 DROP/10 ML BTLO EACH EYE SCH ×3 (09:44→17:01)
[2017-03-17] MEDS: PILOCARPINE HCL 4% EACH EYE SCH ×2 (09:44→21:24)
[2017-03-17] MEDS: ACETAMINOPHEN/HYDROcodone 325 MG/5 MG TAB PO PRN ×3 (10:08→21:32)
--- NOTE | 2017-03-17 10:28 | HHI.DCPOC ---
Discharge Care Plan Your Health Problems Are: Loss of Movements Additional Problems Bacterial diarrhea, urinary tract infection Goals to Promote Your Health * To prevent worsening of your condition and complications * To maintain your health at the optimal level Directions to Meet Your Goals Take your medications as prescribed Follow your dietary instruction Follow activity as directed Keep your appointments as scheduled Take your immunizations and boosters as scheduled If your symptoms worsen call your PCP, if no PCP go to Urgent Care Center or Emergency Room Smoking is Dangerous to Your Health. Avoid second hand smoke Call the 24-hour hour crisis hotline for domestic abuse at [place] Luna MD Mar 17, 2017 10:28
[2017-03-17] MEDS ORDERED: METR-1 PO (10:39)
[2017-03-17] MEDS ORDERED: DIAZ10 PO (10:39)
[2017-03-17] MEDS ORDERED: BACL10TA PO (10:39)
[2017-03-17] MEDS ORDERED: ATOR40TA16 PO (10:39)
--- NOTE | 2017-03-17 14:00 | PD.ID.CON ---
History of Present Illness Service ID Consult Requested By Dr Esha gil Reason for Consult UTI and C.diff Primary Care Physician No Primary Care Physician Diagnoses: History of Present Illness 81 yo male presented 1 week ago with back pain, quite poor historian A day prior he was seen @ [facility] for maría elena same problem and released from ER on Bacl[place] His CT showed non obstructing kdner stone on the R without hydronephrosis, large partially calcified gallstone and no evidence of cholecystitis and lumbar spondylosis w/ multilevel disk disease worse at L5-S1 w/ severe leftward neural foraminal narrowing. Reports back pain bilateral flank, no radicular pain. He presented afebrile with leukocytosis, WBC 12.9. EVANGELISTA on CKD, with creatinine 3.03, previously 1.35 inJune UA was essentially negative. He developped seizure vs. seizure-like activity and was transferred to the unit eventually he was diagnosed with myoclonus Developped diarrhea on HD # 3 , but per pt had diarrhea before admission He developped diarrhea and tested positivi for C.diff; pt started on flagyl 5 days ago His UA was repeated and it was positive, the enterococci grew outfrom the clute Amoxiccilin was addded Pt apparently reports improved in both # of BMs and consistency of stool, but today he already has had 4 liquid BMs No prior h/o C.diff reported His back pain has not changed and is not controlled Review of Systems Gastrointestinal: COMPLAINS OF: Diarrhea Musculoskeletal: COMPLAINS OF: Joint pain, Back pain, Neck pain Neurologic: COMPLAINS OF: Abnormal gait, Poor Balance Psychiatric: COMPLAINS OF: Confusion Except as stated in HPI: all other systems reviewed are Neg Past Family Social History Allergies: Coded Allergies: diclofenac (Unverified Allergy, Severe, Edema, 03/08/17) povidone-iodine (Verified Allergy, Severe, 03/08/17) soap (Verified Allergy, Severe, 03/08/17) hydromorphone (Verified Allergy, Unknown, 03/09/17) Past Medical History Prostate CA, h/o CVA, HTN, Renal Stones and Sleep Apnea ? 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 Non-Contributory. Social History Negative for alcohol, tobacco or drugs. Physical Exam Vital Signs Vital Signs Date Time Temp Pulse Resp B/P (MAP) Pulse Ox O2 Delivery O2 Flow Rate FiO2 03/17/17 13:01 Room Air 03/17/17 12:22 97.4 82 20 115/51 (72) 96 03/17/17 09:45 Room Air 03/17/17 08:45 98.4 69 17 134/63 (86) 97 03/17/17 04:30 98.8 68 22 130/66 (87) 95 03/17/17 00:30 Room Air 03/17/17 00:00 98.1 67 18 129/64 (85) 96 03/16/17 20:30 98.6 74 19 131/62 (85) 95 03/16/17 18:00 72 03/16/17 16:30 98.6 72 20 132/60 (84) 97 Physical Exam CONSTITUTIONAL/GENERAL: This is an adequately nourished patient, in no apparent distress. TUBES/LINES/DRAINS: SKIN: No jaundice, rashes, or lesions. Skin temperature appropriate. Not diaphoretic. HEAD: Atraumatic. Normocephalic. EYES: Pupils equal and round and reactive. Extraocular motions intact. No scleral icterus. No injection or drainage. Fundi not examined. ENT: Hearing grossly normal. Nose without bleeding or purulent drainage. Oral mucosae without visible erythema, exudates, masses, or lesions. NECK: Trachea midline. Supple, nontender. CARDIOVASCULAR: Regular rate and rhythm without murmurs, gallops, or rubs. No JVD. Peripheral pulses symmetric. RESPIRATORY/CHEST: Symmetric, unlabored respirations. Clear to auscultation. Breath sounds equal bilaterally. No wheezes, rales, or rhonchi. GASTROINTESTINAL: Abdomen soft, non-tender, markedly distended. No hepato- splenomegaly, or palpable masses. No guarding. Bowel sounds present. GENITOURINARY: Without palpable bladder distension. No CVA tenderness MUSCULOSKELETAL: Extremities without clubbing, cyanosis, or edema. No calf tenderness. No mottling or clubbing. BACK : no pain over palpation, pain is worse with any type of movements LYMPHATICS: No palpable cervical or supraclavicular adenopathy. NEUROLOGICAL: Awake and alert. Motor and sensory grossly within normal limits. Follows commands. Clear speech. Memory deficits. Moves all extremities. PSYCHIATRIC: No obvious anxiety/depression. no apparent hallucinations or other psychotic thought process. Laboratory Date/Time Source Procedure Growth Status 03/14/17 13:45 Urine Clean Catch Urine Culture - Final Enterococcus Faecalis Complete Result Diagram: 03/16/17 0847 Imaging Last Impressions Chest X-Ray 03/14/17 0000 Signed Impressions: Service Date/Time: Tuesday, March 14, 2017 16:11 - CONCLUSION: No acute disease. Emery Hector MD FACR Brain MRI 03/12/17 0000 Signed Impressions: Service Date/Time: February 10:26 - CONCLUSION: 1. No acute intracranial abnormality. 2. Atrophy. 3. Ventriculomegaly. This could relate to more centralized forms of atrophy but normal pressure hydrocephaly can have a similar appearance. Ramsey Guzman Jr., MD Abdomen Ultrasound 03/12/17 0000 Signed Impressions: Service Date/Time: February 17:01 - CONCLUSION: 1. Gallstone 2. Minimally complex 2 cm cyst in the left lobe of the liver. Juanito Calero MD Abdomen/Pelvis CT 03/08/171940 Signed Impressions: Service Date/Time: Wednesday, March 08, 2017 22:08 - CONCLUSION: 1. 3 cm calcified gallstone. 2. 2.5 cm low density lesion within the left lobe of the liver near the dome which is indeterminate on this unenhanced examination. MRI of the abdomen with contrast as an outpatient could be performed for further evaluation of this finding if clinically indicated. 3. Uncomplicated sigmoid diverticulosis. 4. Calcified non-obstructing right renal calculi with the larger of the two measuring 3 mm. 5. 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 Jason Spencer MD Renal Ultrasound 03/08/17 0000 Signed Impressions: Service Date/Time: Wednesday, March 08, 2017 22:47 - CONCLUSION: 1. Right kidney is slightly smaller than the left but otherwise no significant abnormality is identified. There is no hydronephrosis. 2. There is a single stone within the gallbladder. Juanito Le MD Assessment and Plan Assessment and Plan Back pain appear muscular skeletal REcurrent UTIs - pt reported to me he was just recently Rxed wityh abx by his GP - he presented with normal UA - repeatn UA was done right after gastelum was d/c'd Enterocccus, sp amoxicicllin x 5 days C.diff - failing flagyl ? R to flagyl vs concurrent systemic abx use ( amocicillin) on going high volume liquid diarrhea REC's: clean catch UA, C+S if repeat UA/clx + will consider retreating depending on the C.diff course dc amoxicillin dc flagyl vancomycin po chk WBC Discussed Condition With r Tatiana Osullivan MD Mar 17, 2017 14:00
--- NOTE | 2017-03-17 15:20 | HHI.PR ---
Subjective Remarks Nursing reports that the patient still having liquid bowel movements. Patient himself says that his burning with urination and is almost gone. Objective Vital Signs Date Time Temp Pulse Resp B/P (MAP) Pulse Ox O2 Delivery O2 Flow Rate FiO2 03/17/17 13:01 Room Air 03/17/17 12:22 97.4 82 20 115/51 (72) 96 03/17/17 09:45 Room Air 03/17/17 08:45 98.4 69 17 134/63 (86) 97 03/17/17 04:30 98.8 68 22 130/66 (87) 95 03/17/17 00:30 Room Air 03/17/17 00:00 98.1 67 18 129/64 (85) 96 03/16/17 20:30 98.6 74 19 131/62 (85) 95 03/16/17 18:00 72 03/16/17 16:30 98.6 72 20 132/60 (84) 97 I/O 03/16/17 03/16/17 03/16/17 03/17/17 03/17/17 03/17/17 07:00 15:00 23:00 07:00 15:00 23:00 Intake Total 336 ml 930 ml 500 ml 361 ml Output Total 100 ml 500 ml 300 ml 350 ml Balance -100 ml 336 ml 430 ml 200 ml 11 ml Intake Oral 930 ml 500 ml 361 ml IV Total 336 ml Output Urine Total 100 ml 500 ml 300 ml 350 ml # Voids 3 1 # Bowel Movements 4 5 1 3 Result Diagram: 03/16/17 0847 Objective Remarks GENERAL: Lying in bed, no acute distress, awake GASTROINTESTINAL: moderate TTP over just right side of epigastrium : no suprapbuic tenderness A/P Problem List: (1) Low back pain ICD Code: M54.5 - Low back pain Status: Chronic (2) Hypokalemia ICD Code: E87.6 - Hypokalemia (3) Intractable back pain ICD Code: M54.9 - Dorsalgia, unspecified (4) Renal stone ICD Code: N20.0 - Calculus of kidney (5) Acute encephalopathy ICD Code: G93.40 - Encephalopathy, unspecified Status: Acute (6) Muscle spasm ICD Code: M62.838 - Other muscle spasm Status: Acute Assessment and Plan 2010 History of subdural hematoma Encephalopathy - resolved -EEG negative, dc'd off of Keppra by neurology, brain MRI shows ventriculomegaly , follow-up with neurology outpatient, currently mentation intact Back pain and muscle spasms -Currently Flexeril 5 mg 3 times a day. Continue for now. -oral pain medications Abd tenderness - improved -C.diff positive -Enterococcal bacteriuria C. 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 OT deems that the patient needs to be at a rehabilitation facility upon discharge Prophylaxis - GI - famotidine - DVT - Lovenox Problem Qualifiers (1) Low back pain: [place] Luna MD Mar 17, 2017 15:20
[2017-03-17] MEDS: VANCOMYCIN 500 MG VIAL (FOR ORAL USE ONLY) PO SCH ×2 (17:00→21:23)
[2017-03-17 17:41] LABS: BACTERIA, URINE MOD /hpf; BLOOD, URINE TRACE (NEG); COMMENT (UR) CULTURE INDICATED; CULTURE IF INDICATED CULTURE INDICATED; GLUCOSE,URINE NEG (NEG); GRANULAR CAST, URINE 4 /lpf; HYALINE CAST, URINE 14 /lpf (RARE); KETONE, URINE 10 mg/dL (NEG); MUCUS URINE FEW /lpf (OCC); NITRITE,URINE NEG (NEG); PH, URINE 5.5 (5.0-8.5); SQUAMOUS EPITHELIAL CELL URINE 1 /hpf (0-5); URINE COLOR DARK-YELLOW (YELLW/STRAW)
[2017-03-17] MEDS: DONEPEZIL HCL 5 MG TAB PO SCH (21:00)
[2017-03-17] MEDS: GABAPENTIN 300 MG CAP PO SCH (21:22)
[2017-03-17] MEDS: DIAZEPAM 10 MG TAB PO PRN (21:22)
[2017-03-17] MEDS: ATORVASTATIN 40 MG TAB PO SCH (21:22)
[2017-03-18] VITALS (9 sets, daily range): BP systolic 115–144; BP diastolic 50–68; PULSE 61–83; RESP 16–20; TEMP 97.3–98.8; O2SAT 95–99
[2017-03-18] MEDS: ACETAMINOPHEN/HYDROcodone 325 MG/5 MG TAB PO PRN ×4 (01:53→17:28)
[2017-03-18] MEDS: BACLOFEN 10 MG TAB PO SCH ×3 (01:53→17:28)
[2017-03-18] MEDS: VANCOMYCIN 500 MG VIAL (FOR ORAL USE ONLY) PO SCH ×4 (02:53→21:36)
[2017-03-18] MEDS: DIAZEPAM 10 MG TAB PO PRN (06:15)
[2017-03-18] MEDS: ENOXAPARIN SODIUM 40 MG/0.4 ML SYRINGE SQ SCH (09:41)
[2017-03-18] MEDS: SERTRALINE HCL 100 MG TAB PO SCH (09:41)
[2017-03-18] MEDS: CARVEDILOL 3.125 MG TAB PO SCH ×2 (09:41→21:37)
[2017-03-18] MEDS: diphenhydrAMINE HCL 2%/ZINC ACETATE 0.1% CREAM 30 APPLIC/30 GM TUBE TOPICAL SCH (09:41)
[2017-03-18] MEDS: DOCUSATE SODIUM 50 MG/SENNA 8.6 MG TAB PO SCH ×2 (09:42→21:00)
[2017-03-18] MEDS: SODIUM CHLORIDE 0.9% FLUSH 10 ML FLUSH IV FLUSH SCH ×2 (09:42→21:38)
[2017-03-18] MEDS: PILOCARPINE HCL 4% EACH EYE SCH ×2 (09:42→21:39)
[2017-03-18] MEDS: DORZOLAMIDE 2% OPTH SOLN 200 DROP/10 ML BTLO EACH EYE SCH ×3 (09:42→17:28)
[2017-03-18 10:44] LABS: BICARBONATE 24.2 MEQ/L (21.0-32.0); POTASSIUM 4.3 MEQ/L (3.5-5.1)
[2017-03-18 10:49] LABS: AUTOMATED NEUTROPHIL # 7.1 TH/MM3 (1.8-7.7); BASOPHIL # 0.2 TH/MM3 (0-0.2); BASOPHIL % 2.1 % (0.0-2.0); EOSINOPHIL # 0.3 TH/MM3 (0-0.4); EOSINOPHIL % 2.8 % (0.0-4.0); HEMATOCRIT 37.4 % (39.0-51.0); HEMO FLAGS DIFF FINAL; LYMPH % 14.5 % (9.0-44.0); LYMPHOCYTE # 1.4 TH/MM3 (1.0-4.8); MEAN CELL VOLUME 91.2 FL (80.0-100.0); MEAN CORPUSCULAR HEMOGLOBIN 30.7 PG (27.0-34.0); MEAN CORPUSCULAR HGB CONC 33.7 % (32.0-36.0); MONO % 6.2 % (0.0-8.0); NEUT % 74.4 % (16.0-70.0); PLATELET COUNT 179 TH/MM3 (150-450); RED CELL DISTRIBUTION WIDTH 14.2 % (11.6-17.2); WHITE BLOOD COUNT 9.6 TH/MM3 (4.0-11.0)
--- NOTE | 2017-03-18 13:16 | HHI.PR ---
Subjective Remarks Nursing reports that the patient still having liquid bowel movements. Patient himself says that his burning with urination is even better today. He says his back pain has been going on for years, says it catches him at times, denies any radiculopathic symptoms down to his feet. Denies ever taking a medication gabapentin or Neurontin. Says that moving around with therapy has helped him a lot but still has the pain. Patient requests if he can put on CPAP at night here since that is what he takes at home, says he feels groggy otherwise. Objective Vital Signs Date Time Temp Pulse Resp B/P (MAP) Pulse Ox O2 Delivery O2 Flow Rate FiO2 03/18/17 12:00 97.8 71 16 116/56 (76) 98 03/18/17 09:16 61 03/18/17 08:01 97.3 62 16 144/61 (88) 95 03/18/17 07:17 18 03/18/17 04:45 98.3 65 18 129/60 (83) 97 03/18/17 00:45 98.8 74 18 120/68 (85) 98 03/18/17 00:03 83 03/17/17 22:30 83 03/17/17 21:30 98.1 71 19 126/61 (82) 99 03/17/17 16:06 62 03/17/17 15:44 97.4 70 18 134/61 (85) 97 I/O 03/17/17 03/17/17 03/17/17 03/18/17 03/18/17 03/18/17 07:00 15:00 23:00 07:00 15:00 23:00 Intake Total 500 ml 361 ml 220 ml Output Total 300 ml 350 ml 650 ml Balance 200 ml 11 ml -430 ml Intake Oral 500 ml 361 ml 220 ml Output Urine Total 300 ml 350 ml 650 ml # Voids 1 3 # Bowel Movements 1 4 1 Result Diagram: 03/18/17 0858 03/18/17 0900 Objective Remarks GENERAL: Sitting up in bed, sleeping but is easily awoken and then becomes alert GASTROINTESTINAL: moderate TTP over just right side of epigastrium : no suprapbuic tenderness A/P Problem List: (1) Low back pain ICD Code: M54.5 - Low back pain Status: Acute (2) Hypokalemia ICD Code: E87.6 - Hypokalemia Status: Resolved (3) Intractable back pain ICD Code: M54.9 - Dorsalgia, unspecified Status: Chronic (4) Renal stone ICD Code: N20.0 - Calculus of kidney (5) Acute encephalopathy ICD Code: G93.40 - Encephalopathy, unspecified Status: Resolved (6) Muscle spasm ICD Code: M62.838 - Other muscle spasm Status: Chronic Assessment and Plan 2010 History of subdural hematoma Encephalopathy - resolved -EEG negative, dc'd off of Keppra by neurology, brain MRI shows ventriculomegaly , follow-up with neurology outpatient, currently mentation intact Back pain and muscle spasms -Currently Flexeril 5 mg 3 times a day. Continue gabapentin and can uptitrate dose -oral pain medications - Likely secondary to spinal stenosis as noted on CT scan report, will order MRI and see if there is any surgical or interventional radiological therapeutic procedures they'll be beneficial to the patient Abd tenderness -C.diff positive -Enterococcal bacteriuria C. 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 OT deems that the patient needs to be at a rehabilitation facility upon discharge. ordering MRI Prophylaxis - GI - famotidine - DVT - Lovenox Problem Qualifiers (1) Low back pain: [place] Luna MD Mar 18, 2017 13:16
--- NOTE | 2017-03-18 16:51 | HHI.IDPN ---
Subjective Subjective Remarks pt is doing better less BMs denies disuria afebrile Antibiotics po vancomycin Allergies: Coded Allergies: diclofenac (Unverified Allergy, Severe, Edema, 03/08/17) povidone-iodine (Verified Allergy, Severe, 03/08/17) soap (Verified Allergy, Severe, 03/08/17) hydromorphone (Verified Allergy, Unknown, 03/09/17) Objective . Vital Signs Date Time Temp Pulse Resp B/P (MAP) Pulse Ox O2 Delivery O2 Flow Rate FiO2 03/18/17 12:00 97.8 71 16 116/56 (76) 98 03/18/17 09:16 61 03/18/17 08:01 97.3 62 16 144/61 (88) 95 03/18/17 07:17 18 03/18/17 04:45 98.3 65 18 129/60 (83) 97 03/18/17 00:45 98.8 74 18 120/68 (85) 98 03/18/17 00:03 83 03/17/17 22:30 83 03/17/17 21:30 98.1 71 19 126/61 (82) 99 03/18/17 03/18/17 03/19/17 14:59 22:59 06:59 Intake Total 580 ml Balance 580 ml Intake Oral 580 ml # Voids 1 # Bowel Movements 2 . Laboratory Tests Test 03/18/17 08:58 White Blood Count 9.6 TH/MM3 Red Blood Count 4.10 MIL/MM3 Hemoglobin 12.6 GM/DL Hematocrit 37.4 % Mean Corpuscular Volume 91.2 FL Mean Corpuscular Hemoglobin 30.7 PG Mean Corpuscular Hemoglobin Concent 33.7 % Red Cell Distribution Width 14.2 % Platelet Count 179 TH/MM3 Mean Platelet Volume 8.3 FL Neutrophils (%) (Auto) 74.4 % Lymphocytes (%) (Auto) 14.5 % Monocytes (%) (Auto) 6.2 % Eosinophils (%) (Auto) 2.8 % Basophils (%) (Auto) 2.1 % Neutrophils # (Auto) 7.1 TH/MM3 Lymphocytes # (Auto) 1.4 TH/MM3 Monocytes # (Auto) 0.6 TH/MM3 Eosinophils # (Auto) 0.3 TH/MM3 Basophils # (Auto) 0.2 TH/MM3 CBC Comment DIFF FINAL Differential Comment Laboratory Tests Test 03/18/17 09:00 Blood Urea Nitrogen 24 MG/DL Creatinine 0.94 MG/DL Random Glucose 101 MG/DL Calcium Level 8.6 MG/DL Sodium Level 139 MEQ/L Potassium Level 4.3 MEQ/L Chloride Level 107 MEQ/L Carbon Dioxide Level 24.2 MEQ/L Anion Gap 8 MEQ/L Estimat Glomerular Filtration Rate 77 ML/MIN Microbiology Date/Time Source Procedure Growth Status 03/17/17 16:20 Urine Clean Catch Urine Culture - Preliminary NO GROWTH IN 24 HOURS. Resulted Imaging Last Impressions Chest X-Ray 03/14/17 0000 Signed Impressions: Service Date/Time: Tuesday, March 14, 2017 16:11 - CONCLUSION: No acute disease. Emery Hector MD FACR Brain MRI 03/12/17 0000 Signed Impressions: Service Date/Time: February 10:26 - CONCLUSION: 1. No acute intracranial abnormality. 2. Atrophy. 3. Ventriculomegaly. This could relate to more centralized forms of atrophy but normal pressure hydrocephaly can have a similar appearance. Ramsey Guzman Jr., MD Abdomen Ultrasound 03/12/17 0000 Signed Impressions: Service Date/Time: February 17:01 - CONCLUSION: 1. Gallstone 2. Minimally complex 2 cm cyst in the left lobe of the liver. Juanito Calero MD Abdomen/Pelvis CT 03/08/171940 Signed Impressions: Service Date/Time: Wednesday, March 08, 2017 22:08 - CONCLUSION: 1. 3 cm calcified gallstone. 2. 2.5 cm low density lesion within the left lobe of the liver near the dome which is indeterminate on this unenhanced examination. MRI of the abdomen with contrast as an outpatient could be performed for further evaluation of this finding if clinically indicated. 3. Uncomplicated sigmoid diverticulosis. 4. Calcified non-obstructing right renal calculi with the larger of the two measuring 3 mm. 5. 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 Jason Spencer MD Renal Ultrasound 03/08/17 0000 Signed Impressions: Service Date/Time: Wednesday, March 08, 2017 22:47 - CONCLUSION: 1. Right kidney is slightly smaller than the left but otherwise no significant abnormality is identified. There is no hydronephrosis. 2. There is a single stone within the gallbladder. Juanito Le MD Physical Exam CONSTITUTIONAL/GENERAL: This is an adequately nourished patient, in no apparent distress. TUBES/LINES/DRAINS: SKIN: No jaundice, rashes, or lesions. Skin temperature appropriate. Not diaphoretic. CARDIOVASCULAR: Regular rate and rhythm without murmurs, gallops, or rubs. No JVD. Peripheral pulses symmetric. RESPIRATORY/CHEST: Symmetric, unlabored respirations. Clear to auscultation. Breath sounds equal bilaterally. GASTROINTESTINAL: Abdomen soft, non-tender, less distended. No hepato- splenomegaly, or palpable masses. No guarding. Bowel sounds slightly hyperactive MUSCULOSKELETAL: Extremities without clubbing, cyanosis, or edema. No calf tenderness. No mottling or clubbing. NEUROLOGICAL: Awake and alert. Motor and sensory grossly within normal limits. Follows commands. Clear speech. Memory deficits. Moves all extremities. PSYCHIATRIC: No obvious anxiety/depression. no apparent hallucinations or other psychotic thought process. Assessment & Plan Remarks Back pain appear muscular skeletal REcurrent UTIs - pt reported to me he was just recently Rxed wityh abx by his GP for UTI - he presented with normal UA - repeatn UA was done right after gastelum was d/c'd UA is positive, clx neg @ 24 hrs Enterocccus, sp amoxicicllin x 5 days C.diff - failing flagyl ? R to flagyl vs concurrent systemic abx use ( amocicillin) - some improvement noted REC's: cont vancomycin po x 14 weeks fu urine clx chk WBC Tatiana Cavazos MD Mar 18, 2017 16:51
--- NOTE | 2017-03-18 17:23 | RADRPT ---
EXAM DATE/TIME: 03/18/2017 15:42 [facility] COMPARISON: No previous studies available for comparison. INDICATIONS : Pain. MEDICAL HISTORY : Prostate Ca, Myocardial infarction. Congestive heart failure. Hypercholesterolemia. Cataracts. SURGICAL HISTORY : Eye surgery. Oral surgery. Brain shunt. Heart stents. Prostatectomy ENCOUNTER: Subsequent ACUITY: 2 weeks PAIN SCORE: 0/10 LOCATION: lumbar TECHNIQUE: Multiplanar multisequence MRI of the lumbar spine was performed without contrast. FINDINGS: The most caudal appearing lumbar vertebra is numbered as L5. VERTEBRAE: Homogeneous signal. Normal alignment. CONUS: Normal level and configuration. There are findings in the visualized lower thoracic spine not completely evaluated on this lumbar spi ne study including broad protrusion and dorsal facet and ligamentous changes at T10-11 and T11-12. Th ere is mild degree of apparent canal stenosis, particularly at T10-11 T12-L1: The thecal sac has a normal diameter. No evidence of disc bulge or protrusion. The neural foramina are patent bilaterally. L1-L2: Slight annular disc bulge with minimal broad superimposed dorsal protrusion. Mild dorsal ligamentous hypertrophy with slight flattening of the thecal sac. Foramina appear adequate. L2-L3: Annular disc bulge with moderate broad superimposed dorsal disc protrusion. Severe bilateral posterio r ligamentous hypertrophy contributes to fairly severe canal stenosis with canal diameter reduced to less than a centimeter. L3-L4: Annular disc bulge and mild broad superimposed dorsal disc protrusion. Pronounced bilateral posterior ligamentous hypertrophy contributes slight concentric canal stenosis. Foramina appear adequate. L4-L5: Annular disc bulge with minimal broad superimposed dorsal protrusion. Bilateral posterior facet arthr opathy, left worse than right with mild associated ligamentous hypertrophy. Canal and foramina appear adequate. L5-S1: Annular disc bulge with minimal broad superimposed dorsal protrusion, mildly eccentric to the left. M oderate bilateral posterior facet arthropathy, left worse than right. Mild asymmetrically left-sided foraminal narrowing. CONCLUSION: Multilevel disc protrusions and spondylitic changes.. Juanito Salinas MD on March 18, 2017 at 17:13 Board Certified Radiologist. This report was verified electronically.
[2017-03-18] MEDS: ATORVASTATIN 40 MG TAB PO SCH (21:37)
[2017-03-18] MEDS: DONEPEZIL HCL 5 MG TAB PO SCH (21:37)
[2017-03-18] MEDS: GABAPENTIN 300 MG CAP PO SCH (21:38)
[2017-03-19] VITALS (9 sets, daily range): BP systolic 106–156; BP diastolic 57–73; PULSE 61–107; RESP 18–20; TEMP 97.4–99.7; O2SAT 92–98
[2017-03-19] MEDS: ACETAMINOPHEN/HYDROcodone 325 MG/5 MG TAB PO PRN (00:30)
[2017-03-19] MEDS: DIAZEPAM 10 MG TAB PO PRN (03:13)
[2017-03-19] MEDS: VANCOMYCIN 500 MG VIAL (FOR ORAL USE ONLY) PO SCH ×4 (03:13→20:45)
[2017-03-19] MEDS: SODIUM CHLORIDE 0.9% FLUSH 10 ML FLUSH IV FLUSH SCH ×2 (08:15→20:51)
[2017-03-19] MEDS: DORZOLAMIDE 2% OPTH SOLN 200 DROP/10 ML BTLO EACH EYE SCH ×3 (08:15→18:09)
[2017-03-19] MEDS: PILOCARPINE HCL 4% EACH EYE SCH ×2 (08:15→20:44)
[2017-03-19] MEDS: BACLOFEN 10 MG TAB PO SCH ×3 (08:15→18:10)
[2017-03-19] MEDS: DOCUSATE SODIUM 50 MG/SENNA 8.6 MG TAB PO SCH ×2 (08:16→20:44)
[2017-03-19] MEDS: SERTRALINE HCL 100 MG TAB PO SCH (08:16)
[2017-03-19] MEDS: CARVEDILOL 3.125 MG TAB PO SCH ×2 (08:16→20:44)
[2017-03-19] MEDS: ENOXAPARIN SODIUM 40 MG/0.4 ML SYRINGE SQ SCH (08:17)
[2017-03-19] MEDS: diphenhydrAMINE HCL 2%/ZINC ACETATE 0.1% CREAM 30 APPLIC/30 GM TUBE TOPICAL SCH (08:18)
--- NOTE | 2017-03-19 08:47 | HHI.PR ---
Subjective Remarks This is a pleasant 81 y/o Male with Prostate Cancer history, CVA, Hypertension, Sleep apnea, brought in to the ER by EMS secondary to complaints of severe back pain. Difficult to obtain history from patient secondary to severity of symptoms. Seen at [facility] for similar complaints on 03/08/17, s/p CT Abd/Pelvis w/ nonobstructing right renal calculous w/o hydronephrosis, large partially calcified gallstone w/ no evidence of cholecystitis and lumbar spondylosis w/ multilevel disk disease worse at L5-S1 w/ severe leftward neural foraminal narrowing. Was Rx Baclofen and d/c'd home. CT Abd/Pelvis w/ 3cm calcified gallstone, 2.5cm low density lesion left lobe liver. Seen with loose stools, Followed by Neurology due to Acute Encephalopathy patient with confusion and myoclonus, secondary to Uremia, Hypokalemia versus serotonin syndrome and Myoclonus Resolved recommended to follow up as outpatient. his muscle pain was related to muscle skeletal issues, he has recurrent UTIs, found Enterococcus status pos Amoxicillin for five days, C Diff failing Flagyl, on Vancomycin by mouth. Seen in his bedroom stable Objective Vital Signs Date Time Temp Pulse Resp B/P (MAP) Pulse Ox O2 Delivery O2 Flow Rate FiO2 03/19/17 08:20 99.0 69 18 122/68 (86) 98 03/19/17 05:27 61 03/19/17 05:23 94 21 03/19/17 05:23 94 21 03/19/17 04:00 97.4 63 20 117/58 (77) 95 03/19/17 00:00 98.2 62 20 106/68 (81) 98 03/18/17 22:20 96 21 03/18/17 20:00 97.4 70 20 115/50 (71) 99 03/18/17 16:37 97.6 69 16 124/61 (82) 97 03/18/17 12:00 97.8 71 16 116/56 (76) 98 03/18/17 09:16 61 I/O 03/18/17 03/18/17 03/18/17 03/19/17 03/19/17 03/19/17 07:00 15:00 23:00 07:00 15:00 23:00 Intake Total 220 ml 580 ml Output Total 650 ml 75 ml Balance -430 ml 580 ml -75 ml Intake Oral 220 ml 580 ml Output Urine Total 650 ml 75 ml # Voids 3 1 1 3 # Bowel Movements 1 2 1 3 Result Diagram: 03/18/17 0858 03/18/17 0900 Imaging Last Impressions Lumbar Spine MRI 03/18/17 0000 Signed Impressions: Service Date/Time: Saturday, March 18, 2017 15:42 - CONCLUSION: Multilevel disc protrusions and spondylitic changes.. Juanito Salinas MD Chest X-Ray 03/14/17 0000 Signed Impressions: Service Date/Time: Tuesday, March 14, 2017 16:11 - CONCLUSION: No acute disease. Emery Hector MD FACR Brain MRI 03/12/17 0000 Signed Impressions: Service Date/Time: February 10:26 - CONCLUSION: 1. No acute intracranial abnormality. 2. Atrophy. 3. Ventriculomegaly. This could relate to more centralized forms of atrophy but normal pressure hydrocephaly can have a similar appearance. Ramsey Guzman Jr., MD Abdomen Ultrasound 03/12/17 0000 Signed Impressions: Service Date/Time: February 17:01 - CONCLUSION: 1. Gallstone 2. Minimally complex 2 cm cyst in the left lobe of the liver. Juanito Calero MD Abdomen/Pelvis CT [id number]/08/[id number] Signed Impressions: Service Date/Time: Wednesday, March 08, 2017 22:08 - CONCLUSION: 1. 3 cm calcified gallstone. 2. 2.5 cm low density lesion within the left lobe of the liver near the dome which is indeterminate on this unenhanced examination. MRI of the abdomen with contrast as an outpatient could be performed for further evaluation of this finding if clinically indicated. 3. Uncomplicated sigmoid diverticulosis. 4. Calcified non-obstructing right renal calculi with the larger of the two measuring 3 mm. 5. 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 Jason Spencer MD Renal Ultrasound 03/08/17 0000 Signed Impressions: Service Date/Time: Wednesday, March 08, 2017 22:47 - CONCLUSION: 1. Right kidney is slightly smaller than the left but otherwise no significant abnormality is identified. There is no hydronephrosis. 2. There is a single stone within the gallbladder. Juanito Le MD Procedures none Other Results Laboratory Tests Test 03/08/17 19:52 03/09/17 18:15 03/10/17 12:45 03/10/17 14:06 Lipase 167 U/L Nasal Screen MRSA (PCR) MRSA NOT DETECTED Urine Random Sodium 46 MEQ/L Urine Random Potassium 6 MEQ/L Urine Random Chloride 56 MEQ/L Blood Gas Puncture Site RT RADIAL Blood Gas Patient Temperature 98.6 Blood Gas HCO3 27 mmol/L Blood Gas Base Excess 2.0 mmol/L Blood Gas Oxygen Saturation 96 % Arterial Blood pH 7.35 Arterial Blood Partial Pressure CO2 50 mmHg Arterial Blood Partial Pressure O2 116 mmHg Arterial Blood Oxygen Content 17.5 Vol % Arterial Blood Carboxyhemoglobin 1.5 % Arterial Blood Methemoglobin 1.1 % Blood Gas Hemoglobin 12.9 G/DL Oxygen Delivery Device NASAL CANNULA Blood Gas Liter Flow 2 L/M Test 03/11/17 19:00 03/11/17 22:38 03/12/17 11:52 03/13/17 02:20 Urine Total Volume 24 Hours 2325 ML Urine Creatinine 24 Hour 1.32 GM/24HR Urine Sodium 24 Hour 170 MEQ/24HR Urine Potassium 24 Hour 35 MEQ/24HR Urine Chloride 24 Hour 223 MEQ/24HR Blood Urea Nitrogen 22 MG/DL Creatinine 1.07 MG/DL Random Glucose 173 MG/DL Albumin 2.2 GM/DL Calcium Level 8.4 MG/DL Phosphorus Level 1.0 MG/DL Magnesium Level 1.7 MG/DL Sodium Level 146 MEQ/L Potassium Level 3.1 MEQ/L Chloride Level 111 MEQ/L Carbon Dioxide Level 27.6 MEQ/L Total Bilirubin 0.4 MG/DL Direct Bilirubin 0.1 MG/DL Indirect Bilirubin 0.3 MG/DL Aspartate Amino Transf (AST/SGOT) 41 U/L Alanine Aminotransferase (ALT/SGPT) 29 U/L Alkaline Phosphatase 70 U/L Total Protein 6.6 GM/DL Stool C. difficile Toxin (PCR) POSITIVE Stl C. difficile Toxin Epiderm 027 PRESUMPTIVE NEGATIVE Test 03/13/17 11:50 03/16/17 08:47 03/17/17 16:20 03/18/17 08:58 Blood Urea Nitrogen 13 MG/DL Creatinine 0.91 MG/DL Random Glucose 138 MG/DL Albumin 1.9 GM/DL Calcium Level 8.2 MG/DL Phosphorus Level 1.5 MG/DL Sodium Level 142 MEQ/L Potassium Level 3.9 MEQ/L Chloride Level 107 MEQ/L Carbon Dioxide Level 26.3 MEQ/L Uric Acid 4.0 MG/DL Urine Color DARK-YELLOW Urine Turbidity HAZY Urine pH 5.5 Urine Specific [place] 1.030 Urine Protein 30 mg/dL Urine Glucose (UA) NEG mg/dL Urine Ketones 10 mg/dL Urine Occult Blood TRACE Urine Nitrite NEG Urine Bilirubin NEG Urine Urobilinogen 2.0 MG/DL Urine Leukocyte Esterase LARGE Urine RBC 5 /hpf Urine WBC 49 /hpf Urine WBC Clumps RARE Urine Squamous Epithelial Cells 1 /hpf Urine Bacteria MOD /hpf Urine Hyaline Casts 14 /lpf Urine Granular Casts 4 /lpf Urine Mucus FEW /lpf Microscopic Urinalysis Comment CULTURE INDICATED White Blood Count 9.6 TH/MM3 Red Blood Count 4.10 MIL/MM3 Hemoglobin 12.6 GM/DL Hematocrit 37.4 % Mean Corpuscular Volume 91.2 FL Mean Corpuscular Hemoglobin 30.7 PG Mean Corpuscular Hemoglobin Concent 33.7 % Red Cell Distribution Width 14.2 % Platelet Count 179 TH/MM3 Mean Platelet Volume 8.3 FL Neutrophils (%) (Auto) 74.4 % Lymphocytes (%) (Auto) 14.5 % Monocytes (%) (Auto) 6.2 % Eosinophils (%) (Auto) 2.8 % Basophils (%) (Auto) 2.1 % Neutrophils # (Auto) 7.1 TH/MM3 Lymphocytes # (Auto) 1.4 TH/MM3 Monocytes # (Auto) 0.6 TH/MM3 Eosinophils # (Auto) 0.3 TH/MM3 Basophils # (Auto) 0.2 TH/MM3 CBC Comment DIFF FINAL Differential Comment Test 03/18/17 09:00 Blood Urea Nitrogen 24 MG/DL Creatinine 0.94 MG/DL Random Glucose 101 MG/DL Calcium Level 8.6 MG/DL Sodium Level 139 MEQ/L Potassium Level 4.3 MEQ/L Chloride Level 107 MEQ/L Carbon Dioxide Level 24.2 MEQ/L Anion Gap 8 MEQ/L Estimat Glomerular Filtration Rate 77 ML/MIN Objective Remarks GENERAL: No acute distress. SKIN: Warm and dry. ENT: No nasal bleeding or discharge. Mucous membranes pink and moist. NECK: Trachea midline. No JVD. CARDIOVASCULAR: Regular rate and rhythm. RESPIRATORY: No accessory muscle use. Clear to auscultation. Breath sounds equal bilaterally. GASTROINTESTINAL: Abdomen soft, non-tender, nondistended. MUSCULOSKELETAL: Extremities without clubbing, cyanosis, or edema. NEUROLOGICAL: Awake and alert. Medications and IVs Current Medications Medications (Trade) Dose Ordered Sig/Severino Route Start Time Stop Time Status Last Admin (NS Flush) 2 ml UNSCH PRN IV FLUSH 03/08/17 22:45 (NS Flush) 2 ml BID IV FLUSH 03/09/17 09:00 03/19/17 08:15 (Tylenol) 650 mg Q6H PRN PO 03/08/17 22:45 ([place] 5-325 Mg) 1 tab Q4H PRN PO 03/08/17 22:45 03/19/17 00:30 (Jojo-Colace) 1 tab BID PO 03/09/17 09:00 03/12/17 20:31 (Milk Of Magnesia Liq) 30 ml Q12H PRN PO 03/08/17 22:45 (Senokot) 17.2 mg Q12H PRN PO 03/08/17 22:45 (Dulcolax Supp) 10 mg DAILY PRN RECTAL 03/08/17 22:45 (Lactulose Liq) 30 ml DAILY PRN PO 03/08/17 22:45 (Coreg) 3.125 mg BID PO 03/09/17 09:00 03/19/17 08:16 (Aricept) 5 mg HS PO 03/09/17 21:00 03/18/17 21:37 (Zoloft) 100 mg DAILY PO 03/09/17 09:00 03/19/17 08:16 (Valium) 10 mg Q8H PRN PO 03/08/17 23:15 03/19/17 03:13 (Trusopt 2% Opth Soln) 1 drop TID EACH EYE 03/09/17 09:00 03/19/17 08:15 (Pilocar 4% Opth Soln) 1 drop BID EACH EYE 03/09/17 09:00 03/19/17 08:15 Miscellaneous Information Patient in critical care unit? Ass... Q361D .XX 03/09/17 23:45 (Lioresal) 5 mg TID PO 03/10/17 09:00 03/19/17 08:15 (Pill Splitter) 1 ea UNSCH PRN OTHER 03/10/17 09:00 (Lovenox Inj) 40 mg Q24H SQ 03/14/17 09:00 03/19/17 08:17 (VANCOMYCIN for oral use only) 125 mg Q6H PO 03/17/17 15:00 03/19/17 08:15 (Neurontin) 300 mg HS PO 03/17/17 21:00 03/18/17 21:38 (Lipitor) 40 mg HS PO 03/17/17 21:00 03/18/17 21:37 (Benadryl 2% Cream) 1 applic DAILY TOPICAL 03/18/17 09:00 03/19/17 08:18 A/P Assessment and Plan 2010 History of subdural hematoma Encephalopathy - resolved -EEG negative, dc'd off of Keppra by neurology, brain MRI shows ventriculomegaly , follow-up with neurology outpatient, currently mentation intact Back pain and muscle spasms -Currently Flexeril 5 mg 3 times a day. Continue gabapentin and can uptitrate dose -oral pain medications - Likely secondary to spinal stenosis as noted on CT scan report, will order MRI and see if there is any surgical or interventional radiological therapeutic procedures they'll be beneficial to the patient Abd tenderness -C.diff positive -Enterococcal bacteriuria C. difficile returned positive -not responding to flagyl, ID consulted, switched to vancomycin, stopping aricept since this could worsen diarrhea Enterococcal bacteriuria - Appreciate ID recs, stopping amoxicillin and see if this helps Dementia -Continues Zoloft 100 mg by mouth daily -stopping aricept since this could be making his diarrhea worse CV: CAD/Dyslipidemia -Continue Plavix 75 mg by mouth daily as indicated -Continue Lipitor 80 mg by mouth daily CHFrEF 40-45%/HTN -Continue Coreg 3.25 mg by mouth twice a day -lisinopril ARMAND CPAP at night foot pain gabapentin qhs Hypothyroidism Continue Levoxyl 75 mg by mouth daily History of prostate cancer Spinal stenosis PT following, MRI of the spine, multilevel disc protrusions and spondylitic changes. Prophylaxis - GI - famotidine - DVT - Lovenox Discharge Planning Once cleared by specialists. Alexandre Horner MD Mar 19, 2017 08:47
[2017-03-19] MEDS: GABAPENTIN 300 MG CAP PO SCH (20:44)
[2017-03-19] MEDS: ATORVASTATIN 40 MG TAB PO SCH (20:44)
[2017-03-19] MEDS: DONEPEZIL HCL 5 MG TAB PO SCH (20:44)
[2017-03-20] VITALS (9 sets, daily range): BP systolic 109–150; BP diastolic 57–67; PULSE 69–97; RESP 17–20; TEMP 97.8–99.3; O2SAT 95–99
[2017-03-20] MEDS: DIAZEPAM 10 MG TAB PO PRN ×2 (00:54→21:52)
[2017-03-20] MEDS: ACETAMINOPHEN/HYDROcodone 325 MG/5 MG TAB PO PRN ×3 (00:55→21:53)
[2017-03-20] MEDS: VANCOMYCIN 500 MG VIAL (FOR ORAL USE ONLY) PO SCH ×4 (03:33→21:52)
[2017-03-20] MEDS: DOCUSATE SODIUM 50 MG/SENNA 8.6 MG TAB PO SCH ×2 (09:00→21:52)
[2017-03-20] MEDS: PILOCARPINE HCL 4% EACH EYE SCH ×2 (09:00→21:00)
[2017-03-20] MEDS: DORZOLAMIDE 2% OPTH SOLN 200 DROP/10 ML BTLO EACH EYE SCH ×3 (09:00→17:25)
[2017-03-20] MEDS: CARVEDILOL 3.125 MG TAB PO SCH ×2 (09:01→21:53)
[2017-03-20] MEDS: ENOXAPARIN SODIUM 40 MG/0.4 ML SYRINGE SQ SCH (09:02)
[2017-03-20] MEDS: BACLOFEN 10 MG TAB PO SCH ×3 (09:02→17:25)
[2017-03-20] MEDS: SERTRALINE HCL 100 MG TAB PO SCH (09:02)
[2017-03-20] MEDS: diphenhydrAMINE HCL 2%/ZINC ACETATE 0.1% CREAM 30 APPLIC/30 GM TUBE TOPICAL SCH (09:03)
[2017-03-20] MEDS: SODIUM CHLORIDE 0.9% FLUSH 10 ML FLUSH IV FLUSH SCH ×2 (09:03→21:00)
[2017-03-20] MEDS: FIDAXOMICIN 200 MG TAB PO SCH ×2 (10:50→21:53)
--- NOTE | 2017-03-20 12:22 | HHI.PR ---
Subjective Remarks This is a pleasant 81 y/o Male with Prostate Cancer history, CVA, Hypertension, Sleep apnea, brought in to the ER by EMS secondary to complaints of severe back pain. Difficult to obtain history from patient secondary to severity of symptoms. Seen at [facility] for similar complaints on 03/08/17, s/p CT Abd/Pelvis w/ nonobstructing right renal calculous w/o hydronephrosis, large partially calcified gallstone w/ no evidence of cholecystitis and lumbar spondylosis w/ multilevel disk disease worse at L5-S1 w/ severe leftward neural foraminal narrowing. Was Rx Baclofen and d/c'd home. CT Abd/Pelvis w/ 3cm calcified gallstone, 2.5cm low density lesion left lobe liver. Seen with loose stools, Followed by Neurology due to Acute Encephalopathy patient with confusion and myoclonus, secondary to Uremia, Hypokalemia versus serotonin syndrome and Myoclonus Resolved recommended to follow up as outpatient. his muscle pain was related to muscle skeletal issues, he has recurrent UTIs, found Enterococcus status pos Amoxicillin for five days, C Diff failing Flagyl, on Vancomycin by mouth. 03/20: Patient stable, continue with Low back pain but he has DJD, awaiting final recommendations by ID specialist for discharge today Vancomycin was increased to 500 mg QID, no nausea, vomit or diarrhea, he had one formed BM today. Objective Vital Signs Date Time Temp Pulse Resp B/P (MAP) Pulse Ox O2 Delivery O2 Flow Rate FiO2 03/20/17 08:58 69 03/20/17 08:58 69 03/20/17 08:00 98.2 97 18 109/57 (74) 97 03/20/17 04:00 98.6 69 20 114/62 (79) 98 03/20/17 00:00 99.3 73 20 129/63 (85) 97 03/19/17 21:00 107 03/19/17 21:00 107 03/19/17 20:00 99.7 77 20 123/59 (80) 97 03/19/17 16:00 98.6 72 20 121/57 (78) 95 I/O 03/19/17 03/19/17 03/19/17 03/20/17 03/20/17 03/20/17 07:00 15:00 23:00 07:00 15:00 23:00 Intake Total 480 ml 360 ml Output Total 75 ml 275 ml Balance -75 ml 480 ml 85 ml Intake Oral 480 ml 360 ml Output Urine Total 75 ml 275 ml # Voids 3 3 2 6 # Bowel Movements 3 2 2 4 Result Diagram: 03/18/17 0858 03/18/17 0900 Imaging Last Impressions Lumbar Spine MRI 03/18/17 0000 Signed Impressions: Service Date/Time: Saturday, March 18, 2017 15:42 - CONCLUSION: Multilevel disc protrusions and spondylitic changes.. Juanito Salinas MD Chest X-Ray 03/14/17 0000 Signed Impressions: Service Date/Time: Tuesday, March 14, 2017 16:11 - CONCLUSION: No acute disease. Emery Hector MD FACR Brain MRI 03/12/17 0000 Signed Impressions: Service Date/Time: February 10:26 - CONCLUSION: 1. No acute intracranial abnormality. 2. Atrophy. 3. Ventriculomegaly. This could relate to more centralized forms of atrophy but normal pressure hydrocephaly can have a similar appearance. Ramsey Guzman Jr., MD Abdomen Ultrasound 03/12/17 0000 Signed Impressions: Service Date/Time: February 17:01 - CONCLUSION: 1. Gallstone 2. Minimally complex 2 cm cyst in the left lobe of the liver. Juanito Calero MD Abdomen/Pelvis CT 03/08/171940 Signed Impressions: Service Date/Time: Wednesday, March 08, 2017 22:08 - CONCLUSION: 1. 3 cm calcified gallstone. 2. 2.5 cm low density lesion within the left lobe of the liver near the dome which is indeterminate on this unenhanced examination. MRI of the abdomen with contrast as an outpatient could be performed for further evaluation of this finding if clinically indicated. 3. Uncomplicated sigmoid diverticulosis. 4. Calcified non-obstructing right renal calculi with the larger of the two measuring 3 mm. 5. 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 Jason Spencer MD Renal Ultrasound 03/08/17 0000 Signed Impressions: Service Date/Time: Wednesday, March 08, 2017 22:47 - CONCLUSION: 1. Right kidney is slightly smaller than the left but otherwise no significant abnormality is identified. There is no hydronephrosis. 2. There is a single stone within the gallbladder. Juanito Le MD Procedures none Other Results Laboratory Tests Test 03/08/17 19:52 03/09/17 18:15 03/10/17 12:45 03/10/17 14:06 Lipase 167 U/L Nasal Screen MRSA (PCR) MRSA NOT DETECTED Urine Random Sodium 46 MEQ/L Urine Random Potassium 6 MEQ/L Urine Random Chloride 56 MEQ/L Blood Gas Puncture Site RT RADIAL Blood Gas Patient Temperature 98.6 Blood Gas HCO3 27 mmol/L Blood Gas Base Excess 2.0 mmol/L Blood Gas Oxygen Saturation 96 % Arterial Blood pH 7.35 Arterial Blood Partial Pressure CO2 50 mmHg Arterial Blood Partial Pressure O2 116 mmHg Arterial Blood Oxygen Content 17.5 Vol % Arterial Blood Carboxyhemoglobin 1.5 % Arterial Blood Methemoglobin 1.1 % Blood Gas Hemoglobin 12.9 G/DL Oxygen Delivery Device NASAL CANNULA Blood Gas Liter Flow 2 L/M Test 03/11/17 19:00 03/11/17 22:38 03/12/17 11:52 03/13/17 02:20 Urine Total Volume 24 Hours 2325 ML Urine Creatinine 24 Hour 1.32 GM/24HR Urine Sodium 24 Hour 170 MEQ/24HR Urine Potassium 24 Hour 35 MEQ/24HR Urine Chloride 24 Hour 223 MEQ/24HR Blood Urea Nitrogen 22 MG/DL Creatinine 1.07 MG/DL Random Glucose 173 MG/DL Albumin 2.2 GM/DL Calcium Level 8.4 MG/DL Phosphorus Level 1.0 MG/DL Magnesium Level 1.7 MG/DL Sodium Level 146 MEQ/L Potassium Level 3.1 MEQ/L Chloride Level 111 MEQ/L Carbon Dioxide Level 27.6 MEQ/L Total Bilirubin 0.4 MG/DL Direct Bilirubin 0.1 MG/DL Indirect Bilirubin 0.3 MG/DL Aspartate Amino Transf (AST/SGOT) 41 U/L Alanine Aminotransferase (ALT/SGPT) 29 U/L Alkaline Phosphatase 70 U/L Total Protein 6.6 GM/DL Stool C. difficile Toxin (PCR) POSITIVE Stl C. difficile Toxin Epiderm 027 PRESUMPTIVE NEGATIVE Test 03/13/17 11:50 03/16/17 08:47 03/17/17 16:20 03/18/17 08:58 Blood Urea Nitrogen 13 MG/DL Creatinine 0.91 MG/DL Random Glucose 138 MG/DL Albumin 1.9 GM/DL Calcium Level 8.2 MG/DL Phosphorus Level 1.5 MG/DL Sodium Level 142 MEQ/L Potassium Level 3.9 MEQ/L Chloride Level 107 MEQ/L Carbon Dioxide Level 26.3 MEQ/L Uric Acid 4.0 MG/DL Urine Color DARK-YELLOW Urine Turbidity HAZY Urine pH 5.5 Urine Specific [place] 1.030 Urine Protein 30 mg/dL Urine Glucose (UA) NEG mg/dL Urine Ketones 10 mg/dL Urine Occult Blood TRACE Urine Nitrite NEG Urine Bilirubin NEG Urine Urobilinogen 2.0 MG/DL Urine Leukocyte Esterase LARGE Urine RBC 5 /hpf Urine WBC 49 /hpf Urine WBC Clumps RARE Urine Squamous Epithelial Cells 1 /hpf Urine Bacteria MOD /hpf Urine Hyaline Casts 14 /lpf Urine Granular Casts 4 /lpf Urine Mucus FEW /lpf Microscopic Urinalysis Comment CULTURE INDICATED White Blood Count 9.6 TH/MM3 Red Blood Count 4.10 MIL/MM3 Hemoglobin 12.6 GM/DL Hematocrit 37.4 % Mean Corpuscular Volume 91.2 FL Mean Corpuscular Hemoglobin 30.7 PG Mean Corpuscular Hemoglobin Concent 33.7 % Red Cell Distribution Width 14.2 % Platelet Count 179 TH/MM3 Mean Platelet Volume 8.3 FL Neutrophils (%) (Auto) 74.4 % Lymphocytes (%) (Auto) 14.5 % Monocytes (%) (Auto) 6.2 % Eosinophils (%) (Auto) 2.8 % Basophils (%) (Auto) 2.1 % Neutrophils # (Auto) 7.1 TH/MM3 Lymphocytes # (Auto) 1.4 TH/MM3 Monocytes # (Auto) 0.6 TH/MM3 Eosinophils # (Auto) 0.3 TH/MM3 Basophils # (Auto) 0.2 TH/MM3 CBC Comment DIFF FINAL Differential Comment Test 03/18/17 09:00 Blood Urea Nitrogen 24 MG/DL Creatinine 0.94 MG/DL Random Glucose 101 MG/DL Calcium Level 8.6 MG/DL Sodium Level 139 MEQ/L Potassium Level 4.3 MEQ/L Chloride Level 107 MEQ/L Carbon Dioxide Level 24.2 MEQ/L Anion Gap 8 MEQ/L Estimat Glomerular Filtration Rate 77 ML/MIN Objective Remarks GENERAL: Obesity, no acute distress. SKIN: Warm and dry. ENT: No nasal bleeding or discharge. Mucous membranes pink and moist. NECK: Trachea midline. No JVD. CARDIOVASCULAR: Regular rate and rhythm. RESPIRATORY: No accessory muscle use. Clear to auscultation. Breath sounds equal bilaterally. GASTROINTESTINAL: Abdomen soft, non-tender, nondistended. MUSCULOSKELETAL: Extremities without clubbing, cyanosis, or edema. NEUROLOGICAL: Awake and alert. Medications and IVs Current Medications Medications (Trade) Dose Ordered Sig/[place] Route Start Time Stop Time Status Last Admin (NS Flush) 2 ml UNSCH PRN IV FLUSH 03/08/17 22:45 (NS Flush) 2 ml BID IV FLUSH 03/09/17 09:00 03/20/17 09:03 (Tylenol) 650 mg Q6H PRN PO 03/08/17 22:45 ([place] 5-325 Mg) 1 tab Q4H PRN PO 03/08/17 22:45 03/20/17 00:55 (Jojo-Colace) 1 tab BID PO 03/09/17 09:00 03/12/17 20:31 (Milk Of Magnesia Liq) 30 ml Q12H PRN PO 03/08/17 22:45 (Senokot) 17.2 mg Q12H PRN PO 03/08/17 22:45 (Dulcolax Supp) 10 mg DAILY PRN RECTAL 03/08/17 22:45 (Lactulose Liq) 30 ml DAILY PRN PO 03/08/17 22:45 (Coreg) 3.125 mg BID PO 03/09/17 09:00 03/20/17 09:01 (Aricept) 5 mg HS PO 03/09/17 21:00 03/19/17 20:44 (Zoloft) 100 mg DAILY PO 03/09/17 09:00 03/20/17 09:02 (Valium) 10 mg Q8H PRN PO 03/08/17 23:15 03/20/17 00:54 (Trusopt 2% Opth Soln) 1 drop TID EACH EYE 03/09/17 09:00 03/20/17 09:00 (Pilocar 4% Opth Soln) 1 drop BID EACH EYE 03/09/17 09:00 03/20/17 09:00 Miscellaneous Information Patient in critical care unit? Ass... Q361D .XX 03/09/17 23:45 (Lioresal) 5 mg TID PO 03/10/17 09:00 03/20/17 09:02 (Pill Splitter) 1 ea UNSCH PRN OTHER 03/10/17 09:00 (Lovenox Inj) 40 mg Q24H SQ 03/14/17 09:00 03/20/17 09:02 (Neurontin) 300 mg HS PO 03/17/17 21:00 03/19/17 20:44 (Lipitor) 40 mg HS PO 03/17/17 21:00 03/19/17 20:44 (Benadryl 2% Cream) 1 applic DAILY TOPICAL 03/18/17 09:00 03/20/17 09:03 (VANCOMYCIN for oral use only) 500 mg Q6H PO 03/20/17 09:00 03/20/17 09:02 (Dificid) 200 mg BID PO 03/20/17 09:00 03/30/17 08:59 03/20/17 10:50 A/P Assessment and Plan 2010 History of subdural hematoma Encephalopathy - resolved -EEG negative, dc'd off of Keppra by neurology, brain MRI shows ventriculomegaly , follow-up with neurology outpatient, currently mentation intact Back pain and muscle spasms -Currently Flexeril 5 mg 3 times a day. Continue gabapentin and can uptitrate dose -oral pain medications - Likely secondary to spinal stenosis as noted on CT scan report, MRI of the Spine multiple degenerative changes. continue C. difficile returned positive -not responding to flagyl, ID consulted, switched to vancomycin, stopped Aricept , ID specialist increased Vancomycin to 500 mg QID had 8 Bowel movements documented since yesterday, Enterococcal bacteriuria - Appreciate ID recs, stopping amoxicillin and see if this helps Dementia stable at this time -Continues Zoloft 100 mg by mouth daily -stopping aricept since this could be making his diarrhea worse CV: CAD/Dyslipidemia -Continue Plavix 75 mg by mouth daily as indicated -Continue Lipitor 80 mg by mouth daily CHFrEF 40-45%/HTN controlled. -Continue Coreg 3.25 mg by mouth twice a day -lisinopril ARMAND CPAP at night foot pain gabapentin qhs Hypothyroidism Continue Levoxyl 75 mg by mouth daily History of prostate cancer Spinal stenosis PT following, MRI of the spine, multilevel disc protrusions and spondylitic changes. Prophylaxis - GI - famotidine - DVT - Lovenox Discussed with nurse told me he had one BM but is documented 8 BMs discussed with Doctor Tatiana Cavazos not possible to discharge this gentleman he is worsening. Discharge Planning not yet clear for discharge had 8 BMs Alexandre Horner MD Mar 20, 2017 12:22
[2017-03-20] MEDS: CHOLESTYRAMINE 4 GM PACKET PO SCH ×2 (14:00→22:00)
--- NOTE | 2017-03-20 18:42 | PD.WCN.NOT ---
Wound Consult Description: Follow up for DTI opening to partial thickness skin loss on sacral area Communicated with: [place] [facility] Recommendation: Continue recommendations as follows: Please cleanse buttock, sacral and coccyx areas with soap and water, pat dry, and apply Calazime barrier cream BID and PRN. Continue to turn and reposition patient every 2 hours and PRN for comfort Additional Information: Patient seen on north for follow up of DTI to sacrum that was opening to partial thickness skin loss. Patient turned to L side with moderate assistance of automotive service writer to reveal diffuse small areas of full and partial thickness skin loss to sacrococcygeal area and bilateral buttocks measured as one. No intact non blanchable purple discoloration is seen at this time Entire area measures ~8 cm x ~7 cm. All wounds have mixed etiology of moisture and pressure.Full thickness wound noted to gluteal cleft just below sacrum measures ~4cm x ~1.5cm x ~0.2 cm.Wound bed is noted with ~50% pink tissue and ~50% yellow tissue.Wound has no active drainage, but has moist wound bed. Applied Calazime barrier cream. Patient is laying on [place] airapy bed with ultrasorb pad underneath buttocks for incontinence management. Patient has been having loose stools due to C diff which is contributing to moisture related breakdown. Do not recommend any new recommendations at this time.Will follow up with patient next week Cassidy Drew [facility] Mar 20, 2017 18:42
[2017-03-20] MEDS: ATORVASTATIN 40 MG TAB PO SCH (21:52)
[2017-03-20] MEDS: GABAPENTIN 300 MG CAP PO SCH (21:53)
[2017-03-20] MEDS: DONEPEZIL HCL 5 MG TAB PO SCH (21:53)
[2017-03-21 01:17] VITALS: BP 124/57; PULSE 78; RESP 16; TEMP 98.5; O2SAT 97
[2017-03-21 03:33] VITALS: BP 122/60; PULSE 75; RESP 18; TEMP 98.1; O2SAT 98
[2017-03-21] MEDS: VANCOMYCIN 500 MG VIAL (FOR ORAL USE ONLY) PO SCH ×4 (04:54→21:00)
[2017-03-21] MEDS: ACETAMINOPHEN/HYDROcodone 325 MG/5 MG TAB PO PRN ×3 (04:54→21:32)
[2017-03-21] MEDS: CHOLESTYRAMINE 4 GM PACKET PO SCH ×3 (04:54→21:34)
[2017-03-21 08:00] VITALS: BP 128/58; PULSE 63; RESP 19; TEMP 97.4; O2SAT 98
[2017-03-21] MEDS: DOCUSATE SODIUM 50 MG/SENNA 8.6 MG TAB PO SCH ×2 (09:00→21:00)
[2017-03-21] MEDS: SODIUM CHLORIDE 0.9% FLUSH 10 ML FLUSH IV FLUSH SCH ×2 (09:03→21:00)
[2017-03-21] MEDS: CARVEDILOL 3.125 MG TAB PO SCH ×2 (09:04→21:33)
[2017-03-21] MEDS: FIDAXOMICIN 200 MG TAB PO SCH ×2 (09:04→21:34)
[2017-03-21] MEDS: SERTRALINE HCL 100 MG TAB PO SCH (09:04)
[2017-03-21] MEDS: BACLOFEN 10 MG TAB PO SCH ×3 (09:04→17:32)
[2017-03-21] MEDS: ENOXAPARIN SODIUM 40 MG/0.4 ML SYRINGE SQ SCH (09:05)
[2017-03-21] MEDS: DORZOLAMIDE 2% OPTH SOLN 200 DROP/10 ML BTLO EACH EYE SCH ×3 (09:06→17:32)
[2017-03-21] MEDS: PILOCARPINE HCL 4% EACH EYE SCH ×2 (09:06→21:00)
[2017-03-21] MEDS: diphenhydrAMINE HCL 2%/ZINC ACETATE 0.1% CREAM 30 APPLIC/30 GM TUBE TOPICAL SCH (09:08)
[2017-03-21 09:42] LABS: BICARBONATE 27.6 MEQ/L (21.0-32.0); MAGNESIUM 2.1 MG/DL (1.5-2.5); POTASSIUM 4.2 MEQ/L (3.5-5.1)
--- NOTE | 2017-03-21 11:05 | HHI.PR ---
Subjective Remarks This is a pleasant 81 y/o Male with Prostate Cancer history, CVA, Hypertension, Sleep apnea, brought in to the ER by EMS secondary to complaints of severe back pain. Difficult to obtain history from patient secondary to severity of symptoms. Seen at [facility] for similar complaints on 03/08/17, s/p CT Abd/Pelvis w/ nonobstructing right renal calculous w/o hydronephrosis, large partially calcified gallstone w/ no evidence of cholecystitis and lumbar spondylosis w/ multilevel disk disease worse at L5-S1 w/ severe leftward neural foraminal narrowing. Was Rx Baclofen and d/c'd home. CT Abd/Pelvis w/ 3cm calcified gallstone, 2.5cm low density lesion left lobe liver. Seen with loose stools, Followed by Neurology due to Acute Encephalopathy patient with confusion and myoclonus, secondary to Uremia, Hypokalemia versus serotonin syndrome and Myoclonus Resolved recommended to follow up as outpatient. his muscle pain was related to muscle skeletal issues, he has recurrent UTIs, found Enterococcus status pos Amoxicillin for five days, C Diff failing Flagyl, on Vancomycin by mouth. 03/20: Patient stable, continue with Low back pain but he has DJD, awaiting final recommendations by ID specialist for discharge today Vancomycin was increased to 500 mg QID, no nausea, vomit or diarrhea, he had one formed BM today. 03/21: Stable in his bedroom, continue having multiple bowel movements per day, not yet cleared for discharge by ID specialist. no nausea, vomit. Objective Vital Signs Date Time Temp Pulse Resp B/P (MAP) Pulse Ox O2 Delivery O2 Flow Rate FiO2 03/21/17 08:00 97.4 63 19 128/58 (81) 98 03/21/17 03:33 98.1 75 18 122/60 (80) 98 03/21/17 01:17 98.5 78 16 124/57 (79) 97 03/20/17 20:00 98.3 80 20 150/67 (94) 95 03/20/17 20:00 87 03/20/17 19:00 87 03/20/17 16:00 98.7 78 20 114/59 (77) 96 03/20/17 13:52 99 21 03/20/17 12:00 97.8 69 17 110/58 (75) 99 I/O 03/20/17 03/20/17 03/20/17 03/21/17 03/21/17 03/21/17 07:00 15:00 23:00 07:00 15:00 23:00 Intake Total 360 ml 360 ml Output Total 275 ml Balance 85 ml 360 ml Intake Oral 360 ml 360 ml Output Urine Total 275 ml # Voids 6 3 3 2 # Bowel Movements 4 1 2 0 Result Diagram: 03/18/17 0858 03/21/17 0900 Imaging Last Impressions Lumbar Spine MRI 03/18/17 0000 Signed Impressions: Service Date/Time: Saturday, March 18, 2017 15:42 - CONCLUSION: Multilevel disc protrusions and spondylitic changes.. Juanito Salinas MD Chest X-Ray 03/14/17 0000 Signed Impressions: Service Date/Time: Tuesday, March 14, 2017 16:11 - CONCLUSION: No acute disease. Emery Hector MD FACR Brain MRI 03/12/17 0000 Signed Impressions: Service Date/Time: February 10:26 - CONCLUSION: 1. No acute intracranial abnormality. 2. Atrophy. 3. Ventriculomegaly. This could relate to more centralized forms of atrophy but normal pressure hydrocephaly can have a similar appearance. Ramsey Guzman Jr., MD Abdomen Ultrasound 03/12/17 0000 Signed Impressions: Service Date/Time: February 17:01 - CONCLUSION: 1. Gallstone 2. Minimally complex 2 cm cyst in the left lobe of the liver. Juanito Calero MD Abdomen/Pelvis CT 03/08/17 194 Signed Impressions: Service Date/Time: Wednesday, March 08, 2017 22:08 - CONCLUSION: 1. 3 cm calcified gallstone. 2. 2.5 cm low density lesion within the left lobe of the liver near the dome which is indeterminate on this unenhanced examination. MRI of the abdomen with contrast as an outpatient could be performed for further evaluation of this finding if clinically indicated. 3. Uncomplicated sigmoid diverticulosis. 4. Calcified non-obstructing right renal calculi with the larger of the two measuring 3 mm. 5. 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 Jason Spencer MD Renal Ultrasound 03/08/17 0000 Signed Impressions: Service Date/Time: Wednesday, March 08, 2017 22:47 - CONCLUSION: 1. Right kidney is slightly smaller than the left but otherwise no significant abnormality is identified. There is no hydronephrosis. 2. There is a single stone within the gallbladder. Juanito Le MD Procedures none Other Results Laboratory Tests Test 03/08/17 19:52 03/09/17 18:15 03/10/17 12:45 03/10/17 14:06 Lipase 167 U/L Nasal Screen MRSA (PCR) MRSA NOT DETECTED Urine Random Sodium 46 MEQ/L Urine Random Potassium 6 MEQ/L Urine Random Chloride 56 MEQ/L Blood Gas Puncture Site RT RADIAL Blood Gas Patient Temperature 98.6 Blood Gas HCO3 27 mmol/L Blood Gas Base Excess 2.0 mmol/L Blood Gas Oxygen Saturation 96 % Arterial Blood pH 7.35 Arterial Blood Partial Pressure CO2 50 mmHg Arterial Blood Partial Pressure O2 116 mmHg Arterial Blood Oxygen Content 17.5 Vol % Arterial Blood Carboxyhemoglobin 1.5 % Arterial Blood Methemoglobin 1.1 % Blood Gas Hemoglobin 12.9 G/DL Oxygen Delivery Device NASAL CANNULA Blood Gas Liter Flow 2 L/M Test 03/11/17 19:00 03/12/17 11:52 03/13/17 02:20 03/13/17 11:50 Urine Total Volume 24 Hours 2325 ML Urine Creatinine 24 Hour 1.32 GM/24HR Urine Sodium 24 Hour 170 MEQ/24HR Urine Potassium 24 Hour 35 MEQ/24HR Urine Chloride 24 Hour 223 MEQ/24HR Total Bilirubin 0.4 MG/DL Direct Bilirubin 0.1 MG/DL Indirect Bilirubin 0.3 MG/DL Aspartate Amino Transf (AST/SGOT) 41 U/L Alanine Aminotransferase (ALT/SGPT) 29 U/L Alkaline Phosphatase 70 U/L Total Protein 6.6 GM/DL Stool C. difficile Toxin (PCR) POSITIVE Stl C. difficile Toxin Epiderm 027 PRESUMPTIVE NEGATIVE Blood Urea Nitrogen 13 MG/DL Creatinine 0.91 MG/DL Random Glucose 138 MG/DL Albumin 1.9 GM/DL Calcium Level 8.2 MG/DL Phosphorus Level 1.5 MG/DL Sodium Level 142 MEQ/L Potassium Level 3.9 MEQ/L Chloride Level 107 MEQ/L Carbon Dioxide Level 26.3 MEQ/L Test 03/16/17 08:47 03/17/17 16:20 03/18/17 08:58 03/21/17 09:00 Uric Acid 4.0 MG/DL Urine Color DARK-YELLOW Urine Turbidity HAZY Urine pH 5.5 Urine Specific [place] 1.030 Urine Protein 30 mg/dL Urine Glucose (UA) NEG mg/dL Urine Ketones 10 mg/dL Urine Occult Blood TRACE Urine Nitrite NEG Urine Bilirubin NEG Urine Urobilinogen 2.0 MG/DL Urine Leukocyte Esterase LARGE Urine RBC 5 /hpf Urine WBC 49 /hpf Urine WBC Clumps RARE Urine Squamous Epithelial Cells 1 /hpf Urine Bacteria MOD /hpf Urine Hyaline Casts 14 /lpf Urine Granular Casts 4 /lpf Urine Mucus FEW /lpf Microscopic Urinalysis Comment CULTURE INDICATED White Blood Count 9.6 TH/MM3 Red Blood Count 4.10 MIL/MM3 Hemoglobin 12.6 GM/DL Hematocrit 37.4 % Mean Corpuscular Volume 91.2 FL Mean Corpuscular Hemoglobin 30.7 PG Mean Corpuscular Hemoglobin Concent 33.7 % Red Cell Distribution Width 14.2 % Platelet Count 179 TH/MM3 Mean Platelet Volume 8.3 FL Neutrophils (%) (Auto) 74.4 % Lymphocytes (%) (Auto) 14.5 % Monocytes (%) (Auto) 6.2 % Eosinophils (%) (Auto) 2.8 % Basophils (%) (Auto) 2.1 % Neutrophils # (Auto) 7.1 TH/MM3 Lymphocytes # (Auto) 1.4 TH/MM3 Monocytes # (Auto) 0.6 TH/MM3 Eosinophils # (Auto) 0.3 TH/MM3 Basophils # (Auto) 0.2 TH/MM3 CBC Comment DIFF FINAL Differential Comment Blood Urea Nitrogen 19 MG/DL Creatinine 0.82 MG/DL Random Glucose 104 MG/DL Calcium Level 8.6 MG/DL Phosphorus Level 3.3 MG/DL Magnesium Level 2.1 MG/DL Sodium Level 137 MEQ/L Potassium Level 4.2 MEQ/L Chloride Level 103 MEQ/L Carbon Dioxide Level 27.6 MEQ/L Anion Gap 6 MEQ/L Estimat Glomerular Filtration Rate 90 ML/MIN Objective Remarks GENERAL: Obesity, no acute distress. SKIN: Warm and dry. ENT: No nasal bleeding or discharge. Mucous membranes pink and moist. NECK: Trachea midline. No JVD. CARDIOVASCULAR: Regular rate and rhythm. RESPIRATORY: No accessory muscle use. Clear to auscultation. Breath sounds equal bilaterally. GASTROINTESTINAL: Abdomen soft, non-tender, nondistended. MUSCULOSKELETAL: Extremities without clubbing, cyanosis, or edema. NEUROLOGICAL: Awake and alert. Medications and IVs Current Medications Medications (Trade) Dose Ordered Sig/Severino Route Start Time Stop Time Status Last Admin (NS Flush) 2 ml UNSCH PRN IV FLUSH 03/08/17 22:45 (NS Flush) 2 ml BID IV FLUSH 03/09/17 09:00 03/21/17 09:03 (Tylenol) 650 mg Q6H PRN PO 03/08/17 22:45 ([place] 5-325 Mg) 1 tab Q4H PRN PO 03/08/17 22:45 03/21/17 09:05 (Jojo-Colace) 1 tab BID PO 03/09/17 09:00 03/20/17 21:52 (Milk Of Magnesia Liq) 30 ml Q12H PRN PO 03/08/17 22:45 (Senokot) 17.2 mg Q12H PRN PO 03/08/17 22:45 (Dulcolax Supp) 10 mg DAILY PRN RECTAL 03/08/17 22:45 (Coreg) 3.125 mg BID PO 03/09/17 09:00 03/21/17 09:04 (Aricept) 5 mg HS PO 03/09/17 21:00 03/20/17 21:53 (Zoloft) 100 mg DAILY PO 03/09/17 09:00 03/21/17 09:04 (Valium) 10 mg Q8H PRN PO 03/08/17 23:15 03/20/17 21:52 (Trusopt 2% Opth Soln) 1 drop TID EACH EYE 03/09/17 09:00 03/21/17 09:06 (Pilocar 4% Opth Soln) 1 drop BID EACH EYE 03/09/17 09:00 03/21/17 09:06 Miscellaneous Information Patient in critical care unit? Ass... Q361D .XX 03/09/17 23:45 (Lioresal) 5 mg TID PO 03/10/17 09:00 03/21/17 09:04 (Pill Splitter) 1 ea UNSCH PRN OTHER 03/10/17 09:00 (Lovenox Inj) 40 mg Q24H SQ 03/14/17 09:00 03/21/17 09:05 (Neurontin) 300 mg HS PO 03/17/17 21:00 03/20/17 21:53 (Lipitor) 40 mg HS PO 03/17/17 21:00 03/20/17 21:52 (Benadryl 2% Cream) 1 applic DAILY TOPICAL 03/18/17 09:00 03/21/17 09:08 (VANCOMYCIN for oral use only) 500 mg Q6H PO 03/20/17 09:00 03/21/17 09:03 (Dificid) 200 mg BID PO 03/20/17 09:00 03/30/17 08:59 03/21/17 09:04 (Questran 4 Gm Pkt) 4 gm Q8HR PO 03/20/17 14:00 03/21/17 04:54 A/P Assessment and Plan 2010 History of subdural hematoma Encephalopathy - resolved -EEG negative, dc'd off of Keppra by neurology, brain MRI shows ventriculomegaly , follow-up with neurology outpatient, currently mentation intact Back pain and muscle spasms -Currently Flexeril 5 mg 3 times a day. Continue gabapentin -oral pain medications - Likely secondary to spinal stenosis as noted on CT scan report, MRI of the Spine multiple degenerative changes. C. difficile returned positive -not responding to Flagyl, ID consulted, switched to vancomycin, stopped Aricept , ID specialist increased Vancomycin to 500 mg QID continue Enterococcal bacteriuria - Appreciate ID recs, stopping amoxicillin and see if this helps Dementia stable at this time -Continues Zoloft 100 mg by mouth daily -stopping Aricept since this could be making his diarrhea worse CV: CAD/Dyslipidemia -Continue Plavix 75 mg by mouth daily as indicated -Continue Lipitor 80 mg by mouth daily CHFrEF 40-45%/HTN controlled. -Continue Coreg 3.25 mg by mouth twice a day -lisinopril ARMAND CPAP at night foot pain Gabapentin QHS Hypothyroidism Continue Levoxyl 75 mg by mouth daily History of prostate cancer Spinal stenosis PT following, MRI of the spine, multilevel disc protrusions and spondylitic changes. Prophylaxis - GI - famotidine - DVT - Lovenox Discussed with Patient and nurse Miss Sal, all questions answered to the best of my abilities. Discharge Planning not yet clear for discharge by ID specialist. Alexandre Horner MD Mar 21, 2017 11:05
[2017-03-21 12:00] VITALS: BP 150/67; PULSE 65; RESP 18; TEMP 98.2; O2SAT 99
[2017-03-21 16:00] VITALS: BP 140/60; PULSE 66; RESP 19; TEMP 97.5; O2SAT 97
[2017-03-21 19:45] VITALS: BP 138/68; PULSE 88; RESP 20; TEMP 98.1; O2SAT 94
[2017-03-21] MEDS: DIAZEPAM 10 MG TAB PO PRN (21:34)
[2017-03-21] MEDS: ATORVASTATIN 40 MG TAB PO SCH (21:34)
[2017-03-21] MEDS: GABAPENTIN 300 MG CAP PO SCH (21:34)
[2017-03-21] MEDS: DONEPEZIL HCL 5 MG TAB PO SCH (21:35)
[2017-03-22 00:16] VITALS: BP 130/80; PULSE 89; RESP 20; TEMP 97.9; O2SAT 96
[2017-03-22] MEDS: VANCOMYCIN 500 MG VIAL (FOR ORAL USE ONLY) PO SCH ×4 (03:00→21:49)
[2017-03-22 04:15] VITALS: BP 130/72; PULSE 80; RESP 19; TEMP 98.4; O2SAT 96
[2017-03-22] MEDS: CHOLESTYRAMINE 4 GM PACKET PO SCH ×3 (04:33→21:51)
[2017-03-22] MEDS: ACETAMINOPHEN/HYDROcodone 325 MG/5 MG TAB PO PRN ×5 (04:34→19:22)
[2017-03-22 08:00] VITALS: BP 108/55; PULSE 65; RESP 18; TEMP 98.2; O2SAT 95
[2017-03-22] MEDS: BACLOFEN 10 MG TAB PO SCH ×3 (08:59→18:22)
[2017-03-22] MEDS: SERTRALINE HCL 100 MG TAB PO SCH (08:59)
[2017-03-22] MEDS: CARVEDILOL 3.125 MG TAB PO SCH ×2 (08:59→21:50)
[2017-03-22] MEDS: FIDAXOMICIN 200 MG TAB PO SCH ×2 (08:59→21:50)
[2017-03-22] MEDS: DORZOLAMIDE 2% OPTH SOLN 200 DROP/10 ML BTLO EACH EYE SCH ×3 (08:59→18:22)
[2017-03-22] MEDS: PILOCARPINE HCL 4% EACH EYE SCH ×2 (08:59→21:00)
[2017-03-22] MEDS: ENOXAPARIN SODIUM 40 MG/0.4 ML SYRINGE SQ SCH (09:00)
[2017-03-22] MEDS: diphenhydrAMINE HCL 2%/ZINC ACETATE 0.1% CREAM 30 APPLIC/30 GM TUBE TOPICAL SCH (09:00)
[2017-03-22] MEDS: DOCUSATE SODIUM 50 MG/SENNA 8.6 MG TAB PO SCH ×2 (09:00→21:00)
[2017-03-22] MEDS: SODIUM CHLORIDE 0.9% FLUSH 10 ML FLUSH IV FLUSH SCH ×2 (09:00→21:00)
[2017-03-22 11:55] VITALS: BP 152/68; PULSE 76; RESP 16; TEMP 98.3; O2SAT 95
--- NOTE | 2017-03-22 13:55 | HHI.PR ---
Subjective Remarks The patient said he had 3 loose stools today but they were improved. He has some abdominal pain that is exacerbated by coughing. No other acute complaints. Discussed with nursing. Objective Vitals Vital Signs Date Time Temp Pulse Resp B/P (MAP) Pulse Ox O2 Delivery O2 Flow Rate FiO2 03/22/17 11:55 98.3 76 16 152/68 (96) 95 03/22/17 08:00 98.2 65 18 108/55 (72) 95 03/22/17 04:15 98.4 80 19 130/72 (91) 96 03/22/17 00:16 97.9 89 20 130/80 (97) 96 03/21/17 19:45 98.1 88 20 138/68 (91) 94 03/21/17 16:00 97.5 66 19 140/60 (86) 97 I/O 03/21/17 03/21/17 03/21/17 03/22/17 03/22/17 03/22/17 06:59 14:59 22:59 06:59 14:59 22:59 Intake Total 2200 ml 900 ml Output Total 500 ml 500 ml 300 ml Balance 1700 ml 400 ml -300 ml Intake Oral 2200 ml 900 ml Output Urine Total 500 ml 500 ml 300 ml # Voids 2 5 2 # Bowel Movements 0 4 4 Result Diagram: 03/18/17 0858 03/21/17 0900 Objective Remarks GENERAL: No acute distress, resting comfortably. SKIN: Warm and dry. ENT: No nasal bleeding or discharge. Mucous membranes pink and moist. NECK: Trachea midline. No JVD. CARDIOVASCULAR: Regular rate and rhythm. RESPIRATORY: No accessory muscle use. Clear to auscultation. Breath sounds equal bilaterally. GASTROINTESTINAL: Abdomen soft, non-tender, slightly distended. MUSCULOSKELETAL: Extremities without clubbing, cyanosis, or edema. NEUROLOGICAL: Awake and alert. PSYCH: Mood and affect appropriate. Medications and IVs Current Medications Medications (Trade) Dose Ordered Sig/Severino Route Start Time Stop Time Status Last Admin (NS Flush) 2 ml UNSCH PRN IV FLUSH 03/08/17 22:45 (NS Flush) 2 ml BID IV FLUSH 03/09/17 09:00 03/22/17 09:00 (Tylenol) 650 mg Q6H PRN PO 03/08/17 22:45 ([place] 5-325 Mg) 1 tab Q4H PRN PO 03/08/17 22:45 03/22/17 09:00 (Jojo-Colace) 1 tab BID PO 03/09/17 09:00 03/20/17 21:52 (Milk Of Magnesia Liq) 30 ml Q12H PRN PO 03/08/17 22:45 (Senokot) 17.2 mg Q12H PRN PO 03/08/17 22:45 (Dulcolax Supp) 10 mg DAILY PRN RECTAL 03/08/17 22:45 (Coreg) 3.125 mg BID PO 03/09/17 09:00 03/22/17 08:59 (Aricept) 5 mg HS PO 03/09/17 21:00 03/21/17 21:35 (Zoloft) 100 mg DAILY PO 03/09/17 09:00 03/22/17 08:59 (Valium) 10 mg Q8H PRN PO 03/08/17 23:15 03/21/17 21:34 (Trusopt 2% Opth Soln) 1 drop TID EACH EYE 03/09/17 09:00 03/22/17 08:59 (Pilocar 4% Opth Soln) 1 drop BID EACH EYE 03/09/17 09:00 03/22/17 08:59 Miscellaneous Information Patient in critical care unit? Ass... Q361D .XX 03/09/17 23:45 (Lioresal) 5 mg TID PO 03/10/17 09:00 03/22/17 08:59 (Pill Splitter) 1 ea UNSCH PRN OTHER 03/10/17 09:00 (Lovenox Inj) 40 mg Q24H SQ 03/14/17 09:00 03/22/17 09:00 (Neurontin) 300 mg HS PO 03/17/17 21:00 03/21/17 21:34 (Lipitor) 40 mg HS PO 03/17/17 21:00 03/21/17 21:34 (Benadryl 2% Cream) 1 applic DAILY TOPICAL 03/18/17 09:00 03/22/17 09:00 (VANCOMYCIN for oral use only) 500 mg Q6H PO 03/20/17 09:00 03/22/17 09:00 (Dificid) 200 mg BID PO 03/20/17 09:00 03/30/17 08:59 03/22/17 08:59 (Questran 4 Gm Pkt) 4 gm Q8HR PO 03/20/17 14:00 03/22/17 04:33 A/P Problem List: (1) Intractable back pain ICD Code: M54.9 - Dorsalgia, unspecified Status: Chronic (2) Hypokalemia ICD Code: E87.6 - Hypokalemia Status: Resolved (3) EVANGELISTA (acute kidney injury) ICD Code: N17.9 - Acute kidney failure, unspecified (4) Renal stone ICD Code: N20.0 - Calculus of kidney (5) Dehydration ICD Code: E86.0 - Dehydration Status: Acute Assessment and Plan Encephalopathy - resolved -EEG negative, dc'd off of Keppra by neurology, brain MRI shows ventriculomegaly , follow-up with neurology outpatient. Back pain and muscle spasms -Currently Flexeril 5 mg 3 times a day. Continue gabapentin -oral pain medications - Likely secondary to spinal stenosis as noted on CT scan report, MRI of the Spine multiple degenerative changes. C. difficile returned positive -not responding to Flagyl, ID consulted, switched to vancomycin, stopped Aricept , ID specialist increased Vancomycin to 500 mg QID - fidaxomicin added. Enterococcal bacteriuria - Appreciate ID recs, stopping amoxicillin and see if this helps Dementia stable at this time -Continues Zoloft 100 mg by mouth daily -stopping Aricept since this could be making his diarrhea worse. Resume unstable. CV: CAD/Dyslipidemia -Continue Plavix 75 mg by mouth daily as indicated -Continue Lipitor 80 mg by mouth daily CHFrEF 40-45%/HTN controlled. -Continue Coreg 3.25 mg by mouth twice a day -lisinopril ARMAND CPAP at night Spinal stenosis PT following, MRI of the spine, multilevel disc protrusions and spondylitic changes. Prophylaxis - GI - famotidine - DVT - Lovenox Discharge Planning Unable to discharge until likely Thursday per case management if cleared by infectious disease. Mega Martinez DO Mar 22, 2017 13:54
[2017-03-22 16:00] VITALS: BP 146/63; PULSE 73; RESP 18; TEMP 98.3; O2SAT 97
[2017-03-22 20:00] VITALS: BP 121/83; PULSE 69; RESP 16; TEMP 98.5; O2SAT 95
[2017-03-22] MEDS: DIAZEPAM 10 MG TAB PO PRN (21:50)
[2017-03-22] MEDS: ATORVASTATIN 40 MG TAB PO SCH (21:50)
[2017-03-22] MEDS: GABAPENTIN 300 MG CAP PO SCH (21:50)
[2017-03-22] MEDS: DONEPEZIL HCL 5 MG TAB PO SCH (21:50)
[2017-03-23 01:00] VITALS: O2SAT 98
[2017-03-23] MEDS: VANCOMYCIN 500 MG VIAL (FOR ORAL USE ONLY) PO SCH ×4 (03:00→21:57)
[2017-03-23 03:46] VITALS: O2SAT 98
[2017-03-23] MEDS: CHOLESTYRAMINE 4 GM PACKET PO SCH ×3 (04:42→22:00)
[2017-03-23] MEDS: ACETAMINOPHEN/HYDROcodone 325 MG/5 MG TAB PO PRN ×5 (04:43→21:59)
[2017-03-23 08:00] VITALS: BP 127/60; PULSE 66; RESP 19; TEMP 98.3; O2SAT 97
[2017-03-23] MEDS: BACLOFEN 10 MG TAB PO SCH ×3 (08:38→18:37)
[2017-03-23] MEDS: CARVEDILOL 3.125 MG TAB PO SCH ×2 (08:38→21:57)
[2017-03-23] MEDS: SERTRALINE HCL 100 MG TAB PO SCH (08:38)
[2017-03-23] MEDS: FIDAXOMICIN 200 MG TAB PO SCH ×2 (08:38→21:00)
[2017-03-23] MEDS: DORZOLAMIDE 2% OPTH SOLN 200 DROP/10 ML BTLO EACH EYE SCH ×3 (08:39→18:37)
[2017-03-23] MEDS: PILOCARPINE HCL 4% EACH EYE SCH ×2 (08:39→21:00)
[2017-03-23] MEDS: diphenhydrAMINE HCL 2%/ZINC ACETATE 0.1% CREAM 30 APPLIC/30 GM TUBE TOPICAL SCH (08:39)
[2017-03-23] MEDS: DOCUSATE SODIUM 50 MG/SENNA 8.6 MG TAB PO SCH ×2 (08:39→21:00)
[2017-03-23] MEDS: SODIUM CHLORIDE 0.9% FLUSH 10 ML FLUSH IV FLUSH SCH ×2 (08:39→21:00)
[2017-03-23] MEDS: ENOXAPARIN SODIUM 40 MG/0.4 ML SYRINGE SQ SCH (08:39)
--- NOTE | 2017-03-23 11:37 | HHI.PR ---
Subjective Remarks The patient just had a very large, watery bowel movement. Otherwise he had no acute complaints. Anticipating going to [facility] soon. Objective Vitals Vital Signs Date Time Temp Pulse Resp B/P (MAP) Pulse Ox O2 Delivery O2 Flow Rate FiO2 03/23/17 08:00 98.3 66 19 127/60 (82) 97 03/23/17 03:46 98 03/23/17 01:00 98 03/22/17 20:22 7 03/22/17 20:00 98.5 69 16 121/83 (96) 95 03/22/17 16:00 98.3 73 18 146/63 (90) 97 03/22/17 11:55 98.3 76 16 152/68 (96) 95 I/O 03/22/17 03/22/17 03/22/17 03/23/17 03/23/17 03/23/17 07:00 15:00 23:00 07:00 15:00 23:00 Intake Total 900 ml 1400 ml 480 ml Output Total 500 ml 300 ml 200 ml 350 ml Balance 400 ml -300 ml 1200 ml 130 ml Intake Oral 900 ml 1400 ml 480 ml Output Urine Total 500 ml 300 ml 200 ml 350 ml # Voids 2 4 # Bowel Movements 4 1 1 Result Diagram: 03/21/17 0900 Imaging Last Impressions Lumbar Spine MRI 03/18/17 0000 Signed Impressions: Service Date/Time: Saturday, March 18, 2017 15:42 - CONCLUSION: Multilevel disc protrusions and spondylitic changes.. Juanito Salinas MD Chest X-Ray 03/14/17 0000 Signed Impressions: Service Date/Time: Tuesday, March 14, 2017 16:11 - CONCLUSION: No acute disease. Emery Hector MD FACR Brain MRI 03/12/17 0000 Signed Impressions: Service Date/Time: February 10:26 - CONCLUSION: 1. No acute intracranial abnormality. 2. Atrophy. 3. Ventriculomegaly. This could relate to more centralized forms of atrophy but normal pressure hydrocephaly can have a similar appearance. Ramsey Guzman Jr., MD Abdomen Ultrasound 03/12/17 0000 Signed Impressions: Service Date/Time: February 17:01 - CONCLUSION: 1. Gallstone 2. Minimally complex 2 cm cyst in the left lobe of the liver. Juanito Calero MD Abdomen/Pelvis CT 03/08/17 1941 Signed Impressions: Service Date/Time: Wednesday, March 08, 2017 22:08 - CONCLUSION: 1. 3 cm calcified gallstone. 2. 2.5 cm low density lesion within the left lobe of the liver near the dome which is indeterminate on this unenhanced examination. MRI of the abdomen with contrast as an outpatient could be performed for further evaluation of this finding if clinically indicated. 3. Uncomplicated sigmoid diverticulosis. 4. Calcified non-obstructing right renal calculi with the larger of the two measuring 3 mm. 5. 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 Jason Spencer MD Renal Ultrasound 03/08/17 0000 Signed Impressions: Service Date/Time: Wednesday, March 08, 2017 22:47 - CONCLUSION: 1. Right kidney is slightly smaller than the left but otherwise no significant abnormality is identified. There is no hydronephrosis. 2. There is a single stone within the gallbladder. Juanito Le MD Objective Remarks GENERAL: No acute distress, resting comfortably. SKIN: Warm and dry. ENT: No nasal bleeding or discharge. Mucous membranes pink and moist. NECK: Trachea midline. No JVD. CARDIOVASCULAR: Regular rate and rhythm. RESPIRATORY: No accessory muscle use. Clear to auscultation. Breath sounds equal bilaterally. GASTROINTESTINAL: Abdomen soft, non-tender, slightly distended. MUSCULOSKELETAL: Extremities without clubbing, cyanosis, or edema. NEUROLOGICAL: Awake and alert. PSYCH: Mood and affect appropriate. Medications and IVs Current Medications Medications (Trade) Dose Ordered Sig/Severino Route Start Time Stop Time Status Last Admin (NS Flush) 2 ml UNSCH PRN IV FLUSH 03/08/17 22:45 (NS Flush) 2 ml BID IV FLUSH 03/09/17 09:00 03/23/17 08:39 (Tylenol) 650 mg Q6H PRN PO 03/08/17 22:45 ([place] 5-325 Mg) 1 tab Q4H PRN PO 03/08/17 22:45 03/23/17 08:40 (Jojo-Colace) 1 tab BID PO 03/09/17 09:00 03/20/17 21:52 (Milk Of Magnesia Liq) 30 ml Q12H PRN PO 03/08/17 22:45 (Senokot) 17.2 mg Q12H PRN PO 03/08/17 22:45 (Dulcolax Supp) 10 mg DAILY PRN RECTAL 03/08/17 22:45 (Coreg) 3.125 mg BID PO 03/09/17 09:00 03/23/17 08:38 (Aricept) 5 mg HS PO 03/09/17 21:00 03/22/17 21:50 (Zoloft) 100 mg DAILY PO 03/09/17 09:00 03/23/17 08:38 (Valium) 10 mg Q8H PRN PO 03/08/17 23:15 03/22/17 21:50 (Trusopt 2% Opth Soln) 1 drop TID EACH EYE 03/09/17 09:00 03/23/17 08:39 (Pilocar 4% Opth Soln) 1 drop BID EACH EYE 03/09/17 09:00 03/23/17 08:39 Miscellaneous Information Patient in critical care unit? Ass... Q361D .XX 03/09/17 23:45 (Lioresal) 5 mg TID PO 03/10/17 09:00 03/23/17 08:38 (Pill Splitter) 1 ea UNSCH PRN OTHER 03/10/17 09:00 (Lovenox Inj) 40 mg Q24H SQ 03/14/17 09:00 03/23/17 08:39 (Neurontin) 300 mg HS PO 03/17/17 21:00 03/22/17 21:50 (Lipitor) 40 mg HS PO 03/17/17 21:00 03/22/17 21:50 (Benadryl 2% Cream) 1 applic DAILY TOPICAL 03/18/17 09:00 03/23/17 08:39 (VANCOMYCIN for oral use only) 500 mg Q6H PO 03/20/17 09:00 03/23/17 08:38 (Dificid) 200 mg BID PO 03/20/17 09:00 03/30/17 08:59 03/23/17 08:38 (Questran 4 Gm Pkt) 4 gm Q8HR PO 03/20/17 14:00 03/23/17 04:42 A/P Problem List: (1) Intractable back pain ICD Code: M54.9 - Dorsalgia, unspecified Status: Chronic (2) Hypokalemia ICD Code: E87.6 - Hypokalemia Status: Resolved (3) EVANGELISTA (acute kidney injury) ICD Code: N17.9 - Acute kidney failure, unspecified (4) Renal stone ICD Code: N20.0 - Calculus of kidney (5) Dehydration ICD Code: E86.0 - Dehydration Status: Acute Assessment and Plan Encephalopathy Resolved. EEG negative. Dc'd off of Keppra by neurology. Brain MRI shows ventriculomegaly. - follow-up with neurology as outpatient. Back pain and muscle spasms Likely secondary to spinal stenosis as noted on CT scan report, MRI of the Spine multiple degenerative changes. Seems stable. - Currently Flexeril 5 mg 3 times a day. Continue gabapentin - oral pain medications. C. difficile returned positive Not responding to Flagyl. ID consulted, switched to vancomycin, stopped Aricept. - ID specialist increased Vancomycin to 500 mg QID - fidaxomicin added. Dementia Stable at this time. - Continues Zoloft 100 mg by mouth daily. - stopping Aricept since this could be making his diarrhea worse. Resume if stable. 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 - Continue Coreg 3.25 mg by mouth twice a day. - lisinopril. ARMAND Stable. - CPAP at night. Prophylaxis - GI - famotidine - DVT - Lovenox Discharge Planning Unable to discharge until Thursday per case management as meds can't be delivered , if cleared by infectious disease. Mega Martinez DO Mar 23, 2017 11:37
[2017-03-23 12:00] VITALS: BP 115/61; PULSE 69; RESP 20; TEMP 98.3; O2SAT 97
[2017-03-23 14:18] LABS: HEMATOCRIT 35.1 % (39.0-51.0); MEAN CELL VOLUME 91.4 FL (80.0-100.0); MEAN CORPUSCULAR HEMOGLOBIN 30.3 PG (27.0-34.0); MEAN CORPUSCULAR HGB CONC 33.2 % (32.0-36.0); PLATELET COUNT 248 TH/MM3 (150-450); RED BLOOD COUNT 3.84 MIL/MM3 (4.50-5.90); RED CELL DISTRIBUTION WIDTH 14.3 % (11.6-17.2); REVIEW FLAG FINAL
[2017-03-23 14:35] LABS: MAGNESIUM 2.2 MG/DL (1.5-2.5); POTASSIUM 4.4 MEQ/L (3.5-5.1)
[2017-03-23 16:00] VITALS: BP 177/74; PULSE 70; RESP 17; TEMP 98.5; O2SAT 97
[2017-03-23 20:00] VITALS: BP 122/58; PULSE 64; RESP 18; TEMP 98.5; O2SAT 96
[2017-03-23] MEDS: ATORVASTATIN 40 MG TAB PO SCH (21:57)
[2017-03-23] MEDS: DIAZEPAM 10 MG TAB PO PRN (21:57)
[2017-03-23] MEDS: DONEPEZIL HCL 5 MG TAB PO SCH (21:57)
[2017-03-23] MEDS: GABAPENTIN 300 MG CAP PO SCH (21:57)
[2017-03-24] VITALS (10 sets, daily range): BP systolic 118–143; BP diastolic 55–69; PULSE 68–88; RESP 16–20; TEMP 96.3–98.8; O2SAT 95–100
[2017-03-24] MEDS: VANCOMYCIN 500 MG VIAL (FOR ORAL USE ONLY) PO SCH ×4 (03:00→22:11)
[2017-03-24] MEDS: CHOLESTYRAMINE 4 GM PACKET PO SCH ×3 (04:26→22:13)
[2017-03-24] MEDS: ACETAMINOPHEN/HYDROcodone 325 MG/5 MG TAB PO PRN ×5 (04:26→22:12)
[2017-03-24] MEDS: FIDAXOMICIN 200 MG TAB PO SCH ×2 (08:00→22:12)
[2017-03-24] MEDS: BACLOFEN 10 MG TAB PO SCH ×3 (08:00→17:37)
[2017-03-24] MEDS: CARVEDILOL 3.125 MG TAB PO SCH ×2 (08:00→22:13)
[2017-03-24] MEDS: SERTRALINE HCL 100 MG TAB PO SCH (08:00)
[2017-03-24] MEDS: ENOXAPARIN SODIUM 40 MG/0.4 ML SYRINGE SQ SCH (08:01)
[2017-03-24] MEDS: diphenhydrAMINE HCL 2%/ZINC ACETATE 0.1% CREAM 30 APPLIC/30 GM TUBE TOPICAL SCH (08:02)
[2017-03-24] MEDS: DORZOLAMIDE 2% OPTH SOLN 200 DROP/10 ML BTLO EACH EYE SCH ×3 (08:02→17:44)
[2017-03-24] MEDS: PILOCARPINE HCL 4% EACH EYE SCH ×2 (08:03→22:14)
[2017-03-24] MEDS: SODIUM CHLORIDE 0.9% FLUSH 10 ML FLUSH IV FLUSH SCH ×2 (08:16→22:13)
[2017-03-24] MEDS: DOCUSATE SODIUM 50 MG/SENNA 8.6 MG TAB PO SCH (08:16)
[2017-03-24] MEDS: LEVOTHYROXINE SODIUM 75 MCG TAB PO SCH (12:00)
[2017-03-24] MEDS: ASPIRIN EC 81 MG TABEC PO SCH (12:32)
[2017-03-24] MEDS: ALLOPURINOL 100 MG TAB PO SCH (12:33)
[2017-03-24] MEDS: PANTOPRAZOLE SOD 20 MG DELAYED RELEASE TAB PO SCH (12:33)
[2017-03-24] MEDS: CLOPIDOGREL 75 MG TAB PO SCH (12:33)
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
[2017-03-24] MEDS: ISOSORBIDE MONONITRATE 60 MG TAB PO SCH (15:01)
--- NOTE | 2017-03-24 16:32 | RADRPT ---
EXAM DATE/TIME: 03/24/2017 15:33 [facility] COMPARISON: No previous studies available for comparison. INDICATIONS : Pain in right foot medial and lateral side. MEDICAL HISTORY : Myocardial infarction. Congestive heart failure. Hypercholesterolemia. Cataracts, Glaucoma. Dementia. CVA. Respiratory. Ulcer. Kidney stones.Eye surgery. Oral surgery. Brain shunt. Heart stents. Prostat ectomy. SURGICAL HISTORY : Eye surgery. Oral surgery. Brain shunt. Heart stents. Prostatectomy. ENCOUNTER: Subsequent ACUITY: 1 week PAIN SCORE: 0/10 LOCATION: Right foot FINDINGS: Three view examination of the right foot demonstrates no soft tissue swelling, dislocation, or fractu re. The tarsal bones appear intact. The interphalangeal and metatarsophalangeal joints are intact with mild osteoarthritic change. There is mild sclerosis and slight spurring. There is a small to mod erate spur off the inferior calcaneus. The calcaneus is intact. Bony mineralization is normal. CONCLUSION: 1. Osteoarthritic change. 2. Small to moderate spur of the inferior calcaneus. Mega Nunes MD on March 24, 2017 at 16:30 Board Certified Radiologist. This report was verified electronically.
[2017-03-24] MEDS: predniSONE 20 MG TAB PO SCH (17:37)
[2017-03-24] MEDS: DONEPEZIL HCL 5 MG TAB PO SCH (22:12)
[2017-03-24] MEDS: DIAZEPAM 10 MG TAB PO PRN (22:12)
[2017-03-24] MEDS: ATORVASTATIN 40 MG TAB PO SCH (22:12)
[2017-03-24] MEDS: GABAPENTIN 300 MG CAP PO SCH (22:13)
[2017-03-24] MEDS: FUROSEMIDE 40 MG TAB PO SCH (22:13)
[2017-03-25] VITALS (10 sets, daily range): BP systolic 103–119; BP diastolic 54–61; PULSE 61–83; RESP 18–20; TEMP 94.6–97.2; O2SAT 95–98
[2017-03-25] MEDS: VANCOMYCIN 500 MG VIAL (FOR ORAL USE ONLY) PO SCH ×4 (03:29→23:06)
[2017-03-25] MEDS: CHOLESTYRAMINE 4 GM PACKET PO SCH ×3 (05:37→23:06)
[2017-03-25] MEDS: LEVOTHYROXINE SODIUM 75 MCG TAB PO SCH (05:37)
[2017-03-25] MEDS: DORZOLAMIDE 2% OPTH SOLN 200 DROP/10 ML BTLO EACH EYE SCH ×3 (08:32→18:37)
[2017-03-25] MEDS: PILOCARPINE HCL 4% EACH EYE SCH ×2 (08:32→13:17)
[2017-03-25] MEDS: BACLOFEN 10 MG TAB PO SCH ×3 (08:34→18:33)
[2017-03-25] MEDS: ISOSORBIDE MONONITRATE 60 MG TAB PO SCH (08:34)
[2017-03-25] MEDS: SERTRALINE HCL 100 MG TAB PO SCH (08:36)
[2017-03-25] MEDS: CARVEDILOL 3.125 MG TAB PO SCH ×2 (08:36→23:07)
[2017-03-25] MEDS: ENOXAPARIN SODIUM 40 MG/0.4 ML SYRINGE SQ SCH (08:36)
[2017-03-25] MEDS: ASPIRIN EC 81 MG TABEC PO SCH (08:36)
[2017-03-25] MEDS: CLOPIDOGREL 75 MG TAB PO SCH (08:37)
[2017-03-25] MEDS: predniSONE 20 MG TAB PO SCH (08:37)
[2017-03-25] MEDS: FUROSEMIDE 40 MG TAB PO SCH ×2 (08:37→23:07)
[2017-03-25] MEDS: PANTOPRAZOLE SOD 20 MG DELAYED RELEASE TAB PO SCH (08:37)
[2017-03-25] MEDS: ALLOPURINOL 100 MG TAB PO SCH (08:37)
[2017-03-25] MEDS: SODIUM CHLORIDE 0.9% FLUSH 10 ML FLUSH IV FLUSH SCH ×2 (08:37→23:08)
[2017-03-25] MEDS: ACETAMINOPHEN/HYDROcodone 325 MG/5 MG TAB PO PRN ×4 (08:38→23:23)
[2017-03-25] MEDS: FIDAXOMICIN 200 MG TAB PO SCH ×2 (08:39→23:07)
[2017-03-25] MEDS: diphenhydrAMINE HCL 2%/ZINC ACETATE 0.1% CREAM 30 APPLIC/30 GM TUBE TOPICAL SCH (09:00)
[2017-03-25 14:02] LABS: HEMOGLOBIN A1b 2.1 %; HEMOGLOBIN Ao 84.5 %; HEMOGLOBIN LA1C 1.5 %; HEMOGLOBIN P3 4.1 %
--- NOTE | 2017-03-25 16:25 | HHI.PR ---
Subjective Remarks The patient said that his gouty pain was much improved. He also does diarrhea was improved. He shared many highlights of his life with me. No acute complaints at this time. Objective Vitals Vital Signs Date Time Temp Pulse Resp B/P (MAP) Pulse Ox O2 Delivery O2 Flow Rate FiO2 03/25/17 14:45 96.4 03/25/17 12:00 94.6 61 18 105/56 (72) 96 03/25/17 10:38 97 21 03/25/17 09:56 83 03/25/17 08:02 96.5 64 18 103/54 (70) 98 03/25/17 07:30 96 21 03/25/17 07:30 96 03/25/17 04:08 76 03/25/17 04:00 96.2 69 20 119/61 (80) 95 03/24/17 23:58 97.6 76 18 137/68 (91) 97 03/24/17 23:13 18 03/24/17 21:00 97.7 75 16 118/55 (76) 96 03/24/17 18:20 99 21 03/24/17 16:50 97.5 87 20 130/68 (88) 100 I/O 03/24/17 03/24/17 03/24/17 03/25/17 03/25/17 03/25/17 07:00 15:00 23:00 07:00 15:00 23:00 Intake Total 950 ml 480 ml 520 ml Output Total 400 ml 400 ml 250 ml Balance 950 ml 80 ml 120 ml -250 ml Intake Oral 950 ml 480 ml 520 ml Output Urine Total 400 ml 400 ml 250 ml # Voids 6 1 # Bowel Movements 1 3 1 Result Diagram: 03/23/17 1333 03/23/17 1333 Imaging Last Impressions Foot X-Ray 03/24/17 0000 Signed Impressions: Service Date/Time: Friday, March 24, 2017 15:33 - CONCLUSION: 1. Osteoarthritic change. 2. Small to moderate spur of the inferior calcaneus. Mega Nunes MD Lumbar Spine MRI 03/18/17 0000 Signed Impressions: Service Date/Time: Saturday, March 18, 2017 15:42 - CONCLUSION: Multilevel disc protrusions and spondylitic changes.. Juanito Salinas MD Chest X-Ray 03/14/17 0000 Signed Impressions: Service Date/Time: Tuesday, March 14, 2017 16:11 - CONCLUSION: No acute disease. Emery Hector MD FACR Brain MRI 03/12/17 Signed Impressions: Service Date/Time: February 10:26 - CONCLUSION: 1. No acute intracranial abnormality. 2. Atrophy. 3. Ventriculomegaly. This could relate to more centralized forms of atrophy but normal pressure hydrocephaly can have a similar appearance. Ramsey Guzman Jr., MD Abdomen Ultrasound 03/12/17 Signed Impressions: Service Date/Time: February 17:01 - CONCLUSION: 1. Gallstone 2. Minimally complex 2 cm cyst in the left lobe of the liver. Juanito Calero MD Abdomen/Pelvis CT 03/08/171940 Signed Impressions: Service Date/Time: Wednesday, March 08, 2017 22:08 - CONCLUSION: 1. 3 cm calcified gallstone. 2. 2.5 cm low density lesion within the left lobe of the liver near the dome which is indeterminate on this unenhanced examination. MRI of the abdomen with contrast as an outpatient could be performed for further evaluation of this finding if clinically indicated. 3. Uncomplicated sigmoid diverticulosis. 4. Calcified non-obstructing right renal calculi with the larger of the two measuring 3 mm. 5. 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 Jason Spencer MD Renal Ultrasound 03/08/17 Signed Impressions: Service Date/Time: Wednesday, March 08, 2017 22:47 - CONCLUSION: 1. Right kidney is slightly smaller than the left but otherwise no significant abnormality is identified. There is no hydronephrosis. 2. There is a single stone within the gallbladder. Juanito Le MD Objective Remarks GENERAL: No acute distress, resting comfortably. SKIN: Warm and dry. ENT: No nasal bleeding or discharge. Mucous membranes pink and moist. NECK: Trachea midline. No JVD. CARDIOVASCULAR: Regular rate and rhythm. RESPIRATORY: No accessory muscle use. Clear to auscultation. Breath sounds equal bilaterally. GASTROINTESTINAL: Abdomen soft, non-tender, slightly distended. MUSCULOSKELETAL: Right lateral malleolus tender to palpation. Slight swelling in right foot. NEUROLOGICAL: Awake and alert. PSYCH: Mood and affect appropriate. Medications and IVs Current Medications Medications (Trade) Dose Ordered Sig/Severino Route Start Time Stop Time Status Last Admin (NS Flush) 2 ml UNSCH PRN IV FLUSH 03/08/17 22:45 (NS Flush) 2 ml BID IV FLUSH 03/09/17 09:00 03/25/17 08:37 (Tylenol) 650 mg Q6H PRN PO 03/08/17 22:45 ([place] 5-325 Mg) 1 tab Q4H PRN PO 03/08/17 22:45 03/25/17 13:19 (Milk Of Magnesia Liq) 30 ml Q12H PRN PO 03/08/17 22:45 (Senokot) 17.2 mg Q12H PRN PO 03/08/17 22:45 (Dulcolax Supp) 10 mg DAILY PRN RECTAL 03/08/17 22:45 (Coreg) 3.125 mg BID PO 03/09/17 09:00 03/25/17 08:36 (Aricept) 5 mg HS PO 03/09/17 21:00 03/24/17 22:12 (Zoloft) 100 mg DAILY PO 03/09/17 09:00 03/25/17 08:36 (Valium) 10 mg Q8H PRN PO 03/08/17 23:15 03/24/17 22:12 (Trusopt 2% Opth Soln) 1 drop TID EACH EYE 03/09/17 09:00 03/25/17 13:00 (Pilocar 4% Opth Soln) 1 drop BID EACH EYE 03/09/17 09:00 03/25/17 13:17 Miscellaneous Information Patient in critical care unit? Ass... Q361D .XX 03/09/17 23:45 (Lioresal) 5 mg TID PO 03/10/17 09:00 03/25/17 13:19 (Pill Splitter) 1 ea UNSCH PRN OTHER 03/10/17 09:00 (Lovenox Inj) 40 mg Q24H SQ 03/14/17 09:00 03/25/17 08:36 (Neurontin) 300 mg HS PO 03/17/17 21:00 03/24/17 22:13 (Lipitor) 40 mg HS PO 03/17/17 21:00 03/24/17 22:12 (Benadryl 2% Cream) 1 applic DAILY TOPICAL 03/18/17 09:00 03/24/17 08:02 (VANCOMYCIN for oral use only) 500 mg Q6H PO 03/20/17 09:00 03/25/17 08:38 (Dificid) 200 mg BID PO 03/20/17 09:00 03/30/17 08:59 03/25/17 08:39 (Questran 4 Gm Pkt) 4 gm Q8HR PO 03/20/17 14:00 03/25/17 05:37 (Zyloprim) 100 mg DAILY PO 03/24/17 12:00 03/25/17 08:37 (Ecotrin Ec) 81 mg DAILY PO 03/24/17 12:00 03/25/17 08:36 (Plavix) 75 mg DAILY PO 03/24/17 12:00 03/25/17 08:37 (Lasix) 40 mg BID PO 03/24/17 21:00 03/25/17 08:37 (Imdur) 60 mg DAILY PO 03/24/17 12:00 03/25/17 08:34 (Synthroid) 75 mcg DAILY@0600 PO 03/24/17 12:00 03/25/17 05:37 (Protonix) 20 mg DAILY PO 03/24/17 12:00 03/25/17 08:37 (Deltasone) 40 mg DAILY PO 03/24/17 14:45 03/25/17 08:37 A/P Problem List: (1) Intractable back pain ICD Code: M54.9 - Dorsalgia, unspecified Status: Chronic (2) Hypokalemia ICD Code: E87.6 - Hypokalemia Status: Resolved (3) EVANGELISTA (acute kidney injury) ICD Code: N17.9 - Acute kidney failure, unspecified (4) Renal stone ICD Code: N20.0 - Calculus of kidney (5) Dehydration ICD Code: E86.0 - Dehydration Status: Acute Assessment and Plan Encephalopathy Resolved. EEG negative. Dc'd off of Keppra by neurology. Brain MRI shows ventriculomegaly. - follow-up with neurology as outpatient. Back pain and muscle spasms Likely secondary to spinal stenosis as noted on CT scan report, MRI of the Spine multiple degenerative changes. Seems stable. - Currently Flexeril 5 mg 3 times a day. Continue gabapentin - oral pain medications. C. difficile returned positive Not responding to Flagyl. ID consulted, switched to vancomycin and Difcid. - continue fidaxomicin and PO vancomycin per ID. Improving. Clarify meds with ID prior to d/c. Dementia Stable at this time. - Continues Zoloft 100 mg by mouth daily. - resume Aricept. Acute gout flare The pt has pain in his right foot. X ray with arthritic changes. - resume allopurinol. - prednisone 40 mg daily. Switch to 20 mg daily. 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 - Continue Coreg 3.25 mg by mouth twice a day. - lisinopril. ARMAND Stable. - CPAP at night. Hypoglycemia Glucose elevated 03/23. A1c 6.5%. - lifestyle modifications. - wean prednisone. - follow-up with PCP. Prophylaxis - GI - famotidine - DVT - Lovenox Discharge Planning D/c to SNF when bed available. Mega Martinez DO Mar 25, 2017 16:25
[2017-03-25] MEDS: DIAZEPAM 10 MG TAB PO PRN (23:06)
[2017-03-25] MEDS: ATORVASTATIN 40 MG TAB PO SCH (23:07)
[2017-03-25] MEDS: DONEPEZIL HCL 5 MG TAB PO SCH (23:07)
[2017-03-25] MEDS: GABAPENTIN 300 MG CAP PO SCH (23:07)
[2017-03-26] VITALS (7 sets, daily range): BP systolic 106–139; BP diastolic 57–78; PULSE 61–66; RESP 16–18; TEMP 97.1–97.6; O2SAT 92–100
[2017-03-26] MEDS: VANCOMYCIN 500 MG VIAL (FOR ORAL USE ONLY) PO SCH ×3 (03:00→14:26)
[2017-03-26] MEDS: LEVOTHYROXINE SODIUM 75 MCG TAB PO SCH (05:29)
[2017-03-26] MEDS: CHOLESTYRAMINE 4 GM PACKET PO SCH ×2 (05:29→14:26)
[2017-03-26] MEDS ORDERED: predniSONE 20 MG TAB PO SCH (09:00)
[2017-03-26] MEDS: ISOSORBIDE MONONITRATE 60 MG TAB PO SCH (09:55)
[2017-03-26] MEDS: CLOPIDOGREL 75 MG TAB PO SCH (09:55)
[2017-03-26] MEDS: FUROSEMIDE 40 MG TAB PO SCH (09:55)
[2017-03-26] MEDS: ASPIRIN EC 81 MG TABEC PO SCH (09:56)
[2017-03-26] MEDS: ACETAMINOPHEN/HYDROcodone 325 MG/5 MG TAB PO PRN ×2 (09:56→14:29)
[2017-03-26] MEDS: ALLOPURINOL 100 MG TAB PO SCH (09:56)
[2017-03-26] MEDS: FIDAXOMICIN 200 MG TAB PO SCH (09:56)
[2017-03-26] MEDS: PANTOPRAZOLE SOD 20 MG DELAYED RELEASE TAB PO SCH (09:56)
[2017-03-26] MEDS: SERTRALINE HCL 100 MG TAB PO SCH (09:56)
[2017-03-26] MEDS: BACLOFEN 10 MG TAB PO SCH ×2 (09:56→14:25)
[2017-03-26] MEDS: CARVEDILOL 3.125 MG TAB PO SCH (09:56)
[2017-03-26] MEDS: PILOCARPINE HCL 4% EACH EYE SCH (09:57)
[2017-03-26] MEDS: DORZOLAMIDE 2% OPTH SOLN 200 DROP/10 ML BTLO EACH EYE SCH ×2 (09:57→14:25)
[2017-03-26] MEDS: ENOXAPARIN SODIUM 40 MG/0.4 ML SYRINGE SQ SCH (09:57)
[2017-03-26] MEDS: SODIUM CHLORIDE 0.9% FLUSH 10 ML FLUSH IV FLUSH SCH (09:57)
[2017-03-26] MEDS: diphenhydrAMINE HCL 2%/ZINC ACETATE 0.1% CREAM 30 APPLIC/30 GM TUBE TOPICAL SCH (09:57)
--- NOTE | 2017-03-26 10:54 | HHI.PR ---
Subjective Remarks The patient said that he was feeling "fine as frog hairs split 3 ways". He was anxious to go to a half-way facility. He had no acute complaints. Discussed with case management. Objective Vitals Vital Signs Date Time Temp Pulse Resp B/P (MAP) Pulse Ox O2 Delivery O2 Flow Rate FiO2 03/26/17 08:46 97.4 61 18 139/61 (87) 100 03/26/17 05:40 Bi-Pap 03/26/17 04:42 97.6 63 18 106/68 (81) 99 03/26/17 04:29 93 21 03/26/17 01:43 93 21 03/26/17 01:06 97.1 66 16 108/57 (74) 97 03/26/17 00:41 18 03/26/17 00:00 Bi-Pap 03/25/17 23:41 68 03/25/17 23:14 97.2 64 19 115/55 (75) 96 03/25/17 14:45 96.4 03/25/17 12:00 94.6 61 18 105/56 (72) 96 I/O 03/25/17 03/25/17 03/25/17 03/26/17 03/26/17 03/26/17 07:00 15:00 23:00 07:00 15:00 23:00 Intake Total 520 ml 440 ml Output Total 400 ml 250 ml 550 ml Balance 120 ml -250 ml -110 ml Intake Oral 520 ml 440 ml Output Urine Total 400 ml 250 ml 550 ml # Voids 1 # Bowel Movements 1 1 Result Diagram: 03/23/17 1333 03/23/17 1333 Imaging Last Impressions Foot X-Ray 03/24/17 0000 Signed Impressions: Service Date/Time: Friday, March 24, 2017 15:33 - CONCLUSION: 1. Osteoarthritic change. 2. Small to moderate spur of the inferior calcaneus. Mega Nunes MD Lumbar Spine MRI 03/18/17 0000 Signed Impressions: Service Date/Time: Saturday, March 18, 2017 15:42 - CONCLUSION: Multilevel disc protrusions and spondylitic changes.. Juanito Salinas MD Chest X-Ray 03/14/17 0000 Signed Impressions: Service Date/Time: Tuesday, March 14, 2017 16:11 - CONCLUSION: No acute disease. Emery Hector MD FACR Brain MRI 03/12/17 0000 Signed Impressions: Service Date/Time: February 10:26 - CONCLUSION: 1. No acute intracranial abnormality. 2. Atrophy. 3. Ventriculomegaly. This could relate to more centralized forms of atrophy but normal pressure hydrocephaly can have a similar appearance. Ramsey Guzman Jr., MD Abdomen Ultrasound 03/12/17 0000 Signed Impressions: Service Date/Time: February 17:01 - CONCLUSION: 1. Gallstone 2. Minimally complex 2 cm cyst in the left lobe of the liver. Juanito Calero MD Abdomen/Pelvis CT 03/08/171940 Signed Impressions: Service Date/Time: Wednesday, March 08, 2017 22:08 - CONCLUSION: 1. 3 cm calcified gallstone. 2. 2.5 cm low density lesion within the left lobe of the liver near the dome which is indeterminate on this unenhanced examination. MRI of the abdomen with contrast as an outpatient could be performed for further evaluation of this finding if clinically indicated. 3. Uncomplicated sigmoid diverticulosis. 4. Calcified non-obstructing right renal calculi with the larger of the two measuring 3 mm. 5. 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 Jason Spencer MD Renal Ultrasound 03/08/17 0000 Signed Impressions: Service Date/Time: Wednesday, March 08, 2017 22:47 - CONCLUSION: 1. Right kidney is slightly smaller than the left but otherwise no significant abnormality is identified. There is no hydronephrosis. 2. There is a single stone within the gallbladder. Juanito Le MD Objective Remarks GENERAL: No acute distress, resting comfortably. SKIN: Warm and dry. ENT: No nasal bleeding or discharge. Mucous membranes pink and moist. NECK: Trachea midline. No JVD. CARDIOVASCULAR: Regular rate and rhythm. RESPIRATORY: No accessory muscle use. Clear to auscultation. Breath sounds equal bilaterally. GASTROINTESTINAL: Abdomen soft, non-tender, slightly distended. MUSCULOSKELETAL: Right lateral malleolus tender to palpation. Slight swelling in right foot. Improved. NEUROLOGICAL: Awake and alert. PSYCH: Mood and affect appropriate. Medications and IVs Current Medications Medications (Trade) Dose Ordered Sig/Severino Route Start Time Stop Time Status Last Admin (NS Flush) 2 ml UNSCH PRN IV FLUSH 03/08/17 22:45 (NS Flush) 2 ml BID IV FLUSH 03/09/17 09:00 03/26/17 09:57 (Tylenol) 650 mg Q6H PRN PO 03/08/17 22:45 ([place] 5-325 Mg) 1 tab Q4H PRN PO 03/08/17 22:45 03/26/17 09:56 (Milk Of Magnlynnette Liq) 30 ml Q12H PRN PO 03/08/17 22:45 (Senokot) 17.2 mg Q12H PRN PO 03/08/17 22:45 (Dulcolax Supp) 10 mg DAILY PRN RECTAL 03/08/17 22:45 (Coreg) 3.125 mg BID PO 03/09/17 09:00 03/26/17 09:56 (Aricept) 5 mg HS PO 03/09/17 21:00 03/25/17 23:07 (Zoloft) 100 mg DAILY PO 03/09/17 09:00 03/26/17 09:56 (Valium) 10 mg Q8H PRN PO 03/08/17 23:15 03/25/17 23:06 (Trusopt 2% Opth Soln) 1 drop TID EACH EYE 03/09/17 09:00 03/26/17 09:57 (Pilocar 4% Opth Soln) 1 drop BID EACH EYE 03/09/17 09:00 03/26/17 09:57 Miscellaneous Information Patient in critical care unit? Ass... Q361D .XX 03/09/17 23:45 (Lioresal) 5 mg TID PO 03/10/17 09:00 03/26/17 09:56 (Pill Splitter) 1 ea UNSCH PRN OTHER 03/10/17 09:00 (Lovenox Inj) 40 mg Q24H SQ 03/14/17 09:00 03/26/17 09:57 (Neurontin) 300 mg HS PO 03/17/17 21:00 03/25/17 23:07 (Lipitor) 40 mg HS PO 03/17/17 21:00 03/25/17 23:07 (Benadryl 2% Cream) 1 applic DAILY TOPICAL 03/18/17 09:00 03/26/17 09:57 (VANCOMYCIN for oral use only) 500 mg Q6H PO 03/20/17 09:00 03/26/17 09:57 (Dificid) 200 mg BID PO 03/20/17 09:00 03/30/17 08:59 03/26/17 09:56 (Questran 4 Gm Pkt) 4 gm Q8HR PO 03/20/17 14:00 03/26/17 05:29 (Zyloprim) 100 mg DAILY PO 03/24/17 12:00 03/26/17 09:56 (Ecotrin Ec) 81 mg DAILY PO 03/24/17 12:00 03/26/17 09:56 (Plavix) 75 mg DAILY PO 03/24/17 12:00 03/26/17 09:55 (Lasix) 40 mg BID PO 03/24/17 21:00 03/26/17 09:55 (Imdur) 60 mg DAILY PO 03/24/17 12:00 03/26/17 09:55 (Synthroid) 75 mcg DAILY@0600 PO 03/24/17 12:00 03/26/17 05:29 (Protonix) 20 mg DAILY PO 03/24/17 12:00 03/26/17 09:56 (Deltasone) 20 mg DAILY PO 03/26/17 09:00 03/26/17 09:56 A/P Problem List: (1) Intractable back pain ICD Code: M54.9 - Dorsalgia, unspecified Status: Chronic (2) Hypokalemia ICD Code: E87.6 - Hypokalemia Status: Resolved (3) EVANGELISTA (acute kidney injury) ICD Code: N17.9 - Acute kidney failure, unspecified (4) Renal stone ICD Code: N20.0 - Calculus of kidney (5) Dehydration ICD Code: E86.0 - Dehydration Status: Acute Assessment and Plan Encephalopathy Resolved. EEG negative. Dc'd off of Keppra by neurology. Brain MRI shows ventriculomegaly. - follow-up with neurology as outpatient. Back pain and muscle spasms Likely secondary to spinal stenosis as noted on CT scan report, MRI of the Spine multiple degenerative changes. Seems stable. - Currently Flexeril 5 mg 3 times a day. Continue gabapentin - oral pain medications. C. difficile returned positive Not responding to Flagyl. ID consulted, switched to vancomycin and Difcid. - continue fidaxomicin and PO vancomycin per ID. Improving. Clarify meds with ID prior to d/c. Dementia Stable at this time. - Continues Zoloft 100 mg by mouth daily. - resume Aricept. Acute gout flare The pt has pain in his right foot. X ray with arthritic changes. Improved. - resume allopurinol. - prednisone 40 mg daily. Switch to 20 mg daily. Continue to taper gradually. 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 - Continue Coreg 3.25 mg by mouth twice a day. - lisinopril. ARMAND Stable. - CPAP at night. Hypoglycemia Glucose elevated 03/23. A1c 6.5%. - lifestyle modifications. - wean prednisone. - follow-up with PCP. - Diet recommendations per nutrition. Prophylaxis - GI - famotidine - DVT - Lovenox Discharge Planning D/c to SNF when bed available. Mega Martinez DO Mar 26, 2017 10:54
[2017-03-26] MEDS ORDERED: GLUCAGON 1 MG/ML VIAL OTHER PRN (11:45)
[2017-03-26] MEDS ORDERED: DEXTROSE 50% IN WATER 50 ML VIAL(D50) IV PUSH PRN (11:45)
[2017-03-26] MEDS ORDERED: INSULIN ASPART SUPPLEMENTAL SCALE SQ SCH (12:00)
--- NOTE | 2017-03-26 14:20 | HHI.DS ---
Discharge Summary Admission Date Mar 08, 2017 at 23:08 Discharge Date: Mar 26, 2017 Admitting Diagnosis (1) Intractable back pain ICD Code: M54.9 - Dorsalgia, unspecified Status: Chronic (2) Hypokalemia ICD Code: E87.6 - Hypokalemia Status: Resolved (3) EVANGELISTA (acute kidney injury) ICD Code: N17.9 - Acute kidney failure, unspecified (4) Renal stone ICD Code: N20.0 - Calculus of kidney (5) Dehydration ICD Code: E86.0 - Dehydration Status: Acute (6) C. difficile colitis ICD Code: A04.7 - Enterocolitis due to Clostridium difficile Diagnosis: Principal Procedures None Brief History - From Admission This is an 81-year-old male with a PMH of Prostate CA, h/o CVA, HTN, Renal Stones and Sleep Apnea who was brought to the ER by EMS secondary to complaints of severe back pain. Difficult to obtain history from patient secondary to severity of symptoms. Denies recent injury/trauma. No fever, chills, weakness or incontinence. Seen at [facility] for similar complaints on 03/08/17, s/p CT Abd/Pelvis w/ nonobstructing right renal calculous w/o hydronephrosis, large partially calcified gallstone w/ no evidence of cholecystitis and lumbar spondylosis w/ multilevel disk disease worse at L5-S1 w/ severe leftward neural foraminal narrowing. Was Rx Baclofen and d/c'd home. States pain became unbearable tonight. No h/o similar symptoms. Reports back pain bilateral flank , no radicular pain. On arrival, BP 156/67, HR 57, O2 sat 100% on RA, Afebrile. WBC 12.9. K+ 2.8, creatinine 3.03, previously 1.35 on 01/06/13. UA negative. CT Abd/Pelvis w/ 3cm calcified gallstone, 2.5cm low density lesion left lobe liver, recommendation for outpatient MRI, non-obstructing right renal calculi, multi-level spinal stenosis. S/p Morphine/Zofran in ER w/ minimal improvement in pain complaints. CBC/BMP: 03/23/17 1333 03/23/17 1333 Imaging Last Impressions Foot X-Ray 03/24/17 0000 Signed Impressions: Service Date/Time: Friday, March 24, 2017 15:33 - CONCLUSION: 1. Osteoarthritic change. 2. Small to moderate spur of the inferior calcaneus. Mega Nunes MD Lumbar Spine MRI 03/18/17 0000 Signed Impressions: Service Date/Time: Saturday, March 18, 2017 15:42 - CONCLUSION: Multilevel disc protrusions and spondylitic changes.. Juanito Salinas MD Chest X-Ray 03/14/17 0000 Signed Impressions: Service Date/Time: Tuesday, March 14, 2017 16:11 - CONCLUSION: No acute disease. Emery Hector MD FACR Brain MRI 03/12/17 0000 Signed Impressions: Service Date/Time: February 10:26 - CONCLUSION: 1. No acute intracranial abnormality. 2. Atrophy. 3. Ventriculomegaly. This could relate to more centralized forms of atrophy but normal pressure hydrocephaly can have a similar appearance. Ramsey Guzman Jr., MD Abdomen Ultrasound 03/12/17 0000 Signed Impressions: Service Date/Time: February 17:01 - CONCLUSION: 1. Gallstone 2. Minimally complex 2 cm cyst in the left lobe of the liver. Juanito Calero MD Abdomen/Pelvis CT 03/08/17 194 Signed Impressions: Service Date/Time: Wednesday, March 08, 2017 22:08 - CONCLUSION: 1. 3 cm calcified gallstone. 2. 2.5 cm low density lesion within the left lobe of the liver near the dome which is indeterminate on this unenhanced examination. MRI of the abdomen with contrast as an outpatient could be performed for further evaluation of this finding if clinically indicated. 3. Uncomplicated sigmoid diverticulosis. 4. Calcified non-obstructing right renal calculi with the larger of the two measuring 3 mm. 5. 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 Jason Spencer MD Renal Ultrasound 03/08/17 0000 Signed Impressions: Service Date/Time: Wednesday, March 08, 2017 22:47 - CONCLUSION: 1. Right kidney is slightly smaller than the left but otherwise no significant abnormality is identified. There is no hydronephrosis. 2. There is a single stone within the gallbladder. Juanito Le MD PE at Discharge GENERAL: No acute distress, resting comfortably. SKIN: Warm and dry. ENT: No nasal bleeding or discharge. Mucous membranes pink and moist. NECK: Trachea midline. No JVD. CARDIOVASCULAR: Regular rate and rhythm. RESPIRATORY: No accessory muscle use. Clear to auscultation. Breath sounds equal bilaterally. GASTROINTESTINAL: Abdomen soft, non-tender, slightly distended. MUSCULOSKELETAL: Right lateral malleolus tender to palpation. Slight swelling in right foot. Improved. NEUROLOGICAL: Awake and alert. PSYCH: Mood and affect appropriate. Hospital Course Encephalopathy EEG negative. Neurology was consulted. Keppra was discontinued by neurology. Brain MRI shows ventriculomegaly. He will follow-up with neurology as an outpatient. He was continue on Aricept for dementia. Back pain and muscle spasms Spinal stenosis noted on CT scan report. MRI of the spine with multiple degenerative changes. Seems stable. Currently on Flexeril 5 mg 3 times a day and gabapentin. He will continue oral pain medications as needed. C. difficile The pt did not respond to Flagyl. ID was consulted. He was switched to vancomycin and Difcid. He will continue fidaxomicin and PO vancomycin per ID to complete a course. Acute gout flare The pt had pain in his right foot. X ray with arthritic changes. We resumed his allopurinol. He will complete a prednisone taper. His symptoms were markedly improved. Hypoglycemia Glucose was noted to be elevated. A1c was 6.5%. Lifestyle modifications were recommended. We will wean off the prednisone. He spoke with a all around patternmaker. He will follow-up with his PCP. Pt Condition on Discharge: Stable Discharge Disposition: Discharge to SNF Discharge Time: > 30 minutes Discharge Instructions Follow up Referrals: Neurology - 10 Days with Javed Carr MD PCP Follow-up - 1 Week SNF[facility]/ [facility] New Orders: BASIC METABOLIC PROF - 2-3 Days New Medications: Atorvastatin (Atorvastatin) 40 Mg Tab 40 MG PO HS for Cholesterol Management, #30 TAB 0 Refills Diazepam (Valium) 5 Mg Tab 5 MG PO TID PRN for Muscle spasm, #14 TAB 0 Refills Potassium Chloride ER (Potassium Chloride ER) 20 Meq Tab 20 MEQ PO DAILY for Electrolyte Replacement, #7 TAB 0 Refills Prednisone (Prednisone) 10 Mg Tab 10 MG PO DAILY for Gout for 3 Days, #3 TAB 0 Refills Vancomycin (Vancomycin) 125 Mg Cap 125 MG PO QID for Infection for 7 Days, CAP 0 Refills Atorvastatin (Atorvastatin) 40 Mg Tab 40 MG PO HS for cholesterol for 30 Days, TAB Baclofen (Baclofen) 10 Mg Tab 5 MG PO TID PRN for muscle spasm for 7 Days, #20 TAB Cholestyramine (Cholestyramine) 4 Gm/Pkt Powd 4 GM PO Q8HR for Stomach for 7 Days, GM 1 packet contains 4 grams of cholestyramine. Fidaxomicin (Dificid) 200 Mg Tab 200 MG PO BID for C diff for 3 Days, #6 TAB Gabapentin (Neurontin) 300 Mg Cap 300 MG PO HS for Neuropathy, #90 CAP Hydrocodone-Acetaminophen (Hydrocodone-Acetaminophen) 5-325 mg Tab 1 TAB PO Q4H PRN for PAIN SCALE 1 TO 10, #14 TAB Metronidazole (Flagyl) 500 Mg Tab 500 MG PO TID for infectino, #36 TAB Continued Medications: Allopurinol (Allopurinol) 100 Mg Tab 100 MG PO DAILY for Gout, #30 TAB [address] (Aspirin EC) 81 Mg Tabdr 81 MG PO DAILY, TAB 0 Refills Baclofen (Baclofen) 10 Mg Tab 10 MG PO TID for Muscle Spasm, #90 TAB 0 Refills (This prescription has been renewed) Carvedilol (Carvedilol) 3.125 Mg Tab 3.125 MG PO BID, #60 TAB 0 Refills Clopidogrel (Plavix) 75 Mg Tab 75 MG PO DAILY for Blood Clot Prevention, #30 TAB 0 Refills Donepezil (Donepezil) 5 Mg Tab 5 MG PO HS for Dementia, #30 TAB 0 Refills Dorzolamide Opth Drops (Dorzolamide Opth Drops) 2% Soln 1 DROP EACH EYE TID for Glaucoma, #1 BOTTLE 0 Refills Furosemide (Furosemide) 40 Mg Tab 40 MG PO BID, #60 TAB 0 Refills TAKE 40 MG AM AND 20 MG PM Isosorbide Mononitrate ER (Isosorbide Mononitrate ER) 60 Mg Tab 60 MG PO DAILY for Prevent Chest Pain, #30 TAB 0 Refills Levothyroxine (Levothyroxine) 75 Mcg Tab 75 MCG PO DAILY for Thyroid, #30 TAB 0 Refills Omeprazole (Omeprazole) 20 Mg Tab 20 MG PO DAILY, #30 TAB 0 Refills Pilocarpine Opth 4% (Pilocarpine Opth 4%) 4 % Soln 1 DROP EACH EYE BID for Glaucoma, #1 BOTTLE 0 Refills Sertraline (Sertraline) 100 Mg Tab 100 MG PO DAILY, #30 TAB 0 Refills Discontinued Medications: Atorvastatin (Atorvastatin) 80 Mg Tab 80 MG PO HS for Cholesterol Management, #30 TAB 0 Refills Gabapentin (Gabapentin) 100 Mg Cap 100 MG PO BID, #60 CAP 0 Refills Potassium Bicarbonate (Effer-K) 25 Meq Tab 1 TAB PO BID TAKE FOR 5 DAYS STARTING 03/02/17 Mega Martinez DO Mar 26, 2017 14:20
[2017-03-26] MEDS ORDERED: CHOL4POW4 PO (14:55)
[2017-03-26] MEDS ORDERED: VANC125C3 PO (14:55)
[2017-03-26] MEDS ORDERED: BACL10TA PO (14:55)
[2017-03-26] MEDS ORDERED: ATOR40TA16 PO (14:55)
[2017-03-26] MEDS ORDERED: PRED10 PO (14:55)
[2017-03-26] MEDS ORDERED: DIFI200T PO (14:55)
[2017-03-26] MEDS ORDERED: POTA-163 PO (14:55)
[2017-03-26] MEDS ORDERED: NEUR300C PO (14:55)
[2017-03-26] MEDS ORDERED: HYDR-3516 PO (15:49)
[2017-03-26] MEDS ORDERED: DIAZ5 PO (16:03)
== END 2017-03-26 16:16 | DRG 551 ==
LOC: NEPD 19:16 → NEDA 23:08 → N06B 03-09 00:39 → HIMN 03-09 17:30 → N05B 03-13 23:51
PROVIDERS: ADMIT Hospitalist; ATTEND Hospitalist
PROC: 0T9B70Z Drainage of Bladder with Drainage Device, Via Natural or Artificial Opening (ICD-10-PCS; principal; 2017-03-08)
DX: M48.06 Spinal stenosis, lumbar region (principal); G93.40 Encephalopathy, unspecified; N17.9 Acute kidney failure, unspecified; A04.7 Enterocolitis due to Clostridium difficile; I50.22 Chronic systolic (congestive) heart failure; N39.0 Urinary tract infection, site not specified; I11.0 Hypertensive heart disease with heart failure; G93.89 Other specified disorders of brain; G30.9 Alzheimer's disease, unspecified; F02.80 Dementia in other diseases classified elsewhere, unspecified severity, without behavioral disturbance, psychotic disturbance, mood disturbance, and anxiety; G25.3 Myoclonus; E86.0 Dehydration; E87.6 Hypokalemia; E78.00 Pure hypercholesterolemia, unspecified; Z86.73 Personal history of transient ischemic attack (TIA), and cerebral infarction without residual deficits; M19.90 Unspecified osteoarthritis, unspecified site; Z87.442 Personal history of urinary calculi; Z87.19 Personal history of other diseases of the digestive system; N20.0 Calculus of kidney; K80.20 Calculus of gallbladder without cholecystitis without obstruction; Z85.46 Personal history of malignant neoplasm of prostate; G47.33 Obstructive sleep apnea (adult) (pediatric); M47.896 Other spondylosis, lumbar region; Z87.891 Personal history of nicotine dependence; M62.838 Other muscle spasm; Z87.440 Personal history of urinary (tract) infections; I25.10 Atherosclerotic heart disease of native coronary artery without angina pectoris; Z95.5 Presence of coronary angioplasty implant and graft; H40.9 Unspecified glaucoma; I27.2 Other secondary pulmonary hypertension; I07.1 Rheumatic tricuspid insufficiency; E03.9 Hypothyroidism, unspecified; K57.30 Diverticulosis of large intestine without perforation or abscess without bleeding; M10.9 Gout, unspecified; R56.9 Unspecified convulsions; M79.671 Pain in right foot; K76.9 Liver disease, unspecified; R73.9 Hyperglycemia, unspecified
CPT/HCPCS: 36600; 51703; 70551; 71020; 72148; 73630; 74176; 76700; 76775; 76937; 80048; 80053; 80069; 80076; 81001; 81003; 82436; 82570; 82805; 82948; 83036; 83690; 83735; 84100; 84132; 84133; 84300; 84550; 85025; 85027; 87077; 87086; 87186; 87493; 87641; 93005; 94002; 94003; 95819; 96361; 96374; 96375; J1644; J1650; J1815; J1953; J2060; J2270; J2405; J2930; J3480; J7030; J7040; J7512

== ENCOUNTER 2017-04-08 16:33 | Observation (INO) | payer MEDICARE, OTHER ==
[~2017-04-08] VITALS: Ht 172.7 cm; Wt 95.0 kg
[~2017-04-08 16:33] MED LIST changes: +ALLO100T PO; -ASPI-99 PO; +ASPI81TA11 PO; +ATOR40TA16 PO; -ATOR80TA41; +BACL10TA PO; -BRIM.2%O EACH EYE; +CARV3.12 PO; +CHOL4POW4 PO; -CLOP75 PO; -CORE6.25 PO; +DIAZ5 PO; +DIFI200T PO; +DONE5TAB7 PO; +DORZ2SOL EACH EYE; -DORZO2%O EACH EYE; -FIORTAB4 PO; +FURO40TA PO; +HYDR-3516 PO; +ISOS60TA PO; +LEVO75TA3 PO; -LISI-357 PO; +METR-1 PO; -MULTTAB23 PO; +NEUR300C PO; +PILO4SOL EACH EYE; +PLAV75TA29 PO; +POTA-163 PO; +PRED10 PO; -ROBA500T PO; +SERT-129 PO; -SYNT25TA PO; -TRAM50TA PO; +VANC125C3 PO; -VITA500S3 PO; -[UNRECOGNIZED DRUG - OTHER] EACH EYE
[2017-04-08] MEDS ORDERED: SODIUM CHLORIDE 0.9% FLUSH 10 ML FLUSH IVF PRN (16:45)
[2017-04-08] MEDS ORDERED: ASPIRIN 81 MG CHEW TAB PO ONE (16:45)
--- NOTE | 2017-04-08 16:48 | PD ---
HPI Chief Complaint: chest pain Time Seen by Provider: 16:46 Travel History International Travel<30 days: No Contact w/Intl Traveler<30days: No History of Present Illness HPI 81-year-old white male here by EMS from an [facility]. According to EMS his blood sugar was 114 and he had a recent diagnosis of Alzheimer's disease. He says he developed chest pain while sitting in his doctor's office that lasted 15 minutes. He says it was similar to previous episodes and describes it as a dullness and somebody sitting on his chest, no radiation of pain, rated at 8 out of 10, and nothing seemed to improve or worsen his pain. He has a history of NM, cardiac stents, and angina. Denies dizziness, blurred vision, shortness of breath, abdominal pain, joint pain. He currently does not have any chest pain and would prefer not to be here. PFSH Past Medical History Arthritis: Yes Asthma: No Autoimmune Disease: No Blood Disorders: No Cancer: Yes (PROSTATE) Cardiovascular Problems: Yes (3 STENTS) High Cholesterol: Yes Chemotherapy: No Chest Pain: No Congestive Heart Failure: Yes COPD: No Cerebrovascular Accident: Yes Diabetes: No Endocrine: No Gastrointestinal Disorders: Yes GERD: No Glaucoma: Yes Genitourinary: Yes Headaches: Yes Hepatitis: No Hiatal Hernia: No Hypertension: No Immune Disorder: No Implanted Vascular Access Dvce: No Kidney Stones: Yes Musculoskeletal: No Neurologic: Yes (SDH 07/26/10, DEMENTIA) Psychiatric: No Reproductive: No Respiratory: Yes Migraines: No Myocardial Infarction: No Radiation Therapy: No Seizures: Yes Sleep Apnea: Yes (WHERES CPAP AT HOME AT NIGHT) Thyroid Disease: No Ulcer: Yes (HX OF ESOPHAGEAL ULCERS) Past Surgical History Abdominal Surgery: No AICD: No Appendectomy: No Arteriovenous Shunt: No Cardiac Surgery: No Cholecystectomy: No Ear Surgery: No Endocrine Surgery: No Eye Surgery: Yes (RIGHT EYE CATARACT SX) Genitourinary Surgery: Yes (RADICAL PROSTATECTOMY) Gynecologic Surgery: No Insulin Pump: No Joint Replacement: No Neurologic Surgery: Yes (BRAIN SURGERY SHUNT IN 1966 R/T MENINGITITIS PER PT) Oral Surgery: Yes Pacemaker: No Prostatectomy: Yes Thoracic Surgery: No Other Surgery: Yes (CATARACT AND SHUNT SX) Social History Alcohol Use: No Tobacco Use: No Substance Use: No Allergies-Medications (Allergen,Severity, Reaction): Coded Allergies: diclofenac (Unverified Allergy, Severe, Edema, 04/08/17) povidone-iodine (Verified Allergy, Severe, 04/08/17) soap (Verified Allergy, Severe, 04/08/17) hydromorphone (Verified Allergy, Unknown, 04/08/17) Reported Meds & Prescriptions Reported Meds & Active Scripts Active Valium (Diazepam) 5 Mg Tab 5 Mg PO TID PRN Hydrocodone-Acetaminophen 5-325 mg Tab 1 Tab PO Q4H PRN Potassium Chloride ER (Potassium Chloride) 20 Meq Tab 20 Meq PO DAILY Prednisone 10 Mg Tab 10 Mg PO DAILY 3 Days Neurontin (Gabapentin) 300 Mg Cap 300 Mg PO HS Vancomycin (Vancomycin HCl) 125 Mg Cap 125 Mg PO QID 7 Days Dificid (Fidaxomicin) 200 Mg Tab 200 Mg PO BID 3 Days Atorvastatin (Atorvastatin Calcium) 40 Mg Tab 40 Mg PO HS Flagyl (Metronidazole) 500 Mg Tab 500 Mg PO TID Baclofen 10 Mg Tab 10 Mg PO TID Reported Allopurinol 100 Mg Tab 200 Mg PO DAILY Isosorbide Mononitrate ER (Isosorbide Mononitrate) 60 Mg Tab 60 Mg PO DAILY Levothyroxine (Levothyroxine Sodium) 75 Mcg Tab 75 Mcg PO DAILY Pilocarpine Opth 4% (Pilocarpine HCl) 4 % Soln 1 Drop EACH EYE BID Dorzolamide Opth Drops (Dorzolamide HCl) 2% Soln 1 Drop EACH EYE TID Omeprazole 20 Mg Tab 20 Mg PO DAILY Donepezil 5 Mg Tab 5 Mg PO HS Furosemide 40 Mg Tab 40 Mg PO BID TAKE 40 MG AM AND 20 MG PM Carvedilol 3.125 Mg Tab 3.125 Mg PO BID Plavix (Clopidogrel Bisulfate) 75 Mg Tab 75 Mg PO DAILY Aspirin EC (Aspirin) 81 Mg Tabdr 81 Mg PO DAILY Sertraline (Sertraline HCl) 100 Mg Tab 100 Mg PO DAILY Review of Systems Except as stated in HPI: all other systems reviewed are Neg Physical Exam Narrative 81-year-old white male sitting in bed comfortably GENERAL: Well-nourished, well-developed patient. SKIN: Focused skin assessment warm/dry. 1 decubitus ulcer stage I noted in the gluteal cleft without exudate or bleeding. There is surrounding erythema but no fluctuance or induration. Note that patient says this is an ongoing issue for him and is treated at home. HEAD: Normocephalic. EYES: No scleral icterus. No injection or drainage. NECK: Supple, trachea midline. No JVD or lymphadenopathy. CARDIOVASCULAR: Regular rate and rhythm without murmurs, gallops, or rubs. RESPIRATORY: Breath sounds equal bilaterally. No accessory muscle use. GASTROINTESTINAL: Abdomen soft, non-tender, nondistended. MUSCULOSKELETAL: No cyanosis, or edema. No pain upon palpation to chest wall BACK: Nontender without obvious deformity. No CVA tenderness. Data Data Last Documented VS Vital Signs Date Time Temp Pulse Resp B/P (MAP) Pulse Ox O2 Delivery O2 Flow Rate FiO2 04/08/17 16:53 97.6 70 21 109/76 (87) 97 Orders Orders Electrocardiogram (04/08/17 16:37) Basic Metabolic Panel (Bmp) (04/08/17 16:37) Ckmb (Isoenzyme) Profile (04/08/17 16:37) Complete Blood Count With Diff (04/08/17 16:37) Magnesium (Mg) (04/08/17 16:37) Prothrombin Time / Inr (Pt) (04/08/17 16:37) Act Partial Throm Time (Ptt) (04/08/17 16:37) Troponin I (04/08/17 16:37) Chest, Single Ap (04/08/17 16:37) Ecg Monitoring (04/08/17 16:37) Iv Access Insert/Monitor (04/08/17 16:37) Oximetry (04/08/17 16:37) Aspirin Chew (Aspirin Chew) (04/08/17 16:45) Sodium Chloride 0.9% Flush (Ns Flush) (04/08/17 16:45) Place In Observation (04/08/17 18:36) Activity Bed Rest With Brp (04/08/17 18:36) Vital Signs (Adult) Q4H (04/08/17 18:36) Cardiac Rhythm .As Directed (04/08/17 18:36) Notify Dr: Other .PRN (04/08/17 18:36) Notify Parameters (04/08/17 18:36) Resp Oxygen Nasal Cannula (04/08/17 ) Ckmb (Isoenzyme) Profile (04/08/17 18:36) Ckmb (Isoenzyme) Profile (04/08/17 21:36) Troponin I (04/08/17 18:36) Troponin I (04/08/17 21:36) Electrocardiogram (04/08/17 18:36) Electrocardiogram (04/08/17 21:36) ^ Obtain (04/08/17 18:36) Sodium Chloride 0.9% Flush (Ns Flush) (04/08/17 18:45) Sodium Chloride 0.9% Flush (Ns Flush) (04/08/17 21:00) Acetaminophen (Tylenol) (04/08/17 18:45) Ondansetron Inj (Zofran Inj) (04/08/17 18:45) [employer] Technical Assistant / Telemetry DIANE.Q8H (04/08/17 18:36) Admit Order (Ed Use Only) (04/08/17 18:36) Labs Laboratory Tests Test 04/08/17 17:20 White Blood Count 11.7 TH/MM3 Red Blood Count 4.29 MIL/MM3 Hemoglobin 13.0 GM/DL Hematocrit 38.9 % Mean Corpuscular Volume 90.8 FL Mean Corpuscular Hemoglobin 30.3 PG Mean Corpuscular Hemoglobin Concent 33.3 % Red Cell Distribution Width 15.1 % Platelet Count 246 TH/MM3 Mean Platelet Volume 7.4 FL Neutrophils (%) (Auto) 72.4 % Lymphocytes (%) (Auto) 14.1 % Monocytes (%) (Auto) 7.8 % Eosinophils (%) (Auto) 5.2 % Basophils (%) (Auto) 0.5 % Neutrophils # (Auto) 8.5 TH/MM3 Lymphocytes # (Auto) 1.7 TH/MM3 Monocytes # (Auto) 0.9 TH/MM3 Eosinophils # (Auto) 0.6 TH/MM3 Basophils # (Auto) 0.1 TH/MM3 CBC Comment DIFF FINAL Differential Comment Prothrombin Time 11.2 SEC Prothromb Time International Ratio 1.0 RATIO Activated Partial Thromboplast Time 26.2 SEC Blood Urea Nitrogen 21 MG/DL Creatinine 1.26 MG/DL Random Glucose 116 MG/DL Calcium Level 8.9 MG/DL Magnesium Level 1.7 MG/DL Sodium Level 139 MEQ/L Potassium Level 4.4 MEQ/L Chloride Level 108 MEQ/L Carbon Dioxide Level 25.3 MEQ/L Anion Gap 6 MEQ/L Estimat Glomerular Filtration Rate 55 ML/MIN Total Creatine Kinase 34 U/L Troponin I LESS THAN 0.02 NG/ML MDM Medical Decision Making Medical Screen Exam Complete: Yes Emergency Medical Condition: Yes Differential Diagnosis Unstable angina versus acute NM versus stable angina versus costochondritis Narrative Course 81-year-old white male here by EMS from an unknown [facility]. According to EMS his blood sugar was 114 and he had a recent diagnosis of Alzheimer's disease and has a history of NM, cardiac stents, and angina. He says he developed chest pain while sitting in his doctor's office that lasted 15 minutes. He says it was similar to previous episodes and describes it as a dullness and somebody sitting on his chest, no radiation of pain, rated at 8 out of 10, and nothing seemed to improve or worsen his pain. Denies dizziness, blurred vision, shortness of breath, abdominal pain, joint pain. He currently does not have any chest pain and would prefer not to be here. He was given aspirin upon arrival. Pt remained without chest pain or any other symptoms during his stay. Labs are stable. Imaging chest x-ray clear of acute process Will admit to [facility], pt agrees and understands plan. Diagnosis Primary Impression: Chest pain at rest Admitting Information Admitting Physician Requests: Observation Condition: Stable Keira Marin Apr 08, 2017 16:48
[2017-04-08 16:53] VITALS: BP 109/76; PULSE 70; RESP 21; TEMP 97.6; O2SAT 97
--- NOTE | 2017-04-08 16:58 | RADRPT ---
EXAM DATE/TIME: 04/08/2017 16:43 [facility] COMPARISON: No previous studies available for comparison. INDICATIONS : Chest pain. MEDICAL HISTORY : Myocardial infarction. Congestive heart failure. Hypercholesterolemia. SURGICAL HISTORY : Coronary artery stent. ENCOUNTER: Initial ACUITY: 1 day PAIN SCORE: 6/10 LOCATION: Left chest FINDINGS: A single view of the chest demonstrates the lungs to be symmetrically aerated without evidence of mas s, infiltrate or effusion. The cardiomediastinal contours are unremarkable. Osseous structures are intact. CONCLUSION: No acute disease. Emery Hector MD FACR on April 08, 2017 at 16:56 Board Certified Radiologist. This report was verified electronically.
--- NOTE | 2017-04-08 17:05 | PD ---
Physical Exam Date Seen by Provider: Apr 08, 2017 Narrative Patient was sent to us by his doctor for chest pain evaluation. He is not currently having pain. Data Data Last Documented VS Vital Signs Date Time Temp Pulse Resp B/P (MAP) Pulse Ox O2 Delivery O2 Flow Rate FiO2 04/08/17 16:53 97.6 70 21 109/76 (87) 97 Orders Orders Electrocardiogram (04/08/17 16:37) Basic Metabolic Panel (Bmp) (04/08/17 16:37) Ckmb (Isoenzyme) Profile (04/08/17 16:37) Complete Blood Count With Diff (04/08/17 16:37) Magnesium (Mg) (04/08/17 16:37) Prothrombin Time / Inr (Pt) (04/08/17 16:37) Act Partial Throm Time (Ptt) (04/08/17 16:37) Troponin I (04/08/17 16:37) Chest, Single Ap (04/08/17 16:37) Ecg Monitoring (04/08/17 16:37) Iv Access Insert/Monitor (04/08/17 16:37) Oximetry (04/08/17 16:37) Aspirin Chew (Aspirin Chew) (04/08/17 16:45) Sodium Chloride 0.9% Flush (Ns Flush) (04/08/17 16:45) MDM Supervised Visit with COLEMAN: Yes Differential Diagnosis Differential diagnosis of chest pain includes but is not limited to musculoskeletal pain, pulmonary embolism, acute coronary syndrome, pneumonia, pleurisy Narrative Course I, Dr. Chowdary, have reviewed the advance practice practitioner's documentation and am in agreement, met with the patient face to face, made the diagnosis, and the medical decision making was done by me. *My assessment and Findings: Patient is awake and alert and does not appear to be in any acute distress. His EKG has no acute ischemic change. Please see Keira Marin's note for final diagnosis and disposition. Sol Chowdary MD Apr 08, 2017 17:05
[2017-04-08 17:36] LABS: AUTOMATED NEUTROPHIL # 8.5 TH/MM3 (1.8-7.7); BASOPHIL # 0.1 TH/MM3 (0-0.2); BASOPHIL % 0.5 % (0.0-2.0); EOSINOPHIL # 0.6 TH/MM3 (0-0.4); EOSINOPHIL % 5.2 % (0.0-4.0); HEMATOCRIT 38.9 % (39.0-51.0); HEMO FLAGS DIFF FINAL; LYMPH % 14.1 % (9.0-44.0); LYMPHOCYTE # 1.7 TH/MM3 (1.0-4.8); MEAN CELL VOLUME 90.8 FL (80.0-100.0); MEAN CORPUSCULAR HEMOGLOBIN 30.3 PG (27.0-34.0); MEAN CORPUSCULAR HGB CONC 33.3 % (32.0-36.0); MONO % 7.8 % (0.0-8.0); NEUT % 72.4 % (16.0-70.0); PLATELET COUNT 246 TH/MM3 (150-450); RED BLOOD COUNT 4.29 MIL/MM3 (4.50-5.90); RED CELL DISTRIBUTION WIDTH 15.1 % (11.6-17.2); WHITE BLOOD COUNT 11.7 TH/MM3 (4.0-11.0)
[2017-04-08 17:39] LABS: APTT (PATIENT) 26.2 SEC (24.3-30.1); PROTHROMBIN TIME - PATIENT 11.2 SEC (9.8-11.6)
[2017-04-08 17:56] LABS: ANION GAP 6 MEQ/L (5-15); BICARBONATE 25.3 MEQ/L (21.0-32.0); BLOOD UREA NITROGEN 21 MG/DL (7-18); CHLORIDE 108 MEQ/L (98-107); GLOMERULAR FILTRATION RATE 55 ML/MIN (>89); MAGNESIUM 1.7 MG/DL (1.5-2.5); POTASSIUM 4.4 MEQ/L (3.5-5.1); SODIUM (NA) 139 MEQ/L (136-145)
[2017-04-08 17:59] LABS: CREATINE KINASE 34 U/L (39-308)
[2017-04-08] MEDS ORDERED: SODIUM CHLORIDE 0.9% FLUSH 10 ML FLUSH IV FLUSH PRN (18:45)
[2017-04-08] MEDS ORDERED: ACETAMINOPHEN 500 MG CPLT PO PRN (18:45)
[2017-04-08] MEDS ORDERED: ONDANSETRON HCL 4 MG/2 ML VIAL IV PUSH PRN (18:45)
[2017-04-08] MEDS ORDERED: MILKSUS PO (19:40)
[2017-04-08] MEDS ORDERED: NAPR250T PO (19:40)
[2017-04-08] MEDS ORDERED: ZINC220T PO (19:40)
[2017-04-08] MEDS ORDERED: LEVO100T5 PO (19:40)
[2017-04-08] MEDS ORDERED: VITA250T3 PO (19:40)
[2017-04-08] MEDS ORDERED: MULT-65 PO (19:40)
[2017-04-08 19:53] VITALS: O2SAT 98
[2017-04-08 20:02] VITALS: BP 140/68; PULSE 66; RESP 19; TEMP 97.5; O2SAT 97
[2017-04-08 20:27] VITALS: PULSE 66
[2017-04-08] MEDS: SODIUM CHLORIDE 0.9% FLUSH 10 ML FLUSH IV FLUSH SCH (21:00)
[2017-04-08 21:26] LABS: CREATINE KINASE 34 U/L (39-308)
[2017-04-08 23:39] VITALS: BP 107/78; PULSE 60; RESP 18; TEMP 97.2; O2SAT 100
[2017-04-09] VITALS (8 sets, daily range): BP systolic 97–129; BP diastolic 54–63; PULSE 59–112; RESP 16–20; TEMP 97.7–97.8; O2SAT 95–100
[2017-04-09 00:24] LABS: CREATINE KINASE 31 U/L (39-308)
[2017-04-09] MEDS ORDERED: ACETAMINOPHEN 500 MG CPLT PO PRN (07:30)
[2017-04-09] MEDS ORDERED: ONDANSETRON HCL 4 MG/2 ML VIAL IV PUSH PRN (07:30)
[2017-04-09] MEDS ORDERED: SODIUM CHLORIDE 0.9% FLUSH 10 ML FLUSH IV FLUSH PRN (07:30)
--- NOTE | 2017-04-09 07:39 | EKG ---
Date Performed: 04/08/2017 Time Performed: 20:18:57 PTAGE: 81 years EKG: SINUS BRADYCARDIA WITH FIRST DEGREE AV BLOCK SEPTAL MYOCARDIAL INFARCTION ABNORMAL ECG Sinc e PREVIOUS TRACING , no significant change noted PREVIOUS TRACIN04/08/2017 16.45 DOCTOR: Elisabeth Giordano Interpretating Date/Time 04/09/2017 07:37:37
--- NOTE | 2017-04-09 07:54 | EKG ---
Date Performed: 04/08/2017 Time Performed: 16:45:46 PTAGE: 81 years EKG: Sinus rhythm WITH FIRST DEGREE AV BLOCK WITH OCCASIONAL SUPRAVENTRICULAR PREMATURE COMPLEXES MARKED LEFT AXIS DEV IATION MINIMAL VOLTAGE CRITERIA FOR LVH, CONSIDER NORMAL VARIANT SEPTAL MYOCARDIAL INFARCTION, AGE IN DETERMINANT Since PREVIOUS TRACING , no significant change noted PREVIOUS TRACIN03/09/2017 17.15 DOCTOR: Elisabeth Giordano Interpretating Date/Time 04/09/2017 07:52:25
[2017-04-09] MEDS ORDERED: NITROGLYCERIN 0.4 MG SL 25 TABS/BTL SL PRN (08:05)
--- NOTE | 2017-04-09 08:11 | HHI.HP ---
HPI Primary Care Physician Unknown Chief Complaint Full body shaking History of Present Illness 82-year-old male with history of CVA, hypertension, and coronary artery disease presents to emergency room for further evaluation of full body shaking. States he is staying at a friend's house when he developed "full body shaking" and his friends became frightened and called EMS. Endorses past "full body shaking" and follows with neurologist. Denies any chest pain, pressure, discomfort, or palpitations. Patient is a poor historian and reports history of Alzheimer's. History obtained from past medical records. Patient believes he recently moved here from [place] 3 weeks ago, although records state he came from [facility]. Review of Systems General: No fatigue,weakness, fever, or chills. Reports recent c.diff infection , completed all antibiotics and reports stool no longer is loose. This is verified after reviewing past discharge summary on 03/26/17 antibiotics would have been completed x1 week ago. HEENT: No dysphasia CV: No CP, pressure, discomfort, palpitations. History of coronary artery disease, states he has 3 stent. RESP: No SOB, cough, or sputum production. GI: No nausea, vomiting, bowel changes, diarrhea improved, stating his stool is now formed. : No dysuria, history of kidney stones EXT: No lower leg edema MS: History of chronic back pain, No current discomfort NEURO: History of Alzheimer's, states "my memory is not so good." History of "body shakes," no history of seizures. Reports episode of full body shakes yesterday. Seen and evaluated by Dr. Woods last month, diagnoses with encephalopathy, EEG negative, Keppra discontinues, instructed to follow up as an outpatient, and continue Aricept. Past Family Social History Allergies: Coded Allergies: diclofenac (Unverified Allergy, Severe, Edema, 04/08/17) povidone-iodine (Verified Allergy, Severe, 04/08/17) soap (Verified Allergy, Severe, 04/08/17) hydromorphone (Verified Allergy, Unknown, 04/08/17) Past Medical History CVA, hypertension, C. difficile, prostate cancer, renal stones, sleep apnea, spinal stenosis, coronary artery disease with stents, hypothyroidism, subdural hematoma (2010), systolic heart failure, sigmoid diverticulitis Past Surgical History Cataract surgery, radical prostatectomy, brain surgery (1966) Reported Medications Reported Meds & Active Scripts Active Valium (Diazepam) 5 Mg Tab 5 Mg PO TID PRN Hydrocodone-Acetaminophen 5-325 mg Tab 1 Tab PO Q4H PRN Potassium Chloride ER (Potassium Chloride) 20 Meq Tab 20 Meq PO DAILY Prednisone 10 Mg Tab 10 Mg PO DAILY 3 Days Neurontin (Gabapentin) 300 Mg Cap 300 Mg PO HS Atorvastatin (Atorvastatin Calcium) 40 Mg Tab 40 Mg PO HS Baclofen 10 Mg Tab 10 Mg PO Zinc Sulfate 220 Mg Tab 220 Mg PO DAILY Vitamin C (Ascorbic Acid) 250 Mg Tab 500 Mg PO BID Levothyroxine (Levothyroxine Sodium) 100 Mcg Tab 100 Mcg PO DAILY Naproxen 250 Mg Tab 250 Mg PO BID Multi-Vitamin Daily (Multiple Vitamin) 1 Tab Tab 1 Tab PO DAILY Milk of Magnesia Liq (Magnesium Hydroxide) 400 Mg/5 Ml Susp 30 Ml PO Q6H PRN Allopurinol 100 Mg Tab 200 Mg PO DAILY Isosorbide Mononitrate ER (Isosorbide Mononitrate) 60 Mg Tab 60 Mg PO DAILY Pilocarpine Opth 4% (Pilocarpine HCl) 4 % Soln 1 Drop EACH EYE BID Dorzolamide Opth Drops (Dorzolamide HCl) 2% Soln 1 Drop EACH EYE TID Omeprazole 20 Mg Tab 20 Mg PO DAILY Donepezil 5 Mg Tab 5 Mg PO HS Furosemide 40 Mg Tab 40 Mg PO BID TAKE 40 MG AM AND 20 MG PM Carvedilol 3.125 Mg Tab 3.125 Mg PO BID Plavix (Clopidogrel Bisulfate) 75 Mg Tab 75 Mg PO DAILY Aspirin EC (Aspirin) 81 Mg Tabdr 81 Mg PO DAILY Sertraline (Sertraline HCl) 100 Mg Tab 100 Mg PO DAILY Active Ordered Medications Current Medications Medications (Trade) Dose Ordered Sig/Severino Route Start Time Stop Time Status Last Admin (NS Flush) 2 ml UNSCH PRN IVF 04/08/17 16:45 (NS Flush) 2 ml UNSCH PRN IV FLUSH 04/08/17 18:45 (NS Flush) 2 ml BID IV FLUSH 04/08/17 21:00 04/08/17 21:00 (Tylenol) 500 mg Q4H PRN PO 04/08/17 18:45 (Zofran Inj) 4 mg Q6H PRN IV PUSH 04/08/17 18:45 (NS Flush) 2 ml UNSCH PRN IV FLUSH 04/09/17 07:30 UNV (NS Flush) 2 ml BID IV FLUSH 04/09/17 09:00 UNV (Tylenol) 500 mg Q4H PRN PO 04/09/17 07:30 UNV (Zofran Inj) 4 mg Q6H PRN IV PUSH 04/09/17 07:30 UNV (Nitrostat Sl) 0.4 mg Q5M PRN SL 04/09/17 08:05 (Aspirin) 325 mg DAILY PO 04/09/17 09:00 UNV Social History Past cardiac testing 01/02/2013 Cardiac catheterization (Dr. Strickland)- 1. Acute anterior wall myocardial infarction. 2. Moderate left ventricular dysfunction consistent with ischemic cardiomyopathy. 3. Successful from thrombectomy and stenting of the proximal left anterior descending artery using a bare-metal stent. 01/03/2013 Echocardiogram- systolic function mild to moderately reduced. Diffuse hypokinesis. EF 40-45%. Physical Exam Vital Signs Vital Signs Date Time Temp Pulse Resp B/P (MAP) Pulse Ox O2 Delivery O2 Flow Rate FiO2 04/09/17 07:56 97.7 63 20 123/56 (78) 99 04/09/17 07:26 97.8 112 16 110/63 (79) 95 04/09/17 07:20 66 04/09/17 07:19 62 04/09/17 04:00 97.7 60 18 97/54 (68) 100 04/09/17 00:24 59 04/08/17 23:39 97.2 60 18 107/78 (88) 100 04/08/17 20:27 66 04/08/17 20:02 97.5 66 19 140/68 (92) 97 04/08/17 19:53 98 21 04/08/17 16:53 97.6 70 21 109/76 (87) 97 Physical Exam GENERAL: Alert WN, WD, NAD, pleasant HEAD: NC, AT CV: RRR, without murmur, rub, gallop, no JVD, S1-S2 no S3-S4. RESP: Clear lungs throughout bilateral, no crackles, wheeze, rhonchi, symmetrical chest rise, nonlabored, able to speak in full sentences ABD: Soft, NT, ND, no masses, positive bowel tones EXT: Pulses +14, no dependent edema MS: Normal tone 4 extremities, nontender, no obvious deformities, full range of motion NEURO: CN II through CN XII grossly intact, motor strength 5/5, gait WNL PSYCH: A+O to person, place, and situation. Poor historian, pleasant affect, appropriate speech, appropriate mood and affect, insight and judgment SKIN: Normal turgor, normal texture, no lesions, no rashes, brisk cap refill Laboratory Laboratory Tests Test 04/08/17 17:20 04/08/17 20:20 04/08/17 23:37 White Blood Count 11.7 Red Blood Count 4.29 Hemoglobin 13.0 Hematocrit 38.9 Mean Corpuscular Volume 90.8 Mean Corpuscular Hemoglobin 30.3 Mean Corpuscular Hemoglobin Concent 33.3 Red Cell Distribution Width 15.1 Platelet Count 246 Mean Platelet Volume 7.4 Neutrophils (%) (Auto) 72.4 Lymphocytes (%) (Auto) 14.1 Monocytes (%) (Auto) 7.8 Eosinophils (%) (Auto) 5.2 Basophils (%) (Auto) 0.5 Neutrophils # (Auto) 8.5 Lymphocytes # (Auto) 1.7 Monocytes # (Auto) 0.9 Eosinophils # (Auto) 0.6 Basophils # (Auto) 0.1 CBC Comment DIFF FINAL Differential Comment Prothrombin Time 11.2 Prothromb Time International Ratio 1.0 Activated Partial Thromboplast Time 26.2 Blood Urea Nitrogen 21 Creatinine 1.26 Random Glucose 116 Calcium Level 8.9 Magnesium Level 1.7 Sodium Level 139 Potassium Level 4.4 Chloride Level 108 Carbon Dioxide Level 25.3 Anion Gap 6 Estimat Glomerular Filtration Rate 55 Total Creatine Kinase 34 34 31 Troponin I LESS THAN 0.02 LESS THAN 0.02 LESS THAN 0.02 Result Diagram: 04/08/17 1720 04/08/17 1720 Imaging Last Impressions Chest X-Ray 04/08/17 1637 Signed Impressions: Service Date/Time: Saturday, April 08, 2017 16:43 - CONCLUSION: No acute disease. Emery Hector MD FACR Course EKG First-degree AV block, normal sinus bradycardia, septal Q waves, compared to previous EKG unchanged Caprini VTE Risk Assessment Caprini VTE Risk Assessment: Mod/High Risk (score >= 2) Caprini Risk Assessment Model Point Value = 1 Point Value = 2 Point Value = 3 Point Value = 5 Age 41-60 Minor surgery BMI > 25 kg/m2 Swollen legs Varicose veins or History of unexplained or recurrent spontaneous Oral contraceptives or hormone replacement Sepsis (< 1 month) Serious lung disease, including pneumonia (< 1 month) Abnormal pulmonary function Acute myocardial infarction Congestive heart failure (< 1 month) History of inflammatory bowel disease Medical patient at bed rest Age 61-74 Arthroscopic surgery Major open surgery (> 45 min) Laparoscopic surgery (> 45 min) Malignancy Confined to bed (> 72 hours) Immobilizing plaster cast Central venous access Age >= 75 History of VTE Family history of VTE Factor V Leiden Prothrombin [id number] Lupus anticoagulant Anticardiolipin antibodies Elevated serum homocysteine Heparin-induced thrombocytopenia Other congenital or acquired thrombophilia Stroke (< 1 month) Elective arthroplasty Hip, pelvis, or leg fracture Acute spinal cord injury (< 1 month) Prophylaxis Regimen Total Risk Factor Score Risk Level Prophylaxis Regimen 0-1 Low Early ambulation 2 Moderate Order ONE of the following: *Sequential Compression Device (SCD) *Heparin 5000 units SQ BID 3-4 Higher Order ONE of the following medications: *Heparin 5000 units SQ TID *Enoxaparin/Lovenox 40 mg SQ daily (WT < 150 kg, CrCl > 30 mL/min) *Enoxaparin/Lovenox 30 mg SQ daily (WT < 150 kg, CrCl > 10-29 mL/min) *Enoxaparin/Lovenox 30 mg SQ BID (WT < 150 kg, CrCl > 30 mL/min) AND/OR *Sequential Compression Device (SCD) 5 or more Highest Order ONE of the following medications: *Heparin 5000 units SQ TID (Preferred with Epidurals) *Enoxaparin/Lovenox 40 mg SQ daily (WT < 150 kg, CrCl > 30 mL/min) *Enoxaparin/Lovenox 30 mg SQ daily (WT < 150 kg, CrCl > 10-29 mL/min) *Enoxaparin/Lovenox 30 mg SQ BID (WT < 150 kg, CrCl > 30 mL/min) AND *Sequential Compression Device (SCD) Assessment and Plan Assessment and Plan #1 Essential tremor-Admitted to chest pain center. Ruled out with 3 sets of EKGs, cardiac enzymes, and monitored overnight. Seen and evaluated by Dr. Saji Sharma. Past medical records reviewed. No further cardiac testing at this time. Patient continues to deny any chest pain or pressure. No acute findings at this time. Consult case management for placement to [facility] and /or back to residential facility. There is no next of kin or person to notify in her charting system, if nursing or case management identifies a family member or person to notify will update them on plan of care. #2 History of coronary artery disease-continue Plavix, carvedilol, aspirin 81 mg , atorvastatin, and Imdur. No further cardiac testing at this time. #3 History of C. difficile-no symptoms of loose stool, keep on isolation, antibiotics completed last week, follow-up with PCP #4 Dementia-continue Aricept #5 Hypothyroidism-continue levothyroxine #6 Systolic heart failure-continue Lasix and potassium supplementation Keisha Bang Apr 09, 2017 08:11
[2017-04-09] MEDS ORDERED: SODIUM CHLORIDE 0.9% FLUSH 10 ML FLUSH IV FLUSH SCH (09:00)
[2017-04-09] MEDS ORDERED: ASPIRIN 325 MG TAB PO SCH (09:00)
[2017-04-09] MEDS ORDERED: MAGNESIUM HYDROXIDE SUSP 30 ML CUP PO PRN (09:30)
[2017-04-09] MEDS ORDERED: CARVEDILOL 3.125 MG TAB PO SCH (10:15)
[2017-04-09] MEDS ORDERED: FUROSEMIDE 40 MG TAB PO SCH (10:15)
[2017-04-09] MEDS ORDERED: CLOPIDOGREL 75 MG TAB PO SCH (10:15)
[2017-04-09] MEDS ORDERED: ISOSORBIDE MONONITRATE 60 MG TAB PO SCH (10:15)
[2017-04-09] MEDS ORDERED: ALLOPURINOL 100 MG TAB PO SCH (10:15)
[2017-04-09] MEDS ORDERED: LEVOTHYROXINE SODIUM 100 MCG TAB PO SCH (10:15)
[2017-04-09] MEDS ORDERED: PANTOPRAZOLE SOD 20 MG DELAYED RELEASE TAB PO SCH (10:30)
[2017-04-09] MEDS ORDERED: POTASSIUM CHLORIDE 20 MEQ CONTROLLED RELEASE TAB PO SCH (10:30)
[2017-04-09] MEDS ORDERED: MULTIVITAMIN TAB PO SCH (10:30)
[2017-04-09] MEDS ORDERED: ASCORBIC ACID 500 MG TAB PO SCH (10:30)
[2017-04-09] MEDS ORDERED: SERTRALINE HCL 100 MG TAB PO SCH (10:30)
[2017-04-09] MEDS ORDERED: PILOCARPINE HCL 4% EACH EYE SCH (11:00)
[2017-04-09] MEDS: SODIUM CHLORIDE 0.9% FLUSH 10 ML FLUSH IV FLUSH SCH (11:07)
[2017-04-09] MEDS ORDERED: DORZOLAMIDE 2% OPTH SOLN 200 DROP/10 ML BTLO EACH EYE SCH (13:00)
--- NOTE | 2017-04-09 13:37 | HHI.DCPOC ---
Discharge Care Plan Diagnosis: (1) Hx of coronary artery disease (2) Episode of shaking (3) Dementia Goals to Promote Your Health * To prevent worsening of your condition and complications * To maintain your health at the optimal level Directions to Meet Your Goals Take your medications as prescribed Follow your dietary instruction Follow activity as directed Keep your appointments as scheduled Take your immunizations and boosters as scheduled If your symptoms worsen call your PCP, if no PCP go to Urgent Care Center or Emergency Room Smoking is Dangerous to Your Health. Avoid second hand smoke Call the 24-hour hour crisis hotline for domestic abuse at Keisha Bang Apr 09, 2017 13:37
--- NOTE | 2017-04-09 15:01 | EKG ---
Date Performed: 04/09/2017 Time Performed: 00:03:53 PTAGE: 82 years EKG: Sinus rhythm WITH FIRST DEGREE AV BLOCK POSSIBLE ANTEROSEPTAL MYOCARDIAL INFARCTION ABNORMAL ECG PREVIOUS TRACING : 04/08/2017 20.18 DOCTOR: Saji Sharma Interpretating Date/Time 04/09/2017 15:00:51
[2017-04-09] MEDS ORDERED: DONEPEZIL HCL 5 MG TAB PO SCH (21:00)
[2017-04-09] MEDS ORDERED: GABAPENTIN 300 MG CAP PO SCH (21:00)
[2017-04-09] MEDS ORDERED: ATORVASTATIN 40 MG TAB PO SCH (21:00)
[2017-04-10] MEDS ORDERED: ASPIRIN EC 81 MG TABEC PO SCH (09:00)
== END 2017-04-09 18:21 | disposition home or self-care (01) ==
LOC: NEPC 16:33 → NEDA 18:41 → NEPFCDU 19:55
PROVIDERS: ADMIT Internal Medicine Cardiovascular Disease; ATTEND Internal Medicine Cardiovascular Disease
DX: I25.10 Atherosclerotic heart disease of native coronary artery without angina pectoris (principal); G30.9 Alzheimer's disease, unspecified; F02.80 Dementia in other diseases classified elsewhere, unspecified severity, without behavioral disturbance, psychotic disturbance, mood disturbance, and anxiety; I50.22 Chronic systolic (congestive) heart failure; M19.90 Unspecified osteoarthritis, unspecified site; E78.00 Pure hypercholesterolemia, unspecified; R94.31 Abnormal electrocardiogram [ECG] [EKG]; Z86.73 Personal history of transient ischemic attack (TIA), and cerebral infarction without residual deficits
CPT/HCPCS: 71010; 80048; 82550; 83735; 84484; 85025; 85610; 85730; 93005; 99285; G0378

== ENCOUNTER 2017-07-06 02:09 | Emergency (ER) | payer OTHER ==
[~2017-07-06 02:09] MED LIST changes: -ASPI81TA11 PO; +ASPI81TA23 PO; -CHOL4POW4 PO; -DIFI200T PO; +LEVO100T5 PO; -LEVO75TA3 PO; -METR-1 PO; +MILKSUS PO; +MULT-65 PO; +NAPR250T4 PO; -OMEP20TA PO; +OMEP20TA93 PO; -PRED10 PO; -VANC125C3 PO; +VITA250T3 PO; +ZINC220T PO
[2017-07-06 02:13] VITALS: BP 147/90; PULSE 61; RESP 18; TEMP 97.6; O2SAT 98
--- NOTE | 2017-07-06 02:40 | PD ---
HPI Chief Complaint: Back/ Neck Pain or Injury Time Seen by Provider: 02:25 Travel History International Travel<30 days: No Contact w/Intl Traveler<30days: No Traveled to known affect area: No History of Present Illness HPI 82-year-old male with history of early Alzheimer's, chronic renal insufficiency , hypertension, urinary incontinence, presents via EMS for evaluation of lower abdominal/right buttocks pain. He reports that he has had pain in his lower back for several months. In fact he was seen here in January 08 for evaluation of lower back pain. 4 The past 2 days he has developed new pain in his right buttocks. He describes it as a pulling/tightness type of pain which is constant and radiates across his lower abdomen. The pain is worse with movement. He denies dysuria, testicular or scrotal pain, nausea or vomiting, fevers or chills. Tonight he was attempting to ambulate off the commode when the pain became so severe that EMS had to be called. He currently takes tramadol for lower back pain. He has no other complaints at this time. PFSH Past Medical History Arthritis: Yes Asthma: No Autoimmune Disease: No Blood Disorders: No Cancer: Yes (PROSTATE) Cardiovascular Problems: Yes (ANGINA) High Cholesterol: Yes Chemotherapy: No Chest Pain: No Congestive Heart Failure: Yes COPD: No Cerebrovascular Accident: Yes Diabetes: No Endocrine: No Gastrointestinal Disorders: Yes (DUODENAL ULCER) GERD: No Glaucoma: Yes Genitourinary: Yes Headaches: Yes Hepatitis: No Hiatal Hernia: No Hypertension: No Immune Disorder: No Implanted Vascular Access Dvce: No Kidney Stones: Yes Musculoskeletal: No Neurologic: Yes (SDH 07/26/10, DEMENTIA) Psychiatric: No Reproductive: No Respiratory: Yes Migraines: No Myocardial Infarction: No Radiation Therapy: No Seizures: Yes Sleep Apnea: Yes (WHERES CPAP AT HOME AT NIGHT) Thyroid Disease: No Ulcer: Yes (HX OF ESOPHAGEAL ULCERS) Past Surgical History Abdominal Surgery: No AICD: No Appendectomy: No Arteriovenous Shunt: No Cardiac Surgery: No Cholecystectomy: No Ear Surgery: No Endocrine Surgery: No Eye Surgery: Yes (BILATERAL CATARACT SURGERY) Genitourinary Surgery: Yes (RADICAL PROSTATECTOMY) Gynecologic Surgery: No Insulin Pump: No Joint Replacement: No Neurologic Surgery: Yes (BRAIN SURGERY SHUNT IN 1966 R/T MENINGITITIS PER PT) Oral Surgery: Yes Pacemaker: No Prostatectomy: Yes Thoracic Surgery: No Other Surgery: Yes (CATARACT AND SHUNT SX / 2008 SUBDURAL HEMATOMA) Social History Alcohol Use: No Tobacco Use: No Substance Use: No Allergies-Medications (Allergen,Severity, Reaction): Coded Allergies: diclofenac (Unverified Allergy, Severe, Edema, 07/06/17) povidone-iodine (Verified Allergy, Severe, 07/06/17) soap (Verified Allergy, Severe, 07/06/17) hydromorphone (Verified Allergy, Unknown, 07/06/17) Reported Meds & Prescriptions Reported Meds & Active Scripts Active Lidocaine Patch 12 HR (Lidocaine) 5 % Patch 1 Patch TOPICAL DAILY PRN Remove patch after 12 hours Baclofen 10 Mg Tab 10 Mg PO TID 7 Days Valium (Diazepam) 5 Mg Tab 5 Mg PO TID PRN Hydrocodone-Acetaminophen 5-325 mg Tab 1 Tab PO Q4H PRN Potassium Chloride ER (Potassium Chloride) 20 Meq Tab 20 Meq PO DAILY Neurontin (Gabapentin) 300 Mg Cap 300 Mg PO HS Atorvastatin (Atorvastatin Calcium) 40 Mg Tab 40 Mg PO HS Baclofen 10 Mg Tab 10 Mg PO TID Reported Zinc Sulfate 220 Mg Tab 220 Mg PO DAILY Vitamin C (Ascorbic Acid) 250 Mg Tab 500 Mg PO BID Levothyroxine (Levothyroxine Sodium) 100 Mcg Tab 100 Mcg PO DAILY Naproxen 250 Mg Tab 250 Mg PO BID Multi-Vitamin Daily (Multiple Vitamin) 1 Tab Tab 1 Tab PO DAILY Milk of Magnesia Liq (Magnesium Hydroxide) 400 Mg/5 Ml Susp 30 Ml PO Q6H PRN Allopurinol 100 Mg Tab 200 Mg PO DAILY Isosorbide Mononitrate ER (Isosorbide Mononitrate) 60 Mg Tab 60 Mg PO DAILY Pilocarpine Opth 4% (Pilocarpine HCl) 4 % Soln 1 Drop EACH EYE BID Dorzolamide Opth Drops (Dorzolamide HCl) 2% Soln 1 Drop EACH EYE TID Omeprazole 20 Mg Tab 20 Mg PO DAILY Donepezil 5 Mg Tab 5 Mg PO HS Furosemide 40 Mg Tab 40 Mg PO BID TAKE 40 MG AM AND 20 MG PM Carvedilol 3.125 Mg Tab 3.125 Mg PO BID Plavix (Clopidogrel Bisulfate) 75 Mg Tab 75 Mg PO DAILY Aspirin EC (Aspirin) 81 Mg Tabdr 81 Mg PO DAILY Sertraline (Sertraline HCl) 100 Mg Tab 100 Mg PO DAILY Review of Systems Except as stated in HPI: all other systems reviewed are Neg Physical Exam Narrative GENERAL: Well-developed well-nourished male in no acute distress SKIN: Warm and dry. No rash HEAD: Atraumatic. Normocephalic. EYES: Pupils equal and round. No scleral icterus. No injection or drainage. ENT: No nasal bleeding or discharge. Mucous membranes pink and moist. NECK: Trachea midline. No JVD. CARDIOVASCULAR: Regular rate and rhythm. No murmur appreciated. RESPIRATORY: No accessory muscle use. Clear to auscultation. Breath sounds equal bilaterally. GASTROINTESTINAL: Abdomen soft, focal right lower quadrant tenderness without guarding. MUSCULOSKELETAL: No obvious deformities. Focal tenderness to palpation of the right sacroiliac joint. No tenderness to palpation along the thoracic or lumbar midline, no CVA tenderness, no tenderness to palpation to the pelvic crest or hips, no tenderness to palpation of the buttocks. The patient has pain with range of motion activities utilizing the right hip. NEUROLOGICAL: Awake and alert. No obvious cranial nerve deficits. Motor grossly within normal limits. Normal speech. Data Data Last Documented VS Vital Signs Date Time Temp Pulse Resp B/P (MAP) Pulse Ox O2 Delivery O2 Flow Rate FiO2 07/06/17 02:13 97.6 61 18 147/90 (109) 98 Orders Orders Complete Blood Count With Diff (07/06/17 02:34) Comprehensive Metabolic Panel (07/06/17 02:34) Ct Abd/Pel W/O Iv Contrast (07/06/17 02:34) Iv Access Insert/Monitor (07/06/17 02:34) Orphenadrine Inj (Norflex Inj) (07/06/17 02:45) Lidocaine 5% Patch.12 Hr (Lidoderm 5% Pa (07/06/17 02:45) Ed Discharge Order (07/06/17 04:41) Labs Laboratory Tests Test 07/06/17 02:54 White Blood Count 7.1 TH/MM3 Red Blood Count 4.23 MIL/MM3 Hemoglobin 12.4 GM/DL Hematocrit 37.0 % Mean Corpuscular Volume 87.5 FL Mean Corpuscular Hemoglobin 29.4 PG Mean Corpuscular Hemoglobin Concent 33.6 % Red Cell Distribution Width 15.3 % Platelet Count 188 TH/MM3 Mean Platelet Volume 7.3 FL Neutrophils (%) (Auto) 60.7 % Lymphocytes (%) (Auto) 24.3 % Monocytes (%) (Auto) 9.5 % Eosinophils (%) (Auto) 5.0 % Basophils (%) (Auto) 0.5 % Neutrophils # (Auto) 4.3 TH/MM3 Lymphocytes # (Auto) 1.7 TH/MM3 Monocytes # (Auto) 0.7 TH/MM3 Eosinophils # (Auto) 0.4 TH/MM3 Basophils # (Auto) 0.0 TH/MM3 CBC Comment DIFF FINAL Differential Comment Blood Urea Nitrogen 28 MG/DL Creatinine 1.40 MG/DL Random Glucose 120 MG/DL Total Protein 7.4 GM/DL Albumin 3.4 GM/DL Calcium Level 9.0 MG/DL Alkaline Phosphatase 91 U/L Aspartate Amino Transf (AST/SGOT) 15 U/L Alanine Aminotransferase (ALT/SGPT) 22 U/L Total Bilirubin 0.3 MG/DL Sodium Level 143 MEQ/L Potassium Level 3.9 MEQ/L Chloride Level 107 MEQ/L Carbon Dioxide Level 30.2 MEQ/L Anion Gap 6 MEQ/L Estimat Glomerular Filtration Rate 48 ML/MIN [facility] Medical Decision Making Medical Screen Exam Complete: Yes Emergency Medical Condition: Yes Medical Record Reviewed: Yes Differential Diagnosis Muscle spasm, piriformis syndrome, degenerative disc disease, colitis, appendicitis, ureteral stone, AAA, compression fracture Narrative Course 82-year-old male who has been suffering from lower back pain for several months presents with 2 days of right buttocks pain that is now radiating into the lower abdomen. The pain seems to be worse with movement. On examination he has focal tenderness to palpation to the right lower quadrant and right sacroiliac region. The pain is also reproduced with range of motion activities at the right hip. CT of the abdomen and pelvis was performed revealing: Stable gallstone, hepatic cyst and chronic changes as above. CBC reveals a hemoglobin of 12.4 otherwise unremarkable. CMP reveals a GFR 48 which is consistent with his baseline. The patient was initially given Norflex and a Lidoderm patch which seemed to help significantly with his symptoms. Therefore the patient will be discharged with prescriptions for Lidoderm patches as well as a short course of baclofen. Diagnosis Primary Impression: Right buttock pain Additional Instructions: Medication as needed. Do not drive or drink alcohol or operate heavy machinery when taking baclofen as it May cause sedation. Follow up closely with primary care physician. Return for any emergent medical conditions. Med/Other Pt SpecificInfo: Prescription(s) given Scripts Lidocaine Patch 12 HR (Lidocaine Patch 12 HR) 5 % Patch 1 PATCH TOPICAL DAILY Y for PAIN, #1 BOX 1 Refill Remove patch after 12 hours Prov: Gumaro Fisher MD 07/06/17 Baclofen (Baclofen) 10 Mg Tab 10 MG PO TID for Muscle Spasm for 7 Days, TAB 0 Refills Prov: Gumaro Fisher MD 07/06/17 Disposition: 01 DISCHARGE HOME Condition: Stable Fito Merida Jul 06, 2017 02:39
[2017-07-06] MEDS ORDERED: LIDOCAINE HCL 5% PATCH T-DERMAL ONE (02:45)
[2017-07-06] MEDS ORDERED: ORPHENADRINE INJ 60 MG/2 ML AMP IV ONE (02:45)
[2017-07-06 03:24] LABS: AUTOMATED NEUTROPHIL # 4.3 TH/MM3 (1.8-7.7); BASOPHIL % 0.5 % (0.0-2.0); EOSINOPHIL # 0.4 TH/MM3 (0-0.4); HEMOGLOBIN 12.4 GM/DL (13.0-17.0); LYMPH % 24.3 % (9.0-44.0); LYMPHOCYTE # 1.7 TH/MM3 (1.0-4.8); MEAN CELL VOLUME 87.5 FL (80.0-100.0); MEAN CORPUSCULAR HEMOGLOBIN 29.4 PG (27.0-34.0); MEAN CORPUSCULAR HGB CONC 33.6 % (32.0-36.0); MEAN PLATELET VOLUME 7.3 FL (7.0-11.0); MONO % 9.5 % (0.0-8.0); MONOCYTE # 0.7 TH/MM3 (0-0.9); NEUT % 60.7 % (16.0-70.0); PLATELET COUNT 188 TH/MM3 (150-450); RED BLOOD COUNT 4.23 MIL/MM3 (4.50-5.90); RED CELL DISTRIBUTION WIDTH 15.3 % (11.6-17.2); WHITE BLOOD COUNT 7.1 TH/MM3 (4.0-11.0)
[2017-07-06 03:41] LABS: ALBUMIN 3.4 GM/DL (3.4-5.0); ALT (GPT) 22 U/L (12-78); AST (GOT) 15 U/L (15-37); BICARBONATE 30.2 MEQ/L (21.0-32.0); BLOOD UREA NITROGEN 28 MG/DL (7-18); CHLORIDE 107 MEQ/L (98-107); GLOMERULAR FILTRATION RATE 48 ML/MIN (>89); GLUCOSE,RANDOM 120 MG/DL (74-106); SODIUM (NA) 143 MEQ/L (136-145)
[2017-07-06 03:43] LABS: ALKALINE PHOSPHATASE 91 U/L (45-117); TOTAL BILIRUBIN ADULT 0.3 MG/DL (0.2-1.0); TOTAL PROTEIN 7.4 GM/DL (6.4-8.2)
--- NOTE | 2017-07-06 04:36 | RADRPT ---
EXAM DATE/TIME: 07/06/2017 03:43 [facility] COMPARISON: CT ABDOMEN & PELVIS W/O CONTRAST, March 08, 2017, 22:08. INDICATIONS : Lower back pain and right buttock pain. ORAL CONTRAST: No oral contrast ingested. RADIATION DOSE: 24.57 CTDIvol (mGy) MEDICAL HISTORY : Congestive heart failure. Myocardial infarction. Cardiovascular diseaseCVA. Ulc er. Renal calculi. Prostate cancer. SURGICAL HISTORY : Prostatectomy. ENCOUNTER: Initial ACUITY: 2 days PAIN SCALE: 6/10 LOCATION: Right lower back TECHNIQUE: Volumetric scanning of the abdomen and pelvis was performed. Using automated exposure control and adjustment of the mA and/or kV according to patient size, radiation dose was kept as low as reasonably achievable to obtain optimal diagnostic quality images. DICOM format image data is av ailable electronically for review and comparison. FINDINGS: CT Abdomen: The spleen, pancreas, kidneys, adrenals are unremarkable. There is no evidence for any ap preciable pathological adenopathy, free fluid, or bowel obstruction. There is a tiny left lung base n odule measures 3 mm no significantly changed. Approximate 1.9 cm hepatic cyst is present not changed and there is a large gallstone. There is old fracture of right L1 transverse process. There are scatt ered diverticuli mainly in the sigmoid colon without definite signs of diverticulitis. Chronic vascul ar calcifications are present involving the aorta, iliac arteries without any significant stenosis or aneurysmal dilatations for technique. CT pelvis: There are partially calcified densities in the patient's subcutaneous tissues anterior to the symphysis pubis benign in appearance and chronic with one area that measures 1 cm in size behind the rectus abdominis muscle. There may be partially vascular and have not changed. There are degenera tive changes and possible bulging discs in the lower lumbosacral spine not adequately characterized. CONCLUSION: Stable gallstone, hepatic cyst and chronic changes as above. Luciano Peralta MD on July 06, 2017 at 4:31 Board Certified Radiologist. This report was verified electronically.
[2017-07-06] MEDS ORDERED: LIDO1PAD52 TOPICAL (04:42)
[2017-07-06] MEDS ORDERED: BACL10TA PO (04:42)
[2017-07-06] MEDS ORDERED: ACETAMINOPHEN/HYDROcodone 325 MG/5 MG TAB PO ONE (05:15)
== END 2017-07-06 05:25 | disposition home or self-care (01) ==
LOC: NEPD 02:09
DX: M54.5 Low back pain (principal); K80.80 Other cholelithiasis without obstruction; K76.89 Other specified diseases of liver; G30.9 Alzheimer's disease, unspecified; F02.80 Dementia in other diseases classified elsewhere, unspecified severity, without behavioral disturbance, psychotic disturbance, mood disturbance, and anxiety; I13.0 Hypertensive heart and chronic kidney disease with heart failure and stage 1 through stage 4 chronic kidney disease, or unspecified chronic kidney disease; I50.9 Heart failure, unspecified; N18.9 Chronic kidney disease, unspecified; M19.90 Unspecified osteoarthritis, unspecified site
CPT/HCPCS: 74176; 80053; 85025; 96374; 99284; J2360